=== PATIENT | male | born 1935 | race Caucasian/White ===

== ENCOUNTER 2017-03-23 14:05 | Emergency (ER) | payer MEDICARE, OTHER ==
[2017-03-23] MEDS ORDERED: LIDOCAINE 2%-EPI 1:100000 20 ML MDV ONE (14:26)
[2017-03-23] MEDS ORDERED: BACITRACIN OINT TOP STA (14:58)
[2017-03-23] MEDS ORDERED: TETANUS/DIPHTHERIA/PERTUSSIS 0.5 ML SYRINGE IM ONE ×2 (14:58→15:17)
--- NOTE | 2017-03-23 14:58 | ED Physician Documentation ---
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 He has a laceration there. Last tetanus was 6 years ago. No other injuries. No headache or neck pain. Not anticoagulated.) Review of Systems Ten Systems: 10 systems reviewed and negative Constitutional: reports: Reviewed and negative Ears: reports: Reviewed and negative Nose: reports: Reviewed and negative PD PAST MEDICAL HISTORY - Past Medical History Past Medical History: Yes Cardiovascular: High cholesterol HEENT: Other Other Past Medical History: Pressure to the eyes. - Past Surgical History Past Surgical History: No - Present Medications Home Medications: Ambulatory Orders Medication Instructions Recorded Confirmed Atorvastatin [Lipitor] 40 mg PO DAILY 03/23/17 03/23/17 Bacitracin Zinc 1 gm TP TID #1 oint...g. 03/23/17 Latanoprost 1 drops EACHEYE DAILY 03/23/17 03/23/17 - Allergies Allergies/Adverse Reactions: Allergies Allergy/AdvReac Type Severity Reaction Status Date / Time No Known Drug Allergies Allergy Verified 03/23/17 14:15 - Social History Does the pt smoke?: No Smoking Status: Never smoker Does the pt drink ETOH?: Yes Does the pt have substance abuse?: No - Immunizations Immunizations are current?: Yes PD ED PE NORMAL - Vitals Vital signs reviewed: Yes - General General: Alert and oriented X 3, No acute distress - HEENT HEENT: PERRL, EOMI, Other (There is a 3 cm fairly deep laceration over the upper cheek/inferior orbit on the right. There is no bony tenderness. No facial numbness. Smile is symmetric.) - Neck Neck: Supple, no meningeal sign, No bony TTP - Cardiac Cardiac: RRR, No murmur - Neuro Neuro: Alert and oriented X 3 Eye Opening: Spontaneous Motor: Obeys Commands Verbal: Oriented GCS Score: 15 - Psych Psych: Normal mood, Normal affect Results - Vitals Vitals: Vital Signs - 24 hr 03/23/17 14:11 Temperature 36.0 C L Heart Rate 92 Respiratory 16 Rate Blood Pressure 158/71 H O2 Saturation 99 Oxygen O2 Source Room air Procedures - Laceration (location) face Length in cm: 3 Wound type: Linear, Into muscle Neurovascular status: Sensory intact, Motor intact, Vascular intact Anesthesia: Lidocaine 2% with epi Wound Preparation: Betadine, Irrigated copiously NS Deep layer closure: Vicryl (5-0 3 sutures) Skin layer closure: Prolene, Interrupted, Size #-0 - enter number (6-0), Sutures - enter # (16) Other: Patient tolerated well, No complications, Neurovascular intact, Tetanus booster given Complexity: Intermediate Departure - Departure Disposition: 01 Home, Self Care Clinical Impression: Laceration Condition: Good Record reviewed to determine appropriate education?: Yes Instructions: ED Laceration Facial Sutr Tape Prescriptions: Bacitracin Zinc 1 gm TP TID #1 oint...g. Comments: Follow up with Dr. Noble in 6 days for suture removal, keep it moist with bacitracin ointment which is prescribed. Return if worse or if he develop a headache, neck pain, or other new apparent injuries. Your blood pressure was elevated today on check into the emergency department. This does not mean that you have hypertension, it is a common phenomenon to come to the emergency department and have elevated blood pressure. I recommend that you see your primary care physician within the week to have it rechecked when you are feeling better.
[2017-03-23] MEDS ORDERED: BACITRACIN OINT TOP ONE (15:18)
[2017-03-23 15:45] VITALS: BP 124/76
== END 2017-03-23 15:33 | disposition home or self-care (01) ==
LOC: ED 14:05
DX: S01.411A Laceration without foreign body of right cheek and temporomandibular area, initial encounter (principal); W18.09XA Striking against other object with subsequent fall, initial encounter; R03.0 Elevated blood-pressure reading, without diagnosis of hypertension; E78.00 Pure hypercholesterolemia, unspecified; Z23 Encounter for immunization
CPT/HCPCS: 12052; 90471; 90715; 99282; 99283; A9270

== ENCOUNTER 2019-05-22 10:59 | Outpatient (CLI) | payer MEDICARE, OTHER ==
--- NOTE | 2019-05-22 16:56 | XRAY Report ---
Reason: RIGHT KNEE PAIN Procedure Date: 05/22/2019 Accession Number: [id number] / [id number] Procedure: WCP - Knee 3 View RT CPT Code: Final Report FULL RESULT: EXAM: RIGHT KNEE RADIOGRAPHY EXAM DATE: 05/22/2019 10:59 AM. CLINICAL HISTORY: RIGHT KNEE PAIN. COMPARISON: None. TECHNIQUE: 3 views. FINDINGS: Bones: Normal. No fractures or bone lesions. Joints: Small to moderate suprapatellar effusion. Normal alignment. Significant medial compartmental narrowing with remodeling of articular contours and marginal spurring along medial tibial plateau. Mild patellofemoral joint space narrowing with marginal spurring. Soft Tissues: Normal. No soft tissue swelling. IMPRESSION: 1. Moderate degenerative changes, most pronounced in medial compartment. Kellgren Larry Grade 3-4. 2. Small to moderate joint effusion. Kellgren and Larry classification of osteoarthritis: Grade 0: no radiographic features of osteoarthritis are present Grade 1: doubtful joint space narrowing (JSN) and possible osteophytic lipping Grade 2: definite osteophytes and possible JSN on anteroposterior weight-bearing radiograph Grade 3: multiple osteophytes, definite JSN, sclerosis, possible bony deformity Grade 4: large osteophytes, marked JSN, severe sclerosis and definite bony deformity RADIA
== END 2019-05-22 11:00 | disposition home or self-care (01) ==
LOC: DI.WCP 10:59
PROVIDERS: ATTEND Family Medicine
DX: M17.11 Unilateral primary osteoarthritis, right knee (principal); M25.461 Effusion, right knee

== ENCOUNTER 2019-08-07 09:55 | Outpatient (CLI) | payer MEDICARE, OTHER | END 2019-08-07 09:56 | disposition critical access hospital (66) | LOC: EMS 09:55 | PROVIDERS: ATTEND Surgery | DX: R51 Headache (principal); R53.1 Weakness | CPT/HCPCS: A0425; A0429 ==

== ENCOUNTER 2019-08-07 10:11 | Emergency (ER) | payer MEDICARE, OTHER ==
--- NOTE | 2019-08-07 10:19 | ED Physician Documentation ---
PD HPI Fall - Stated complaint Stated Complaint: STROKE LIKE SYMPTOMS - History obtained from History obtained from: Patient - History of Present Illness Mechanism of injury: Other (This is a healthy 84-year-old gentleman that lives alone. He has a neighbor that visits him every couple of days. The neighbor saw him yesterday and he was in his normal state of health. Reportedly the patient came down the stairs this morning and evidently did okay and made himself a bagel. He thinks that was about 7:00. Then august be 730 he took a fall. He has obvious stroke findings but patient had not noted it so the time of onset is not exactly clear. It sounds like he made it down the stairs and made the bagel at 7 AM with his current symptoms I do not think he would have been able to do that if the stroke had been going on then. He denied injury or hitting his head in the fall.) - Additional information Additional information: Blood sugar prior to arrival was 109 Review of Systems Ten Systems: 10 systems reviewed and negative Constitutional: denies: Fever, Chills Cardiac: reports: Reviewed and negative Respiratory: reports: Reviewed and negative PD PAST MEDICAL HISTORY - Past Medical History Cardiovascular: High cholesterol HEENT: Other - Past Surgical History Past Surgical History: No - Present Medications Home Medications: Ambulatory Orders Medication Instructions Recorded Confirmed Atorvastatin [Lipitor] 40 mg PO DAILY 03/23/17 03/23/17 Bacitracin Zinc 1 gm TP TID #1 oint...g. 03/23/17 Latanoprost 1 drops EACHEYE DAILY 03/23/17 03/23/17 - Allergies Allergies/Adverse Reactions: Allergies Allergy/AdvReac Type Severity Reaction Status Date / Time No Known Drug Allergies Allergy Verified 08/07/19 10:30 - Social History Does the pt smoke?: No Smoking Status: Never smoker Does the pt drink ETOH?: Yes Does the pt have substance abuse?: No - Family History Family history: reports: Non contributory - Immunizations Immunizations are current?: Yes PD ED PE NORMAL - Vitals Vital signs reviewed: Yes - General General: Alert and oriented X 3, No acute distress, Other (Thinks it is August 01 as opposed to August 05 but otherwise alert and oriented) - HEENT HEENT: PERRL - Neck Neck: Supple, no meningeal sign, No bony TTP - Cardiac Cardiac: RRR, No murmur - Respiratory Respiratory: No respiratory distress, Clear bilaterally - Abdomen Abdomen: Soft, Non tender - Back Back: No CVA TTP, No spinal TTP - Derm Derm: Normal color, Warm and dry - Extremities Extremities: No edema, No calf tenderness / cord - Neuro Neuro: Alert and oriented X 3, Normal speech Results - Vitals Vitals: Vital Signs - 24 hr 08/07/19 08/07/19 08/07/19 10:13 10:39 10:57 Temperature 36 C L Heart Rate 71 70 60 Respiratory 23 16 17 Rate Blood Pressure 166/150 H 156/72 H 167/78 H O2 Saturation 97 99 98 08/07/19 08/07/19 11:03 11:27 Temperature Heart Rate 58 L 76 Respiratory 17 17 Rate Blood Pressure 176/72 H 161/90 H O2 Saturation 98 100 Oxygen O2 Source Room air - EKG (time done) 1040 Rate: Rate (enter#) (71) Rhythm: NSR [place]: Normal Intervals: Prolonged [place] QRS: Normal Ischemia: Non specific changes Compare to prior EKG: Old EKG unavailable Computer interpretation: Agree with computer - Labs Labs: Laboratory Tests 08/07/19 08/07/19 08/07/19 10:49 10:49 11:19 WBC 7.3 RBC 4.20 L Hgb 13.6 L Hct 40.8 L MCV 97.1 H MCH 32.4 H MCHC 33.3 RDW 12.7 Plt Count 240 MPV 9.5 Neut # (Auto) 5.2 Lymph # (Auto) 1.3 L Otero # (Auto) 0.5 Eos # (Auto) 0.2 Baso # (Auto) 0.1 Absolute Nucleated RBC 0.00 Nucleated RBC % 0.0 PT INR Whole Blood INR 1.1 Sodium 138 Potassium 4.1 Chloride 107 Carbon Dioxide 22 Anion Gap 9.0 BUN 31 H Creatinine 0.8 Estimated GFR (MDRD) 93 Glucose 101 H Calcium 9.2 Total Bilirubin 1.6 H AST 30 ALT 20 Alkaline Phosphatase 33 L Total Protein 7.7 Albumin 4.5 Globulin 3.2 Albumin/Globulin Ratio 1.4 Lipase 26 08/07/19 11:19 WBC RBC Hgb Hct MCV MCH MCHC RDW Plt Count MPV Neut # (Auto) Lymph # (Auto) Otero # (Auto) Eos # (Auto) Baso # (Auto) Absolute Nucleated RBC Nucleated RBC % PT 13.4 H INR 1.2 Whole Blood INR Sodium Potassium Chloride Carbon Dioxide Anion Gap BUN Creatinine Estimated GFR (MDRD) Glucose Calcium Total Bilirubin AST ALT Alkaline Phosphatase Total Protein Albumin Globulin Albumin/Globulin Ratio Lipase - Rads (name of study) CTA Head Neck Radiology: EMP read contemporaneously (R ICA occlusion with stenosis in R Vert and R LOCKSTITCH WAISTLINE JOINER) CT Head Radiology: EMP read contemporaneously (Involving the right MCA stroke, subacute in appearance) PD MEDICAL DECISION MAKING - ED course ED course: 84-year-old gentleman presents with what looks like an acute stroke. The time of onset is not quite clear. He has a "rasmussen indifference" about the situation. It sounds like he was able to make it down the stairs at 7 AM, but the appearance of his head CT suggest that this is significantly older than just a few hours old. The last time he was seen normal was yesterday. As such the case was discussed by phone with Dr. Hollie Tripp at [facility]. She agrees he is not a TPA candidate but it looks like he is got a cut off in the carotid and they were bringing him down as a code IR for potential intervention there. - Critical Care Time(min): 40 Time Includes: Direct patient care, Review records, Reassess patient, Document care, Coordinate care, Medical consult, Family consult for tx dec Data interpretation: Labs, Pulse ox Procedures excluded from critical care time: EKG Departure - Departure Disposition: 02 Transfer Acute Care Hosp Clinical Impression: Cerebrovascular accident (CVA), Carotid occlusion, right Condition: Critical Discharge Date/Time: 08/07/19 11:44 NIHSS - Time Time: 10:12 - Level of Consciousness Level of consciousness: (0) Alert, Keenly responsive LOC Questions: (0) Answers both Q's correct LOC Commands: (0) Performs both correctly - Gaze Best Gaze: (1) Partial gaze palsy (cannot look left past midline) - Visual Visual: (0) No loss - Facial Palsy Facial Palsy: (2) Partial paralysis - Motor Arms (both separate) Motor Arm (right): (0) No drift Motor Arm (left): (1) Drift - Motor Legs (both separate) Motor Leg (right): (0) No drift Motor Leg (left): (1) Drift - Limb Ataxia Limb Ataxia: (0) Absent - Sensory Sensory: (1) Mywh-wn-dxdcwmyo loss (LUE>LLE) - Best Language Best Language: (0) No aphasia - Dysarthria Dysarthria: (0) Normal - Extinction and Inattention (formally neg Extinction and inattention: (1) Visual,tactile,auditory,spatial, or personal inattention - Total Score/Results Total Score/Result: 7
[2019-08-07] MEDS ORDERED: IOVERSOL 320 100 ML VIAL IVP ONE ×2 (10:43→14:16)
--- NOTE | 2019-08-07 10:49 | CT Report ---
Reason: stroke Procedure Date: 08/07/2019 Accession Number: [id number] / [id number] Procedure: CT - Head W/O Stroke Protocol CPT Code: Final Report FULL RESULT: CT HEAD WITHOUT CONTRAST INDICATION: 84-year-old male with left-sided weakness. Concern for CVA. Please assess. TECHNIQUE: Sequential 5 mm axial images were obtained through the brain. In accordance with CT protocol optimization, one or more of the following dose reduction techniques were utilized for this exam: automated exposure control, adjustment of mA and/or KV based on patient size, or use of iterative reconstructive technique. COMPARISON: None. FINDINGS: There is generalized dilatation of the cerebral cortical sulci and cerebellar folia, considered within normal limits for stated age. There is a mild ex-vacuo dilatation of the third and lateral ventricles. No hydrocephalus. There is excessive noise (quantum mottle artifact) on brain window images that decreases the sensitivity for detection of subtle parenchymal abnormality such as acute ischemic infarction. In addition, there is artifact on multiple axial slices secondary to patient motion. A well-defined geographic area of abnormal hypodensity is identified involving cortex and underlying white matter in the lateral aspect of the mid and posterior right temporal lobe and anterior right occipital lobe, consistent with infarction in the right MCA territory. The age of the infarction is difficult to determine. There is positive mass-effect manifested as cortical sulcal effacement suggesting that this probably represents a recent (acute to early subacute) infarction. There is no evidence of complicating hemorrhage. A mild to moderate amount of white matter disease is identified in the supratentorial brain, likely representing chronic microangiopathy. The attenuation of the cortex and white matter is otherwise unremarkable. There is no intracranial hemorrhage. No abnormal extra-axial fluid collection. Calcified atherosclerotic plaque is noted in the carotid siphons. The middle ear cavities and mastoid air cells appear well aerated and clear. Polypoid mucosal thickening is identified in the inferior right maxillary sinus. There is opacification or subtotal opacification of a few anterior ethmoid air cells bilaterally. The paranasal sinuses are otherwise essentially clear. Noted is a horizontally impacted maxillary molar that protrudes through the floor of the left maxillary sinus into the alveolar recess (see image 1 of series #3 and image 12 of series #5). IMPRESSION: 1. This is a motion limited examination. 2. A well-defined, wedge-shaped area of hypodensity is seen involving cortex and white matter in the lateral right temporal and occipital lobes, consistent with recent (? EArly subacute) infarction in the right MCA territory. There is no evidence of complicating hemorrhage. Only mild localized mass-effect is demonstrated. 3. No other acute/subacute intracranial pathology is identified. The critical test notification system was initiated by Dr. Italo Smith at 10:41 AM on 08/07/2019. The above critical test findings were discussed with Dr. Gage Lynn by Dr. Italo Smith at 10:47 AM on 08/07/2019.
[2019-08-07 10:58] LABS: BASOPHILS # (AUTO) 0.1 10^3/uL (0.0-0.1); BASOPHILS % (AUTO) 0.7 %; EOSINOPHILS # (AUTO) 0.2 10^3/uL (0.0-0.7); EOSINOPHILS % (AUTO) 2.3 %; HGB - HEMOGLOBIN 13.6 g/dL (14.0-18.0); LYMPHOCYTES # (AUTO) 1.3 10^3/uL (1.5-3.5); MEAN CORPUSCULAR HEMOGLOBIN 32.4 pg (27.0-31.0); MEAN CORPUSCULAR HGB CONC 33.3 g/dL (32.0-36.0); MEAN CORPUSCULAR VOLUME 97.1 fL (80.0-94.0); MEAN PLATELET VOLUME 9.5 fL (7.4-11.4); MONOCYTES # (AUTO) 0.5 10^3/uL (0.0-1.0); NEUTROPHILS # (AUTO) 5.2 10^3/uL (1.5-6.6); NEUTROPHILS % (AUTO) 71.6 %; PLT - PLATELET COUNT 240 10^3/uL (130-450); RED CELL DISTRIBUTION WIDTH 12.7 % (12.0-15.0); WHITE BLOOD COUNT 7.3 x10^3/uL (4.8-10.8)
--- NOTE | 2019-08-07 11:06 | CT Report ---
Reason: Ivory miller Procedure Date: 08/07/2019 Accession Number: [id number] / [id number] Procedure: CT - ANGIO HEAD W/WO CPT Code: Final Report FULL RESULT: CT ANGIOGRAM HEAD AND POSTCONTRAST HEAD CT INDICATION: 84-year-old male with left-sided weakness. Concern for CVA. TECHNIQUE: CT angiogram head 80 mL of Optiray 320 contrast were injected at a rapid rate through a large bore, left antecubital intravenous catheter. The head was scanned helically during arterial phase. The data was reconstructed into 0.5 mm axial images. In addition, MIP reconstructions have been generated in multiple projections to allow better assessment of the intracranial arteries. Postcontrast head CT Sequential 5 mm axial images were obtained through the brain following the CT angiogram. In accordance with CT protocol optimization, one or more of the following dose reduction techniques were utilized for this exam: automated exposure control, adjustment of mA and/or KV based on patient size, or use of iterative reconstructive technique. COMPARISON: None. FINDINGS: Anterior circulation: There is calcified plaque at the left carotid siphon without significant associated left ICA stenosis. No left ICA aneurysm is demonstrated. There is absence of intraluminal contrast in the right ICA, extending from distal cervical segment, craniad, into the petrous and cavernous segments. There is a small amount of intraluminal contrast in the supraclinoid and paraclinoid segments. There is reconstitution of the supraclinoid ICA. The A1 segment of the right anterior cerebral artery is mildly hypoplastic. However, the left A1 segment is robust and an anterior indicating artery is demonstrated. There is contrast filling of a few of the anterior aspect of the right posterior communicating artery, however, no contrast is seen in the mid and distal thirds of the posterior communicating artery concerning for possible thrombosis. There is relatively good filling of the M1 segment right MCA without significant M1 segment stenosis. In addition, there is filling of M2 branches at the bifurcation with obvious stenosis or occlusion affecting the proximal M2 branches. The left MCA is unremarkable. No aneurysm is demonstrated and there is no evidence of occlusion or hemodynamically significant stenosis affecting the main branches of the left MCA. Posterior circulation: The proximal and middle thirds of the right vertebral artery are patent. There is little if any intraluminal contrast in the distal third, extending to the vertebrobasilar junction suggesting either occlusion or high-grade stenosis. A small amount of intraluminal contrast is seen in small caliber right PICA. The left vertebral artery is patent throughout. No left PICA is identified. The basilar artery is small but patent throughout. There is filling of both superior cerebellar arteries. A small size limits assessment, however, grossly no significant stenosis is demonstrated. The main branches of the left [employer]IC[employer] PHYSICIAN are patent without stenosis. There is a small, likely hypoplastic P1 segment for the right posterior cerebral artery. No filling of P2 or distal right AEROSPACE MEDICINE PHYSICIAN branches is demonstrated, consistent with occlusion, age indeterminate. There is a small left posterior communicating artery. No aneurysms are demonstrated arising from the basilar artery trunk or apex. Postcontrast head CT No enhancing space-occupying mass lesion is demonstrated. There appears to be good intraluminal contrast enhancement in the dural venous sinuses and deep venous structures. IMPRESSION: CT angiogram head 1. There is occlusion of the right ICA, from below the skull base to at least the cavernous segment. There is reconstitution of the supraclinoid segment through intracranial collaterals. The main collateral appears to be from the contralateral ICA by means of the anterior communicating artery and A1 segments of the anterior cerebral arteries. 2. There is contrast within the anterior third of the right posterior communicating artery. However, no contrast is seen in the mid or distal third suggesting thrombosis, age indeterminate. 3. The main branches for the right MCA appear to be patent and the caliber is similar to the contralateral side. 4. Left ICA and main branches of the left YULI and MCA appear widely patent. An anterior communicating artery is demonstrated. There appears to be good filling of A2 and distal YULI branches bilaterally. 5. Absence of intraluminal contrast in the distal third of the V4 segment for right vertebral artery suggests either occlusion or high-grade stenosis, age indeterminate. The left vertebral artery is widely patent throughout. 6. There is a small P1 segment for the right posterior cerebral artery, probably developmentally hypoplastic. No filling of the P2 or distal right AEROSPACE MEDICINE PHYSICIAN branches is demonstrated suggesting occlusion, age indeterminate. Postcontrast head CT No enhancing space-occupying mass lesion is demonstrated. The call report notification system was initiated by Dr. Italo Smith at 10:52 AM on 08/07/2019. The above call report findings were discussed with Dr. Gage Lynn by Dr. Italo Smith at 10:57 AM on 08/07/2019.
[2019-08-07 11:27] LABS: INR 1.2 (0.8-1.2); PT - PROTHROMBIN TIME 13.4 secs (9.9-12.6)
[2019-08-07 11:28] VITALS: BP 161/90
--- NOTE | 2019-08-07 11:28 | CT Report ---
Reason: Ivory miller Procedure Date: 08/07/2019 Accession Number: [id number] / [id number] Procedure: CT - ANGIO NECK W CPT Code: Final Report FULL RESULT: CT ANGIOGRAM NECK INDICATION: 84-year-old male with left-sided weakness. Concern for CVA. Please assess. TECHNIQUE: 80 mL of Optiray 320 contrast were injected at a rapid rate through a large bore, left antecubital intravenous catheter. The neck was scanned helically during arterial phase. The data was reconstructed into 0.5 mm axial images. In addition, MIP reconstructions have been generated in a multiple projections to allow better assessment of the extracranial carotid and vertebral arteries. Significant arterial stenoses will be assessed using NASCET type measurements. In accordance with CT protocol optimization, one or more of the following dose reduction techniques were utilized for this exam: automated exposure control, adjustment of mA and/or KV based on patient size, or use of iterative reconstructive technique. COMPARISON: None. FINDINGS: There is normal branching of the aortic arch. Atherosclerotic disease is demonstrated within the arch. There is calcified plaque at the origin of the left subclavian artery. Motion and beam-hardening artifact limits evaluation, however, the possibility of hemodynamically significant stenosis at the left subclavian artery origin is considered unlikely (see image 114 of series 5). No significant stenosis is seen in the innominate artery or the proximal left common carotid artery. Right carotid artery: There is calcified plaque at the carotid bifurcation extending into the carotid bulb. There is a focal, high-grade stenosis in the bulb about 5.5 mm distal to its origin (see image 108 of series 6). There is absence of intraluminal contrast, craniad extending over a distance of about 4 mm. Then there is a small amount of intraluminal contrast extending for a short segment in the distal bulb/proximal cervical ICA for roughly 10 mm. More craniad, no intraluminal contrast is seen within the extracranial right ICA. There is no significant stenosis at the origin of the external carotid artery which appears patent. Left carotid artery: There is heavily calcified plaque in the distribution of the carotid bulb, extending along the posteromedial wall of the artery with associated narrowing. At the level of maximal narrowing the lumen is reduced to about 2.7 mm AP (image 294 of series 2). More distally, the artery measures about 5.2 mm diameter. This is consistent with a close to 50% NASCET type stenosis. The external carotid artery appears widely patent. Right vertebral artery: Hypoplastic. There is mild narrowing at the origin. The V1 segment is otherwise unremarkable. The V2 and V3 segments are patent without significant focal narrowing. Left vertebral artery: There is calcified plaque at the origin. There appears to be severe narrowing at the origin (see image 116 of series 5) however, it is difficult to obtain an accurate, NASCET type measure of stenosis at the origin. This probably represents 70% or greater narrowing. The V1 segment is otherwise unremarkable. The V2 and V3 segments are patent without significant focal stenosis. IMPRESSION: 1. Occlusion of right internal carotid artery in the neck, as described, age indeterminate. 2. Atherosclerotic plaque at the left carotid bifurcation gives rise to close to 50% narrowing in the left carotid bulb. 3. There appears to be fairly severe atherosclerotic narrowing at the origin of the dominant left vertebral artery. The actual degree of stenosis is difficult to determine on the sequences provided. No other significant stenosis is identified in the extracranial vertebral arteries.
[2019-08-07 11:36] LABS: ALBUMIN 4.5 g/dL (3.2-5.5); ALBUMIN/GLOBULIN RATIO 1.4 (1.0-2.2); BILIRUBIN,TOTAL 1.6 mg/dL (0.2-1.0); CALCIUM 9.2 mg/dL (8.5-10.3); CREATININE 0.8 mg/dL (0.6-1.2); TOTAL PROTEIN 7.7 g/dL (6.7-8.2)
== END 2019-08-07 11:44 | disposition short-term general hospital (02) ==
LOC: EDUNIT# → ED 10:11
DX: I63.9 Cerebral infarction, unspecified (principal); I65.21 Occlusion and stenosis of right carotid artery
CPT/HCPCS: 36415; 70450; 70496; 70498; 80053; 83690; 85025; 85610; 93005; 99285; 99291; Q9967

== ENCOUNTER 2019-09-25 13:18 | Outpatient (CLI) | payer MEDICARE, OTHER | END 2019-09-25 13:19 | disposition EMS.NT | LOC: EMS 13:18 | PROVIDERS: ATTEND Surgery | DX: Z03.89 Encounter for observation for other suspected diseases and conditions ruled out (principal) ==

== ENCOUNTER 2019-12-04 08:00 | Outpatient (CLI) | payer MEDICARE, OTHER ==
[2019-12-04 18:35] LABS: BILIRUBIN,URINE NEGATIVE (NEGATIVE); GLUCOSE, URINE (UA) NEGATIVE (NEGATIVE); KETONES,URINE (UA) NEGATIVE (NEGATIVE); LEUKOCYTE ESTERASE, URINE NEGATIVE (NEGATIVE); NITRITE,URINE NEGATIVE (NEGATIVE); OCCULT BLOOD,URINE NEGATIVE (NEGATIVE); PH,URINE 6.5 PH (5.0-7.5); PROTEIN,URINE NEGATIVE (NEGATIVE); UROBILINOGEN,URINE 0.2 (NORMAL) E.U./dL (NORMAL)
[2019-12-04 18:41] LABS: CLARITY,URINE CLEAR (CLEAR)
[2019-12-04 18:42] LABS: BACTERIA,URINE None Seen /HPF (None Seen); RBC,URINE 0-5 /HPF (0-5); SQUAMOUS EPITHELIAL CELL,UR NONE SEEN (<= Few)
== END 2019-12-04 23:59 | disposition home or self-care (01) ==
LOC: LAB.R 08:00
PROVIDERS: ATTEND Family Medicine
DX: R30.0 Dysuria (principal); R41.82 Altered mental status, unspecified
CPT/HCPCS: 81001; 87086

== ENCOUNTER 2020-01-22 09:15 | Outpatient (CLI) | payer MEDICARE, OTHER ==
--- NOTE | 2020-01-22 13:54 | CONSULTATION NOTE ---
Palliative Care Consultation - Referral Referring Provider: Dr. Yair Noble Time of Visit: [id number] Referral setting: Home Referral Reason: CVA with residual effects/Advanced Care Planning - Information Sources Records reviewed: Previous records reviewed History/Review of Systems obtained from: Patient, Family (significant other, Viviana), Caregiver Exam limitations: Clinical condition (cogntive impairment due to CVA) - History of Present Illness Brief History of Present Illness: This is an engaging 85-year-old male who is seen in evaluation today for initial palliative care consultation due to residual effects of CVA including left hemiparesis, cognitive deficits, and functional decline with his private caregiver and significant other, Viviana present. 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 He was "quite conscious in regards to his health and was taking his blood pressure every morning and recording it. Due to a series of unfortunate events he was transferred to [facility] and then was discharged to a rehab facility in [place]. There are limited rehab facilities available due to the coronavirus pandemic. Also unfortunate as the patient significant other of 27 years was out of state with her own health concerns and therefore the patient had temporary guardianship with his friends, José Manuel and Armida and this is subsequently transitioned to a court reported guardian, Анна. The patient was in the facility at [place] for approximately 5 weeks. He lost approximately 30 pounds in 5 weeks. He previously weighed about 190 pounds prior to his stroke. The patient's significant other reports that they needed an hoop maker in order to have the patient released. Since the patient's stroke his significant other has noted that his short-term memory is impaired but his long-term memory remains intact. He continues with residual left-sided weakness and is quite "fidgety." The patient's significant other also reports that there are times that the patient is "somewhere else." Typically he will believe that he is in another location and will proceed to report different activities regarding that. He is restless at night. The patient significant other and caregivers try to keep the patient occupied during the day and avoidance of daytime napping. He is presently on mirtazapine 15 mg nightly and quetiapine 25 mg twice daily. The patient significant other, Viviana is unclear if the quetiapine has provided relief for the patient's symptoms since initiation. She does report that it seems that in the last few weeks there has been a switch that has been turned on as the patient himself has been more pleasant to her and more engaged. Since returning back to his home, he has 24-hour caregiving support from jg Ramesh. He has also been followed by [facility] and has worked with PT, OT, and speech. He is pending to be discharged from speech as he has met his goals. He had formed quite a relationship with the speech-language pathologist and his disappointed to no longer continue that relationship. The patient is seen in his tilt in space wheelchair, well-groomed and without acute distress. He is often fidgeting with his right hand with his watch her clothing during assessment. 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 Support System: The patient has been twice. He has been with his significant other, Viviana for the last 27 years. They met attending [employer]. Both parties are anabaptism. The patient has never had any children. He and his significant other moved to [facility] [place] in 1998 as he purchased property in the area 1971 while he was stationed on [place] [facility]. 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 He also served in [place] and per his significant other was shot down serving during the war. He is a [employer] graduate from [employer] in 1959. He has enjoyed painting and water colors as well as carving and painting sculptured birds. Since his stroke he now enjoys watching the news such as [employer] in the [employer] as well as football. He has 24-hour caregiving support from jg Ramesh and has 2 primary caregivers, Joshua and Aziza. Family History - Family History Family History: Mother: , Father: Family History Comment/Other: His father at the age of 96, his mother from colon cancer at the age of 60. Medications/Allergies - Medications Home Medications: Ambulatory Orders Medication Instructions Recorded Confirmed Atorvastatin [Lipitor] 40 mg PO DAILY 03/23/17 01/22/20 Acetaminophen [Pain Reliever Adult] 15 ml PO Q8H PRN 01/22/20 01/22/20 Aspirin 81 mg PO DAILY 01/22/20 01/22/20 Levothyroxine Sodium [Synthroid] 0.5 tab PO DAILY 01/22/20 01/22/20 Lidocaine HCl [Aspercreme 1 applic TP DAILY MDD to b/l knees 01/22/20 01/22/20 Lidocaine] Menthol/Zinc Oxide [Calmoseptine 1 applic TP DAILY 01/22/20 01/22/20 Ointment] Mirtazapine 15 mg PO QPM 01/22/20 01/22/20 QUEtiapine [SEROquel] 25 tab PO .BID 1400 AND QPM 01/22/20 01/22/20 Tamsulosin HCl [Flomax] 0.4 mg PO QPM 01/22/20 01/22/20 polyethylene glycoL 3350 [Miralax] 17 gm PO DAILY PRN 01/22/20 01/22/20 - Allergies Allergies/Adverse Reactions: Allergies Allergy/AdvReac Type Severity Reaction Status Date / Time No Known Drug Allergies Allergy Verified 08/07/19 10:30 Review of Systems - Constitutional Constitutional: reports: Weight loss (appx 30lbs while in inpatient rehab, see HPI; Left MAC 26cm). denies: Fatigue, Fever - Eyes Eyes: reports: Vision loss (to left eye reported), Corrective lenses - Ears, Nose & Throat Ears, Nose & Throat: reports: Hearing loss, Hearing aids (not wearing hearing aids as he will fidget with them) - Cardiovascular Cardiovascular: denies: Palpitations, Chest pain - Respiratory Respiratory: denies: Cough - Gastrointestinal Gastrointestinal: reports: Good appetite. denies: Constipation, Diarrhea, Vomiting, Other (no cough during meals) - Genitourinary Genitourinary: reports: Incontinence. denies: Dysuria - Musculoskeletal Musculoskeletal: reports: Muscle weakness (due to CVA with left sided weakness), Joint pain (b/l knees due to OA), Assistive devices, Transfer issues. denies: Joint swelling - Integumentary Integumentary: denies: Rash - Neurological Neurological: reports: General weakness, Memory problems - Psychiatric Psychiatric: reports: Delusions, Other (sundowning behaviors reported around 1500) - Endocrine Endocrine: reports: Hypothyroidism - Hematologic/Lymphatic Hematologic/Lymphatic: denies: Recurrent infections - All Other Systems All Other Systems: reports: Reviewed and negative Physical Exam - Vital Signs Temperature: 36.5 C Pulse Rate: 70 O2 Saturation: 94 (on RA at rest) Blood Pressure: 134/66 - Physical Exam General Appearance: positive: No acute distress, Alert, Other (OOB in tilt in space wheelchair, well groomed) Eyes Bilateral: positive: Normal inspection, PERRL, Other (attempted to assess visual trin[place] but patient could not follow commands in order to test appropriately) ENT: positive: No signs of dehydration Neck: positive: Trachea midline, Other (thin) Cardiovascular: positive: Regular rate & rhythm, No murmur Respiratory: positive: No respiratory distress, Breath sounds nml. negative: Rales Abdomen: positive: Non-tender, Soft, Nml bowel sounds Skin: positive: Other (Visible skin intact) Extremities: positive: No pedal edema Neurologic/Psychiatric: positive: Disoriented to time (Disoriented and confused), Weakness, Other (Left sided weakness compared to right with lead nurse strength and resistance to force. Unable to ambulate. Unable to follow commands. Talkative.) Palliative Care Pain: Comment (b/l knees, stable with application of aspercreme) Drowsiness/Sedation: Mild (1-3) Nausea: None Anorexia: None Dyspnea: None Depression: Mild (1-3) Anxiety: None Feelings of wellbeing/Perceived Quality of Life: Comment (Patient states he "feels like a million bucks") Sleep: Variable sleep pattern Constipation: Managed, Intermittent constipation (bowel movement every other day) Performance Status: Prior to the patient's CVA in July 2019 he was fully functional and independent performing his IADLs and ADLs as well as routine exercise. After he sustained his CVA in July 2019 he has no longer ambulatory, has left-sided residual weakness, cognitive impairment, is continent of bowel and bladder, requires assistance with activities of daily living. The patient utilizes a tilt in space wheelchair. He has a Ariana lift within the home as well as a hospital bed with specialty mattress. PPS 40% - Palliative Care Discussion: The patient had the misfortune of sustaining ischemic right MCA stroke That has resulted in multiple deficits such as functional decline, left-sided weakness, cognitive impairments, and alternations in mood. It was unfortunate at the time that the patient sustained his stroke that his significant other of 27 years was in [place] with family that subsequently resulted in court report did guardianship. This is been quite distressing for the patient significant other, Viviana. Viviana plans to work with the court court appointed guardian, Анна Martin moving forward. It has led to much frustration and worry on the part of Viviana. Per Viviana's report as she changed her D POA to her son while she was in [place] due to her own health concerns the patient himself changed his D POA to long a longer and include her thus resulting in the subsequent series of events that have occurred resulting in a court appointed guardian. The patient himself does not perceive his alterations in capabilities. His caregiver for and significant other reports that he is no longer able to read or write after the stroke. He sees that he will be able to recover and if someone were to go against him he says "to hell with them." The patient himself is quite attuned to his environment and listening to all that is being said. He is quite engaged and attempts to follow the course of the conversation and contributes where he can. Viviana, has her own health concerns and this is only compounded by the patient's deterioration in his health status. Viviana questions "where is my EN?" She finds that they have good days and bad days. On the good days she sees glimmers of the patient prior to his stroke. Impression and Recommendations - Palliative Care Impression: This is an 85-year-old gentleman who had the misfortune of sustaining an ischemic right MCA stroke that has led to a functional decline, left hemiparesis, behavioral disturbance and cognitive deficits. The patient now has a court appointed guardian overseeing his care. The patient himself does not perceive his present deficits. Palliative care to continue to provide support with symptom management, exploration of goals of care, supportive listening and anticipatory guidance. Recommendations/Counseling Done: 1. CVA with residual weakness. Sustained in July 2019. Chronic/Progressive. Supportive care. Continue secondary preventative measures for stroke in optimizing blood pressure control, ASA and statin therapy. Quires 24-hour supervision within the home. Fall precautions. 2. Cognitive deficit due to CVA. Noted fidgeting as result of CVA. Provided suggestions to patient's significant other for a soft fabric child's book to fiddle with, folding laundry, as well as flipping with a Rubik's cube. Patient unlikely to return to baseline cognition and provide support where he is presently. Supportive listening provided to the patient significant other. Some noted underlying behavioral disturbances likely due to CVA. As the patient is demonstrating increased restlessness indicative of sundowning at approximately 3 PM on an almost daily basis, recommend administration of quetiapine at 2 PM and to continue 25 mg at bedtime. Continue to monitor effects of quetiapine with black box warning reviewed with the patient significant other and understanding verbalized. May need to adjust medication regimen in the future to optimize comfort. 3. Depression with history of weight loss. More acute during inpatient rehabilitation. MAC to left upper arm 26 cm. We will continue to monitor MAC circumference. No concerns reported regarding appetite. Continue mirtazapine 15 mg nightly. Continue to monitor. 4. Caregiver burden. The patient significant other, Viviana has underlying health issues of her own and no local family. She does have support from close local friends. However, she has been experiencing grief over the loss of the patient's formal herself and requires additional emotional support that would be beneficial to be provided by palliative care social work. Supportive listening provided. 5. Advanced care planning. Noted in last office visit in 09/2019 that a POLST was completed as DN AR with comfort measures. We will follow-up regarding this POLST in subsequent visit. The patient significant other is requesting that the influenza vaccine be administered to the patient as he is homebound. Will request influenza vaccine administered at upcoming home visit. The patient has experienced trauma due to his experience in the rehabilitation center at [place] and the patient significant other prefers that the patient have his care within the home to limit distress and disruption. Moving forward we will continue to tease out goals of care. Time Spent: F/u n 2-3 weeks or prn. Total time spent 105 minutes with greater than 50% of this spent in counseling and coordination of care with patient and significant other, Viviana; palliative care philosophy; examination of patient; review of symptom management and anticipatory guidance. Contacted patient's court appointed guardian, Анна Pantoja [phone] to update regarding POC with questions answered and addressed. Анна is to meet the patient in his home the week of 01/27/2020. Disclaimer: The chart note was formulated using voice recognition technology and unfortunately sound alike errors may occur.
== END 2020-01-22 09:16 | disposition home or self-care (01) ==
LOC: PC 09:15
PROVIDERS: ATTEND Nurse Practitioner Family
DX: Z51.5 Encounter for palliative care (principal); I69.319 Unspecified symptoms and signs involving cognitive functions following cerebral infarction; I69.354 Hemiplegia and hemiparesis following cerebral infarction affecting left non-dominant side; I69.315 Cognitive social or emotional deficit following cerebral infarction; I69.398 Other sequelae of cerebral infarction; F05 Delirium due to known physiological condition; E78.00 Pure hypercholesterolemia, unspecified; R63.4 Abnormal weight loss; F32.9 Major depressive disorder, single episode, unspecified; Z79.899 Other long term (current) drug therapy; Z79.82 Long term (current) use of aspirin; Z99.3 Dependence on wheelchair; Z87.891 Personal history of nicotine dependence; Z65.3 Problems related to other legal circumstances
CPT/HCPCS: 99345

== ENCOUNTER 2020-02-05 15:20 | Outpatient (CLI) | payer MEDICARE, OTHER ==
--- NOTE | 2020-02-05 19:04 | CONSULTATION NOTE ---
Palliative Care Follow Up - Referral Referring Provider: Dr. Yair Noble Time of Visit: [id number] Referral setting: Home Referral Reason: Dementia with behavioral disturbances/History CVA with residual effects/Flu - Information Sources Records reviewed: Previous records reviewed History/Review of Systems obtained from: Patient, Family (significant other, Viviana), Friend (Armida) Exam limitations: Clinical condition (Cognitive impiarment due to dementia and history of CVA) - History of Present Illness Update Brief HPI Update: This is an 85-year-old man who was seen in follow-up today for dementia with behavioral disturbances, residual effects of CVA including left hemiparesis and caregiver burden with his significant other, Viviana and family friend, Armida present. Please see detailed history and HPI from 01/22/2020. The patient has a history of being restless at night. The patient significant other, Viviana and his caregivers try to keep the patient occupied during the day with avoidance of daytime napping. When last evaluation it was reported that the patient was demonstrating increased restlessness in the late afternoon indicative of sundowning and his quetiapine dosing was changed with his administration times for 25 mg at 1500 and at bedtime. It is difficult for the patient's significant other and caregivers to administer medications other than the morning as the patient is suspicious and will only take his medications and yogurt. He will however, take his liquid acetaminophen. Hit has not been always successful but the patient was receiving his afternoon dose of quetiapine. The patient has 2 primary private caregivers providing 24/ care, ARETHA and Aziza. It has been noted that with Aziza, the patient has developed a rapport that he is more agreeable and is not can additive or belligerent. Prior to yesterday, the patient was calm while Aziza was within the home. Then beginning yesterday in till today the patient has been lashing out verbally and he was combative yesterday to his private caregiver.Aziza has been with the patient since he has come home from [facility]. However, he has gone through 2 prior private caregivers due to his outbursts and can batted episodes. He was initiated on quetiapine 25 mg daily at the end of December by his primary care provider. His appetite is presently stable. No reported concerns with coughing surrounding mealtime. He is status post [facility]LINE [facility]INATOR evaluation with [facility] and has been discharged. The patient also does have fluctuations with his mood with some possible underlying dementia and is presently on mirtazapine 15 mg nightly. Patient is seen today in his tilt in space wheelchair, well-groomed and without apparent distress. He is quite conversant today. 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 Social History - Living Situation Living arrangement: At home Living Situation: With spouse/s.o. Support System: The patient has been twice. He has been with his significant other, Viviana for the last 27 years. They met while attending [employer] and both parties are judaism. The patient has never had any children. They relocated to [facility] in 1998. 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 He graduated from the [employer] in [place]. Since the patient's discharge from subacute rehab at a facility in [place], the patient has had 24-hour caregiving support from visiting Domitila. He has 2 caregivers, Joshua and Aziza. Medications/Allergies - Medications Home Medications: Ambulatory Orders Medication Instructions Recorded Confirmed Atorvastatin [Lipitor] 40 mg PO DAILY 03/23/17 01/22/20 Acetaminophen [Pain Reliever Adult] 15 ml PO Q8H PRN 01/22/20 01/22/20 Aspirin 81 mg PO DAILY 01/22/20 01/22/20 Levothyroxine Sodium [Synthroid] 0.5 tab PO DAILY 01/22/20 01/22/20 Lidocaine HCl [Aspercreme 1 applic TP DAILY MDD to b/l knees 01/22/20 01/22/20 Lidocaine] Menthol/Zinc Oxide [Calmoseptine 1 applic TP DAILY 01/22/20 01/22/20 Ointment] Mirtazapine 15 mg PO QPM 01/22/20 01/22/20 Tamsulosin HCl [Flomax] 0.4 mg PO QPM 01/22/20 01/22/20 polyethylene glycoL 3350 [Miralax] 17 gm PO DAILY PRN 01/22/20 01/22/20 risperiDONE [RisperDAL] 0.25 mg PO DAILY 02/05/20 02/05/20 - Allergies Allergies/Adverse Reactions: Allergies Allergy/AdvReac Type Severity Reaction Status Date / Time No Known Drug Allergies Allergy Verified 08/07/19 10:30 Review of Systems - Constitutional Constitutional: reports: Weight loss (appx 30lbs while in inpatient rehab, Left MAC 26cm January 2020). denies: Fever - Eyes Eyes: reports: Vision loss (to left eye reported) - Ears, Nose & Throat Ears, Nose & Throat: reports: Hearing loss, Hearing aids (not wearing hearing aids as he will fidget with them) - Cardiovascular Cardiovascular: denies: Chest pain - Respiratory Respiratory: denies: Wheezing - Gastrointestinal Gastrointestinal: reports: Good appetite. denies: Constipation, Vomiting - Genitourinary Genitourinary: reports: Incontinence. denies: Dysuria - Musculoskeletal Musculoskeletal: reports: Muscle weakness (due to CVA with left sided weakness), Joint pain (b/l knees due to OA), Assistive devices, Transfer issues. denies: Joint swelling - Integumentary Integumentary: denies: Rash - Neurological Neurological: reports: General weakness, Memory problems - Psychiatric Psychiatric: reports: Delusions, Aggitation, Other (+sundowning; +verbal outbursts) - Endocrine Endocrine: reports: Hypothyroidism - All Other Systems All Other Systems: reports: Reviewed and negative (Patient is a poor historian due to dementia. Review of systems supplemented patient's significant other.) Physical Exam - Vital Signs Temperature: 36.5 C Pulse Rate: 70 O2 Saturation: 93 (on RA at rest) Blood Pressure: 134/85 (left wrist cuff) - Physical Exam General Appearance: positive: No acute distress, Alert, Other (OOB in tilt in space wheelchair, well groomed) Eyes Bilateral: positive: PERRL ENT: positive: Pharynx nml, No signs of dehydration. negative: Purulent nasal drainage, Oral lesions Neck: positive: Trachea midline, Other (thin) Cardiovascular: positive: Regular rate & rhythm, No murmur Respiratory: positive: No respiratory distress, Breath sounds nml, Diminished in bases Abdomen: positive: Non-tender, Soft, Nml bowel sounds Skin: positive: Other (Visible skin intact) Extremities: positive: No pedal edema Neurologic/Psychiatric: positive: Disoriented to time, Weakness, Other (Left sided weakness compared to right. Tangential in this thought process this afternoon with confabulation of stories. No evidence of aggitation.) Palliative Care - POLST Patient has POLST: Yes POLST Status: DNR, Comfort Measures Pain: Pain unchanged (bilateral knees due to OA, controlled with application of aspercream or PRN tylenol) Depression: Mild (1-3) Feelings of wellbeing/Perceived Quality of Life: Excellent Sleep: Variable sleep pattern Constipation: Managed, Intermittent constipation Performance Status: Prior to the patient's CVA in July 2019 he was fully functional and independent performing his IADLs and ADLs as well as a routine exercise regimen. After he sustained a CVA in July 2019 he is no longer ambulatory. Has left hemiparesis, incontinent of bowel and bladder, and requires assistance with activities of daily living. He is in a tilt in space wheelchair. He has a Ariana lift within the home as well as a hospital bed with specialty mattress. - Palliative Care Discussion: The patient has good days and bad days. There is reported difference in how his 2 private caregivers provide their caregiving skills.He respondents more favorably to 1 than the other given that there are different methods of caretaking. He does have aggressive outbursts and does have a history of being combative. He also has demonstrated evidence of sundowning behavior. However, due to the patient's need to have his medications crushed or in a liquid form and administration is often difficult. The patient significant other, Viviana was out of town when the patient sustained his CVA resulting in the patient having a court appointed guardian, Анна Martin. Upon review today with Анна, she first sees a partnership with Viviana with Viviana leading the decision-making process as she "knows Tank best." For smaller decisions Анна reports that Viviana may make that determination for medical management on her own but for larger, complex decisions Анна wishes to be included in the decision-making process. Has the patient significant other, Viviana was not present at the time the patient sustained his CVA she has felt like she is "walking on egg shells in my own home." She has private caregivers within her home and she has delegated to spaces that are soley hers. She is an individual that does not wish to have conflict and this is how she approaches the caregivers as well as the patient himself. Strongly encouraged that she not be afraid to read [facility] assistance given her own health concerns. The patient's SO concern is if something were to happen to her then she would not wish the patient to go to a facility, if at all possible. Impression and Recommendations - Palliative Care Impression: This is an 85-year-old gentleman who has had the misfortune of sustaining an ischemic right MCA stroke that has led to a functional decline, left hemiparesis and behavioral disturbances. Prior to the patient's CVA he demonstrated evidence of cognitive impairment, likely some underlying Alzheimer's dementia. The patient will have intermittent periods of agitation and aggressive behavior. This is difficult to manage given his suspicion regarding oral medications. Will trial liquid risperidone. Palliative care to continue provide support with symptom management, exploration of goals of care, supportive listening and anticipatory guidance. Recommendations/Counseling Done: 1. Dementia with behavioral disturbances. Multifactorial due to underlying cognitive deficits prior to sustaining a CVA in July 2019. Given that the patient displays increased restlessness typically and the evenings is likely indicative of sundowning behavior. He was tried on quetiapine 25 mg at 2 PM and to remain on quetiapine 25 mg at bedtime. However, given the patient's av ersions to pills and the need for administration in pudding, it is difficult for the patient's significant other and caregivers to administer multiple doses throughout the day and would benefit from a liquid formulation for management of his symptoms. Discussed with the patient significant other the need for herself and the caregiver safety within the home. Discontinue quetiapine at 3 PM. Initiate risperidone 0.25 mg nightly and 0.25 mg daily as needed for increased agitation. To discontinue quetiapine at bedtime once risperidone is available. Advised that risperidone holds the same blackbox warning as quetiapine with the patient significant other verbalizing understanding and agreement to proceed to optimize quality of life. There is room for dose adjustment of risperidone for titration. Continue to monitor and provide support to maximize comfort. 2.Depression with a history of weight loss. Weight loss is more acute during inpatient rehabilitation. No concerns regarding appetite or evidence of dysphagia. Presently on mirtazapine 15 mg nightly. Given the patient's history of agitation and depression would consider switching from mirtazapine to citalopram for further management of the symptoms via a cross taper. At the present time, wish to only make 1 large medication change at a time. Continue to monitor. 3. Caregiver burden. The patient's significant other, Viviana, has underlying health issues of her own and no local family. She does have the support from local friends whom she is close with including, Armida and José Manuel. Viviana continues to experience grief over the loss of the patient's Former self and the hurtful things that he may say to her due to his cognitive impairment and history of CVA. She is also adjusting to having 24-hour caregivers within her home without a lack of privacy. She is trying to avoid confrontation with the caregivers within the home and keep the peace as well as trying to maintain her own health, which is suffering due to the emotional and physical toll that caregiving is taking upon her. Strongly encouraged the patient significant other to delineate the roles of the private caregivers within her home and if need be, escalate to the car and yard supervisor of the private caregivers. Also encouraged her to look into support groups with a list that is available at [employer] as well as looking into the Alzheimer's Association website for additional caregiving resources. 4. Advance care planning. The patient does not recognize his deficits due to his cognitive impairment as well as his functional impairment that have resulted from his CVA. He continues to have good days and bad days per his significant other's report. Ultimately, the patient's significant other, Viviana wishes to keep the patient out of a facility if "at all possible." She will also wishes to focus on comfort for the patient. Moving forward we will continue to tease out goals of care and upon next evaluation will request for copy of POLST. 5.Vaccine administration. Per the patient's significant other's request had verbal permission from patient's court appointed guardian, Анна Martin, influenza vaccine administered to right deltoid after purpose, dose, and side effects reviewed at length with the patient and significant other as well as a court appointed guardian with understanding verbalized and agreement to proceed. Vaccine maker LIDIA SMITH lot number [id number] expires October 13, 2020. Time Spent: Follow-up in 2 weeks or as needed. Total time spent 100 minutes with greater than 50% of this time spent in counseling and coordination of care with the patient's significant other, Viviana as well as family friend, Armida; strategizing regarding reduction of caregiving burden; review of medication and pathophysiology of CVA; examination of patient; review of symptom management and anticipatory guidance. Disclaimer: The chart note was formulated using voice recognition technology and unfortunately sound alike errors may occur.
== END 2020-02-05 15:21 | disposition home or self-care (01) ==
LOC: PC 15:20
PROVIDERS: ATTEND Nurse Practitioner Family
DX: Z51.5 Encounter for palliative care (principal); F03.91 Unspecified dementia, unspecified severity, with behavioral disturbance; F32.9 Major depressive disorder, single episode, unspecified; I69.354 Hemiplegia and hemiparesis following cerebral infarction affecting left non-dominant side; R32 Unspecified urinary incontinence; R15.9 Full incontinence of feces; Z23 Encounter for immunization; Z66 Do not resuscitate
CPT/HCPCS: 99350

== ENCOUNTER 2020-02-19 10:00 | Outpatient (CLI) | payer MEDICARE, OTHER ==
--- NOTE | 2020-02-19 13:26 | CONSULTATION NOTE ---
Palliative Care Follow Up - Referral Referring Provider: Dr. Noble Time of Visit: [id number] Referral setting: Home Referral Reason: Dementia with behavioral disurbances s/p CVA - Information Sources Records reviewed: Previous records reviewed History/Review of Systems obtained from: Patient, Family (sigbificant other, Viviana), Caregiver (Catarina) Exam limitations: Clinical condition (Cogntive impairment due to dementia and history of CVA) - History of Present Illness Update Brief HPI Update: This is an 85-year-old man who was seen in follow-up today for dementia with behavioral disturbances and residual effects due to CVA including left hemiparesis Within his home setting with his significant other, Viviana and caregiver, Catarina present. Please see detailed history from HPI dated 01/22/2020. The patient has a history of being restless later in the afternoons and evenings indicative likely of behavior. He had previously been on quetiapine but this was difficult for administration given the patient's inability to swallow pills and quetiapine does not come in a liquid formation. He has transition to risperidone 0.25 mg in the evenings and this was initiated on 02/12/2020. He has had some noted improvements per the patient significant other and his caregiver, Catarina with his nights being somewhat improved. He has tolerated the administration of risperidone in his yogurt. No adverse effects reported by the patient's significant other. He does seem to have increased outbursts when there is a transition from his 2 caregivers. He seems to favor his caregiver Aziza and her delivery of care over his caregiver state he per his significant other, Catarina's report. He typically will be increased in his restlessness the day after Aziza leaves. This past Sunday the patient was restless and fidgety and his significant other attempted to administer acetaminophen for potential pain as this is typically an indicator for him and he retaliated by grabbing her wrists and having an outburst. The patient has grabbed Viviana's arms in the past leaving bruising. Viviana denies feeling unsafe during the situations and typically will walk away to diffuse the situation if an outburst occurs. The patient continues to work on establishing rapport with his caregiver Catarina. His significant other, Viviana reports that they are "doing okay." Presently. His appetite remains hearty and stable. There are no coughs associated during mealtime. He continues to lament that he no longer has services from [facility] as there was a particular therapist that he bonded with. He has increase muscle tightness in the mornings that responds well to application of hemp cream that is massaged. He also receives acetaminophen approximately 500 mg 3 times daily most days. The patient's 1 caregiver, Aziza was questioning if the patient needed further adjustment to his regiment however, his significant other reports that he is comfortable and typically he has complaints of discomfort to his buttocks given in positioning in the chair. He does not have any skin breakdown to his sacrum or buttocks and is in place a Zentact mosaic cushion. Caregivers as well as the patient significant other attempt to assist repositioning frequently. Patient is seen today in his tilt in space wheelchair, in comfortable pajamas watching television with no apparent distress. 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 Social History - Living Situation Living arrangement: At home Living Situation: With spouse/s.o. Support System: The patient has been twice. He has been with his significant other, Viviana, for the last 27 years. They met while attending [employer]. The patient has no children. The patient and significant other requited to [facility] in 1998. 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 The patient has a court reported guardian, Анна Pantoja, Who has agreed to defer to day-to-day decisions to the patient's significant other, Viviana. The patient has 24-hour caregiving support from jg Bayard and has 2 caregivers, Catarina and Aziza. Medications/Allergies - Medications Home Medications: Ambulatory Orders Medication Instructions Recorded Confirmed Atorvastatin [Lipitor] 40 mg PO DAILY 03/23/17 01/22/20 Acetaminophen [Pain Reliever Adult] 15 ml PO Q8H PRN 01/22/20 01/22/20 Aspirin 81 mg PO DAILY 01/22/20 01/22/20 Levothyroxine Sodium [Synthroid] 0.5 tab PO DAILY 01/22/20 01/22/20 Lidocaine HCl [Aspercreme 1 applic TP DAILY MDD to b/l knees 01/22/20 01/22/20 Lidocaine] Menthol/Zinc Oxide [Calmoseptine 1 applic TP DAILY 01/22/20 01/22/20 Ointment] Mirtazapine 15 mg PO QPM 01/22/20 01/22/20 Tamsulosin HCl [Flomax] 0.4 mg PO QPM 01/22/20 01/22/20 polyethylene glycoL 3350 [Miralax] 17 gm PO DAILY PRN 01/22/20 01/22/20 risperiDONE [RisperDAL] 0.5 mg PO DAILY 02/05/20 02/05/20 Hemp Cream 1,000,000 TP DAILY PRN 02/19/20 risperiDONE [RisperDAL] 0.25 mg PO DAILY PRN 02/19/20 02/19/20 - Allergies Allergies/Adverse Reactions: Allergies Allergy/AdvReac Type Severity Reaction Status Date / Time No Known Drug Allergies Allergy Verified 02/19/20 13:46 Review of Systems - Constitutional Constitutional: reports: Weight loss (appx 30lbs while in inpatient rehab, Left MAC 26cm January 2020). denies: Fever, Poor appetite - Eyes Eyes: reports: Vision loss (left eye) - Ears, Nose & Throat Ears, Nose & Throat: reports: Hearing loss, Hearing aids (not wearing hearing aids as he will fidget with them) - Cardiovascular Cardiovascular: denies: Edema - Respiratory Respiratory: denies: Cough - Gastrointestinal Gastrointestinal: reports: Good appetite. denies: Constipation (bowel movement every 48-72 hours. Evacuates better on BSC.), Vomiting - Genitourinary Genitourinary: reports: Incontinence - Musculoskeletal Musculoskeletal: reports: Muscle pain (upper thighs in AM due to tension that is relieved with massage and hemp cream if needed), Muscle weakness (due to CVA with left sided weakness), Joint pain (b/l knees due to OA), Assistive devices, Transfer issues. denies: Joint swelling - Integumentary Integumentary: denies: Dryness - Neurological Neurological: reports: General weakness, Memory problems - Psychiatric Psychiatric: reports: Delusions, Aggitation, Other (+verbal outbursts) - Endocrine Endocrine: reports: Hypothyroidism - Hematologic/Lymphatic Hematologic/Lymph: Other (No recuurent infections) - All Other Systems All Other Systems: reports: Reviewed and negative (Patient is a poor historian due to dementia. Review of systems supplemented patient's significant other.) Physical Exam - Vital Signs Temperature: 36.6 C Pulse Rate: 78 O2 Saturation: 95 (on RA) Blood Pressure: 121/60 (left wrist) - Physical Exam General Appearance: positive: No acute distress, Alert, Other (OOB in tilt in space wheelchair) Eyes Bilateral: positive: Normal inspection ENT: positive: No signs of dehydration Neck: positive: Other (thin) Cardiovascular: positive: Regular rate & rhythm, No murmur Respiratory: positive: No respiratory distress, Breath sounds nml, Diminished in bases Abdomen: positive: Non-tender, Soft, Nml bowel sounds, Other (bladder nondistended) Skin: positive: Other (Visible skin intact without dryness) Extremities: positive: No pedal edema Neurologic/Psychiatric: positive: Disoriented to time, Weakness, Other (Left sided weakness compared to right. No evidence of aggitation.) Palliative Care - POLST Patient has POLST: Yes POLST Status: DNR, Comfort Measures Pain: Pain unchanged (To bilateral knees due to OA and muscle tension first thing in the morning controlled with acetaminophen and application of hemp cream massaged) Depression: Mild (1-3) Sleep: Variable sleep pattern Constipation: No Performance Status: See detailed history from 02/05/2020 - Palliative Care Discussion: The patient's restlessness in the evenings is doing slightly better with transition from quetiapine to risperidone per his private caregiver and significant other's report. He continues to have episodes of outbursts. The latest outburst may have been been due to underlying embarrassment in front of a friend when he grabbed Viviana's wrists and would not let go. Viviana reports that the patient will "never take no for an answer." She herself reports that she does not feel unsafe and has garnered information and how to approach the patient moving forward in such a circumstance. She and the other caregivers have the patient tries to lash out will walk away to diffuse the situation. The patient's significant other, Viviana, continues to adjust with having private caregivers within her home at all times. She feels that the situation with the caregivers have improved slightly and she has not reached out to their senior software project manager. She has an underlying fear of losing a caregiver and recognizes that she is not able to perform these tasks independently. She continues to be offered support and assistance by both she and the patient's local friends. Impression and Recommendations - Palliative Care Impression: This is an 85-year-old man who has had the misfortune of sustaining an ischemic right MCA stroke that has led to a functional decline, left hemiparesis and behavioral disturbances. Prior to the patient's CVA he demonstrated evidence of cognitive impairments, likely Alzheimer's dementia. The patient has had some improvement in his restlessness overnight with transition to risperidone but continues to have periods of outbursts. Palliative care to continue provide support with symptom management, supportive listening and anticipatory guidance. Recommendations/Counseling Done: 1. Dementia with behavioral disturbances. Multifactorial due to underlying cognitive deficits prior to sustaining a CVA in July 2019. The patient has had some improvement with his restlessness overnight but is not fully controlled. Increase risperidone (1 mg/mL) to 0.5 mg (0.5mL) Every evening for agitation. Continue risperidone (1mg/mL) 0.25mg (0.25mL) Once daily as needed for agitation. We reviewed side effects of risperidone with the patient significant other with understanding verbalized and continues to wish to proceed with the medication to optimize quality of life after wearing risk versus benefit. Discussed avoidance-- or at the very least limitation-- of alcohol consumption due to side effects. Continue to monitor and provide support to maximize the patient's comfort 2.Depression with a history of weight loss. Weight loss was more acute during inpatient rehabilitation. No concerns regarding appetite. Presently on mirtazapine 15 mg nightly. Continue mirtazapine at the present time but if agitation and restlessness continue despite dose adjustment of risperidone may consider transition to citalopram. Continue to monitor. 3. Osteoarthritis and muscle pain. Provided contact information for physical therapist Almita Gale for counterstrain physical therapy and significant other to contact to obtain additional information regarding services. The patient is likely to benefit to maintain his musculature and reduce muscle tension in his upper thighs that developed overnight. May continue acetaminophen 500 mg 3 times daily and advised not to exceed 3000 mg of acetaminophen daily from all sources with understanding verbalized. May continue use of massaging as this has been quite effective for the patient. Introduced Voltaren gel for application the significant other declines. Also introduce potential use of Salonpas patch 4% to be applied to the patient's lower back in the a.m. and removed in the p.m. for pain and this may be obtained [id number]. Continue frequent repositioning of the patient while out of bed in his tilt in space wheelchair and continue use of Roho mosaic cushion for pressure redistribution. 4.Caregiver burden. Continue to provide support for the patient significant other, Viviana as this has been a difficult adjustment for her on multiple levels of having to adjust to having caregivers within her home 06/11 and the cognitive changes that have resulted from the patient sustaining a CVA. Viviana, has underlying health problems as well and is to undergo further diagnostic work-up later this month. Continue to encourage her to be an advocate for herself in making her needs known with the caregivers as well as with the senior software project manager of the caregivers. We will continue to provide supportive listening and in the future reoffer palliative care social work for additional support. Time Spent: F/u in 3-4 weeks or PRN. Total time spent 65 minutes with greater than 50% of this spent in counseling and coordination of care with patient's SO Viviana and caregiver, Catarina; supportive listening with strategies for being an advocate of herslef and self care; examination of patient; review of medication; review of pain and symptom management and anticipatory guidance. Disclaimer: The chart note was formulated using voice recognition technology and unfortunately sound alike errors may occur.
== END 2020-02-19 10:01 | disposition home or self-care (01) ==
LOC: PC 10:00
PROVIDERS: ATTEND Nurse Practitioner Family
DX: Z51.5 Encounter for palliative care (principal); F03.91 Unspecified dementia, unspecified severity, with behavioral disturbance; I69.354 Hemiplegia and hemiparesis following cerebral infarction affecting left non-dominant side; F32.9 Major depressive disorder, single episode, unspecified; R63.4 Abnormal weight loss; M17.0 Bilateral primary osteoarthritis of knee; M79.18 Myalgia, other site; Z79.899 Other long term (current) drug therapy; Z66 Do not resuscitate
CPT/HCPCS: 99350

== ENCOUNTER 2020-03-10 15:10 | Outpatient (CLI) | payer MEDICARE, OTHER ==
--- NOTE | 2020-03-10 20:30 | CONSULTATION NOTE ---
Palliative Care Follow Up - Referral Referring Provider: Dr. Yair Noble Time of Visit: [id number] Referral setting: Home Referral Reason: Dementia with behavioral disturbances/CVA - Information Sources Records reviewed: Previous records reviewed History/Review of Systems obtained from: Patient, Family (significant other, Viviana) Exam limitations: Clinical condition (Cognitive impairment due to dementia and history of CVA) - History of Present Illness Update Brief [facility] Update: This is an 85-year-old man who was seen in follow-up today for dementia with behavioral disturbances and residual effects due to CVA including left hemiparesis within his home setting with his significant other, Viviana present. Please see detailed history from HPI dated 01/22/2020. The patient's risperidone was increased from 0.255 mg to 0.5 mg in the evenings and this has provided a positive response. The patient has been last restless overnight. The patient's significant other also perceives less sundowning behavior recently. However, the patient also has been having his primary caregiver, Aziza who he has developed a good rapport with more regularly and typically responds well to her encouragement during their interactions. He has only required approximately 2 as needed doses of risperidone per the patient's significant other's report. The patient continues to have a hearty appetite and visibly from the significant others perception has had weight gain. The patient has also had less outburst specifically to directed at Viviana. The patient had developed 2 red rivera on his buttocks due to positioning in his tilt in space wheelchair. He continues on a Roho mosaic cushion with barrier cream application. The patient's significant other, Viviana reports that these sites are improving and have not worsened. He continues to be frequently repositioned. Otherwise, the patient's significant other denies any acute concerns to address further today. The patient himself is without worry or concerns. The patient is seen resting in bed with his eyes closed initially opening briefly and then keeping them closed but engaged during conversation. He is comfortable and in no evidence of distress. 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 Social History - Living Situation Living arrangement: At home Living Situation: With spouse/s.o. Support System: The patient has been twice. He has been with his significant other, Viviana for the last 27 years. The patient and Viviana met while attending [employer] and have noted children together. The patient has never had any children. 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 The patient has a court appointed guardian, Анна Martin who has agreed to defer the day-to-day decisions to the patient's significant other, Viviana. The patient has 24-hour caregiving support from visiting Domitila. Medications/Allergies - Medications Home Medications: Ambulatory Orders Medication Instructions Recorded Confirmed Atorvastatin [Lipitor] 40 mg PO DAILY 03/23/17 01/22/20 Acetaminophen [Pain Reliever Adult] 15 ml PO Q8H PRN 01/22/20 01/22/20 Aspirin 81 mg PO DAILY 01/22/20 01/22/20 Levothyroxine Sodium [Synthroid] 0.5 tab PO DAILY 01/22/20 01/22/20 Lidocaine HCl [Aspercreme 1 applic TP DAILY MDD to b/l knees 01/22/20 01/22/20 Lidocaine] Menthol/Zinc Oxide [Calmoseptine 1 applic TP DAILY 01/22/20 01/22/20 Ointment] Mirtazapine 15 mg PO QPM 01/22/20 01/22/20 Tamsulosin HCl [Flomax] 0.4 mg PO QPM 01/22/20 01/22/20 polyethylene glycoL 3350 [Miralax] 17 gm PO DAILY PRN 01/22/20 01/22/20 risperiDONE [RisperDAL] 0.5 mg PO DAILY 02/05/20 02/05/20 Hemp Cream 1,000,000 TP DAILY PRN 02/19/20 risperiDONE [RisperDAL] 0.25 mg PO DAILY PRN 02/19/20 02/19/20 - Allergies Allergies/Adverse Reactions: Allergies Allergy/AdvReac Type Severity Reaction Status Date / Time No Known Drug Allergies Allergy Verified 02/19/20 13:46 Review of Systems - Constitutional Constitutional: reports: Weight loss (appx 30lbs while in inpatient rehab, Left MAC 26cm January 2020; Left MAC today 26.5cm). denies: Fever, Poor appetite - Eyes Eyes: reports: Vision loss (left eye) - Ears, Nose & Throat Ears, Nose & Throat: reports: Hearing loss, Hearing aids (not wearing hearing aids as he will fidget with them) - Cardiovascular Cardiovascular: denies: Edema - Respiratory Respiratory: denies: Cough, Wheezing - Gastrointestinal Gastrointestinal: reports: Good appetite. denies: Abdominal pain, Constipation - Genitourinary Genitourinary: reports: Incontinence - Musculoskeletal Musculoskeletal: reports: Muscle pain (upper thighs in AM due to tension that is relieved with massage), Muscle weakness (due to CVA with left sided weakness), Joint pain (b/l knees due to OA, controlled), Assistive devices, Transfer issues. denies: Joint swelling - Integumentary Integumentary: reports: Dryness - Neurological Neurological: reports: General weakness, Memory problems - Psychiatric Psychiatric: reports: Aggitation (controlled) - Endocrine Endocrine: reports: Hypothyroidism - Hematologic/Lymphatic Hematologic/Lymph: Other (No recuurent infections) - All Other Systems All Other Systems: reports: Reviewed and negative (Patient is a poor historian due to dementia. Review of systems supplemented patient's significant other.) Physical Exam - Vital Signs Pulse Rate: 68 O2 Saturation: 96 (on RA at rest) Blood Pressure: 107/65 (left wrist cuff, lying down) - Physical Exam General Appearance: positive: No acute distress, Alert, Other (resting in bed, resting with eyes closed but engaged) ENT: positive: No signs of dehydration Neck: positive: Trachea midline, Other (thin) Cardiovascular: positive: Regular rate & rhythm, No murmur Respiratory: positive: No respiratory distress, Breath sounds nml, Diminished in bases Abdomen: positive: Non-tender, Soft, Nml bowel sounds Skin: positive: Other (Visible skin intact without dryness) Extremities: positive: No pedal edema Neurologic/Psychiatric: positive: Disoriented to time, Weakness, Other (Left sided weakness compared to right. Calm without aggitation.) Palliative Care - POLST Patient has POLST: Yes POLST Status: DNR, Comfort Measures - Palliative Care Discussion: The patient's restlessness in the evenings is better. He has had less outburst with his significant other, Viviana. There have been times when the patient himself has recognizes his outbursts and has apologized the next day to his significant other. Viviana relays that there have only been 1 or 2 occasions that and add needed dose of risperidone has had to be administered. Otherwise, the patient has been quite stable with his moods and also due to the fact that he gets on quite well with his primary caregiver, Aziza. His other caregiver continues to not quite click with the patient himself and Viviana is working with the agency to look at out tentative for caregiving. Viviana continues to adjust to her present circumstances with her oversight Of the private duty caregivers, care for the patient as well as care for herself. Viviana is 1 that reports that she typically internalizes her feelings and does not speak up. She has made some strides in recent weeks with reaching out to the it investment/portfolio manager regarding her concerns and had a recent day to herself with her thoughts and feelings. Impression and Recommendations - Palliative Care Impression: This is an 85-year-old gentleman who has had the misfortune of sustaining an ischemic right MCA stroke that has led to functional decline, left hemiparesis and behavioral disturbances. Prior to the patient's CVA he demonstrated evidence of cognitive impairments, likely Alzheimer's dementia. The patient has had improvement with his restlessness overnight with increase of risperidone. He typically does well with his primary caregiver, Aziza and there were looking for a new secondary caregiver. Palliative care to continue right support with symptom management, supportive listening and anticipatory guidance. Recommendations/Counseling Done: 1. Dementia with behavioral disturbances. Multifactorial due to underlying cognitive deficits prior to sustaining a CVA in July 2019. The patient's behaviors are presently controlled typically with his primary caregiver, Aziza. Continue risperidone 0.5 mg every evening for agitation. Continue risperidone 0.25 mg once daily as needed for agitation. On no disease modifying agents. Significant other is aware that this is a chronic, progressive disease. Continue to monitor and provide support to maximize the patient's comfort. 2. Depression with a history of weight loss. Weight loss was more acute during inpatient rehabilitation. No concerns regarding appetite and presents only hearty. 1 mirtazapine 15 mg nightly. Left MAC obtained today 26.5 cm increased by 0.59 cm from last evaluation. If needed in the future consider switching mirtazapine to citalopram if agitation and restlessness persist. Continue to monitor. 3. Caregiver burden. Continue to provide support for the patient's significant other, Viviana as she continues to have multiple stressors at this time. Viviana continues to oversee the care of the patient, oversight of the caregivers, and is subsequently having increased stressors as she internalizes her feelings and is subjecting to her own health concerns. She has made some strides and independence in these last few weeks and this EQUITIES ANALYST is thrilled with her progress. Continue to encourage Viviana to be an advocate for herself making her needs known with the caregivers as well as with the oversight scientific research manager of the caregivers. Per supportive listening provided and in the future reoff palliative care social media specialist for additional support. Time Spent: Follow-up in 6 to 8 weeks or as needed. Total time spent 50 minutes with greater than 50% of this spent in counseling coordination of care with the patient significant other Viviana and fili Armida; supportive listening for significant other regarding caregiver burden; examination of patient; review of medication and symptom management; and anticipatory guidance. Disclaimer: The chart note was formulated using voice recognition technology and unfortunately sound alike errors may occur.
== END 2020-03-10 15:11 | disposition home or self-care (01) ==
LOC: PC 15:10
PROVIDERS: ATTEND Nurse Practitioner Family
DX: Z51.5 Encounter for palliative care (principal); F03.91 Unspecified dementia, unspecified severity, with behavioral disturbance; F32.9 Major depressive disorder, single episode, unspecified; I69.354 Hemiplegia and hemiparesis following cerebral infarction affecting left non-dominant side
CPT/HCPCS: 99349

== ENCOUNTER 2020-04-06 09:08 | Outpatient (CLI) | payer MEDICARE, OTHER | END 2020-04-06 09:09 | disposition critical access hospital (66) | LOC: EMS 09:08 | PROVIDERS: ATTEND Surgery | DX: R41.82 Altered mental status, unspecified (principal); R11.2 Nausea with vomiting, unspecified; R14.0 Abdominal distension (gaseous) | CPT/HCPCS: A0425; A0427 ==

== ENCOUNTER 2020-04-06 09:23 | Emergency (ER) | payer MEDICARE, OTHER ==
[2020-04-06] MEDS ORDERED: SODIUM CHLORIDE 0.9% 1,000 ML IV STA ×2 (10:20→12:09)
--- NOTE | 2020-04-06 10:21 | CT Report ---
PROCEDURE: HEAD WO INDICATIONS: altered loc TECHNIQUE: Noncontrast 4.5 mm thick angled axial sections acquired from the foramen magnum to the vertex. For r adiation dose reduction, the following was used: automated exposure control, adjustment of mA and/or kV according to patient size. COMPARISON: CT head dated 08/07/2019 FINDINGS: Image quality: Excellent. CSF spaces: Basal cisterns are patent. No extra-axial fluid collections. Ventricles are normal in size and shape. Brain: No midline shift. Large chronic appearing right parieto-occipital infarct with evolutionary c hanges since 08/07/19. There is also chronic appearing encephalomalacia involving the anterior right t emporal lobe. No intracranial masses or hemorrhage. Seymour-white matter interface is normal. Skull and face: Calvarium and visualized facial bones are intact, without suspicious lesions. Sinuses: Visualized sinuses and mastoids are clear. IMPRESSION: No acute intracranial process. 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 Reviewed by: Abraham Garcia MD on 04/06/2020 10:20 AM [facility] Approved by: Abraham Garcia MD on 04/06/2020 10:20 AM PST Station ID: [id number]
--- NOTE | 2020-04-06 10:28 | XRAY Report ---
PROCEDURE: Chest 1 View X-Ray INDICATIONS: chest pain TECHNIQUE: One view of the chest was acquired. COMPARISON: None. FINDINGS: Surgical changes and devices: None. Lungs and pleura: No pleural effusions or pneumothorax. Lungs are clear. Mediastinum: Mediastinal contours appear normal. Heart size is normal. Bilateral shoulder joint degeneration. IMPRESSION: No acute disease Reviewed by: Abraham Garcia MD on 04/06/2020 10:27 AM [facility] Approved by: Abraham Garcia MD on 04/06/2020 10:27 AM [facility] Station ID: [id number]
--- NOTE | 2020-04-06 10:38 | ED Physician Documentation ---
PD HPI ALTERED MENTAL STATUS - Stated complaint Stated Complaint: AMS - Chief complaint Chief Complaint: Neuro - History obtained from History obtained from: Patient, EMS - History of Present Illness Timing - onset: Today Timing - duration: Hours Timing - details: Gradual onset, Still present Quality / character: Less responsive, Confused Associated symptoms: No: Fever, Headache, Stiff neck, Dyspnea, Cough, NVD, Urinary sx, General weakness, Focal weakness, Seizure activity Contributing factors: No: Anticoagulated Basline status: Ambulatory, Confused Similar symptoms before: Diagnosis (altered mental status) Recently seen: Not recently seen - Additional information Additional information: 85-year-old male s/p CVA with advanced dementia is cared for by his significant other and caregivers in his home 24 hours. This morning they went to get him out of bed and he was comatose not answering them and he vomited some brown material. He arrived to the emergency department with a distended abdomen and was not speaking. PD PAST MEDICAL HISTORY - Past Medical History Past Medical History: Yes Cardiovascular: High cholesterol Respiratory: None Neuro: CVA, Other Endocrine/Autoimmune: None GI: Other : Benign prostate hypertrophy HEENT: Glaucoma Psych: None Musculoskeletal: Osteoarthritis, Other Derm: Other - Past Surgical History Past Surgical History: No General: Colonoscopy - Present Medications Home Medications: Ambulatory Orders Medication Instructions Recorded Confirmed Atorvastatin [Lipitor] 40 mg PO DAILY 03/23/17 01/22/20 Acetaminophen [Pain Reliever Adult] 15 ml PO Q8H PRN 01/22/20 01/22/20 Aspirin 81 mg PO DAILY 01/22/20 01/22/20 Levothyroxine Sodium [Synthroid] 0.5 tab PO DAILY 01/22/20 01/22/20 Lidocaine HCl [Aspercreme 1 applic TP DAILY MDD to b/l knees 01/22/20 01/22/20 Lidocaine] Menthol/Zinc Oxide [Calmoseptine 1 applic TP DAILY 01/22/20 01/22/20 Ointment] Mirtazapine 15 mg PO QPM 01/22/20 01/22/20 Tamsulosin HCl [Flomax] 0.4 mg PO QPM 01/22/20 01/22/20 polyethylene glycoL 3350 [Miralax] 17 gm PO DAILY PRN 01/22/20 01/22/20 risperiDONE [RisperDAL] 0.5 mg PO DAILY 02/05/20 02/05/20 Hemp Cream 1,000,000 TP DAILY PRN 02/19/20 risperiDONE [RisperDAL] 0.25 mg PO DAILY PRN 02/19/20 02/19/20 - Allergies Allergies/Adverse Reactions: Allergies Allergy/AdvReac Type Severity Reaction Status Date / Time No Known Drug Allergies Allergy Verified 02/19/20 13:46 - Social History Does the pt smoke?: No Smoking Status: Never smoker Does the pt drink ETOH?: Yes Does the pt have substance abuse?: No - Immunizations Immunizations are current?: Yes - POLST Patient has POLST: Yes PD ED PE NORMAL - Vitals Vital signs reviewed: Yes (tachy and hypertensive) - General General: No acute distress, Well developed/nourished - HEENT HEENT: Atraumatic, PERRL, EOMI - Neck Neck: Supple, no meningeal sign, No bony TTP - Cardiac Cardiac: RRR, No murmur - Respiratory Respiratory: No respiratory distress, Other (bibasilar rhonchi) - Abdomen Abdomen: Soft, Non tender - Back Back: No CVA TTP, No spinal TTP - Derm Derm: Normal color, Warm and dry, No rash - Extremities Extremities: No deformity, No edema - Neuro Neuro: loop cutter 2-12 intact, No motor deficit, No sensory deficit Eye Opening: To Voice Motor: Obeys Commands Verbal: Confused GCS Score: 13 - Psych Psych: Normal mood, Normal affect Results - Vitals Vitals: Vital Signs - 24 hr 04/06/20 04/06/20 04/06/20 09:27 12:03 14:00 Temperature 36.8 C Heart Rate 110 H 93 108 H Respiratory 20 16 18 Rate Blood Pressure 123/110 H 111/92 H 136/90 H O2 Saturation 98 99 96 04/06/20 04/06/20 16:00 17:44 Temperature 36.8 C Heart Rate 106 H 104 H Respiratory 18 19 Rate Blood Pressure 136/74 H 164/105 H O2 Saturation 99 99 Oxygen O2 Source Room air - Labs Labs: Laboratory Tests 04/06/20 04/06/20 04/06/20 10:23 10:23 10:23 WBC 14.1 H RBC 4.60 L Hgb 14.6 Hct 44.1 MCV 95.9 H MCH 31.7 H MCHC 33.1 RDW 12.5 Plt Count 305 MPV 9.6 Neut # (Auto) 12.0 H Lymph # (Auto) 1.2 L [place] # (Auto) 0.7 Eos # (Auto) 0.1 Baso # (Auto) 0.1 Absolute Nucleated RBC 0.00 Nucleated RBC % 0.0 Sodium 139 Potassium 3.7 Chloride 105 Carbon Dioxide 25 Anion Gap 9.0 BUN 23 H Creatinine 0.9 Estimated GFR (MDRD) 81 L Glucose 120 H Lactic Acid 1.8 Calcium 9.5 Magnesium 2.2 Total Bilirubin 0.9 AST 22 ALT 21 Alkaline Phosphatase 56 Total Protein 7.7 Albumin 4.0 Globulin 3.7 Albumin/Globulin Ratio 1.1 Lipase 29 - Rads (name of study) CT Radiology: Prelim report reviewed (Impression: No acute intracranial process. Chronic right parietal occipital and anterior temporal lobe infarct. He did not came back in here and started doing some else), EMP read indepedently, See rad report chest Radiology: Prelim report reviewed (Impression: No acute disease.), EMP read indepedently, See rad report Procedures - IVC sono (time) 1000 Bedside IVC sono: IVC measures (cm) (unable to measure) PD MEDICAL DECISION MAKING - ED course Complexity details: reviewed results, re-evaluated patient, considered differential, d/w patient, d/w family (Keyshawn Vanessa [phone] primary career development consultant and significant other indicates he has advanced dementia and behavioral disturbance. ) ED course: 85-year-old male with a history of hypertension and has had a CVA in July of this year and he does have some advanced dementia as well. He is cared for by a significant other Viviana and she has had him come to the emergency department today when he was not responding to her. When he arrived to the emergency department he is not responding or talking to us much at all except for a word or 2 here and there. He was hydrated here in the emergency department with 3 L of saline and this was sequential improvement with each liter. He is now talking freely and he does have some behavioral disturbance which apparently is his baseline. He was unable to give us a urine specimen after multiple tries for multiple nurses and he refused catheterization. We did not feel it was appropriate to sedate the patient for catheterization. He appears improved and the underlying condition appears to be dehydration. Departure - Departure Disposition: 01 Home, Self Care Clinical Impression: Dehydration Condition: Stable Instructions: ED Dehydration Follow-Up: ELSIE BHAT MD [Physician No Access] - Discharge Date/Time: 04/06/20 21:39
[2020-04-06 10:41] LABS: BASOPHILS # (AUTO) 0.1 10^3/uL (0.0-0.1); BASOPHILS % (AUTO) 0.4 %; EOSINOPHILS # (AUTO) 0.1 10^3/uL (0.0-0.7); EOSINOPHILS % (AUTO) 0.9 %; HGB - HEMOGLOBIN 14.6 g/dL (14.0-18.0); LYMPHOCYTES # (AUTO) 1.2 10^3/uL (1.5-3.5); LYMPHOCYTES % (AUTO) 8.4 %; MEAN CORPUSCULAR HEMOGLOBIN 31.7 pg (27.0-31.0); MEAN CORPUSCULAR HGB CONC 33.1 g/dL (32.0-36.0); MEAN CORPUSCULAR VOLUME 95.9 fL (80.0-94.0); MEAN PLATELET VOLUME 9.6 fL (7.4-11.4); MONOCYTES # (AUTO) 0.7 10^3/uL (0.0-1.0); PLT - PLATELET COUNT 305 10^3/uL (130-450); RED CELL DISTRIBUTION WIDTH 12.5 % (12.0-15.0); WHITE BLOOD COUNT 14.1 x10^3/uL (4.8-10.8)
[2020-04-06 10:55] LABS: ALBUMIN/GLOBULIN RATIO 1.1 (1.0-2.2); BILIRUBIN,TOTAL 0.9 mg/dL (0.2-1.0); CALCIUM 9.5 mg/dL (8.5-10.3); CREATININE 0.9 mg/dL (0.6-1.2); MAGNESIUM 2.2 mg/dL (1.7-2.8); TOTAL PROTEIN 7.7 g/dL (6.7-8.2)
[2020-04-06 17:45] VITALS: BP 164/105
== END 2020-04-06 21:39 | disposition home or self-care (01) ==
LOC: EDUNIT# → ED 09:23
DX: E86.0 Dehydration (principal); F03.91 Unspecified dementia, unspecified severity, with behavioral disturbance; Z86.73 Personal history of transient ischemic attack (TIA), and cerebral infarction without residual deficits; I10 Essential (primary) hypertension; Z79.82 Long term (current) use of aspirin
CPT/HCPCS: 36415; 70450; 80053; 83605; 83690; 83735; 85025; 87040; 96360; 96361; 99282

== ENCOUNTER 2020-04-06 21:42 | Outpatient (CLI) | payer MEDICARE, OTHER | END 2020-04-06 21:43 | disposition home or self-care (01) | LOC: EMS 21:42 | PROVIDERS: ATTEND Surgery | DX: F03.91 Unspecified dementia, unspecified severity, with behavioral disturbance (principal); I69.354 Hemiplegia and hemiparesis following cerebral infarction affecting left non-dominant side | CPT/HCPCS: A0425; A0428 ==

== ENCOUNTER 2020-04-14 15:00 | Outpatient (CLI) | payer MEDICARE, OTHER ==
--- NOTE | 2020-04-14 18:14 | CONSULTATION NOTE ---
Palliative Care Follow Up - Referral Referring Provider: Dr. Noble Time of Visit: [id number] Referral setting: Home Referral Reason: ER f/u/Dementia with behavior - Information Sources Records reviewed: Previous records reviewed History/Review of Systems obtained from: Patient, Family (significant other, Viviana present) Exam limitations: Clinical condition (Cognitive impairment due to dementia and history of CVA with residual effects) - History of Present Illness Update Brief HPI Update: This is an 85-year-old gentleman who is seen in follow-up today with in his home for dementia with behavioral disturbances and residual effects due to CVA including left hemiparesis and follow-up due to recent emergency department visit with his significant other, Viviana present. The patient was taken to the emergency department on 04/06 after the patient was not responding to his private caregiver or his significant other. That morning his abdomen had been distended and he had an episode of emesis with some brown material. He had a CT T of the head performed that demonstrated no acute intracranial process. A chest CCT that demonstrated no acute disease. He subsequently was hydrated with 3 L of normal saline and subsequently improved back to his baseline. He was then transferred back home at his baseline condition. The patient today, does not recall the events or going to the emergency department last week. He has not had any further episodes of emesis. He denies abdominal pain. He typically has a bowel movement every day or every other day. His last bowel movement was on Sunday per significant other report. The patient's significant other, Viviana, reports that they are no longer masters sferring the patient to the bedside commode for defecation as it is quite a process with use of the Ariana lift and the patient has increased discomfort while sitting on the commode despite assistance with support of a pillow at his back. The patient has had progression of his dementia as noted by his significant other. He is requiring assistance with feeding now. He also requires assistance with holding glasses of liquid more routinely than before. Viviana, wishes to adjust the patient's Risperdal to divide the dose in the morning and the evening for additional support regarding the patient's agitated behaviors during the day and to assist with sleep overnight. He is also beginning to sleep more during the day. He is also providing lectures to Viviana in the private caregivers with accurate information such as history. He recently enacted that he was Kojo Flowers. The patient is seen in the living room out of bed in his tilt in space wheelchair with no evidence of acute distress. He is engaged and talkative. Social History - Living Situation Living arrangement: At home Living Situation: With spouse/s.o. Support System: Patient has been twice. He has been with his significant other, Viviana for the last 27 years. The patient has never had any children. 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 The patient has a court appointed guardian, Анна Martin who has agreed to defer the day-to-day decisions to the patient's significant other Viviana. Анна's contact number is [phone]. The patient has 24-hour caregiving support from jg Ramesh. Medications/Allergies - Medications Home Medications: Ambulatory Orders Medication Instructions Recorded Confirmed Atorvastatin [Lipitor] 40 mg PO DAILY 03/23/17 04/14/20 Acetaminophen [Pain Reliever Adult] 15 ml PO Q8H PRN 01/22/20 04/14/20 Aspirin 81 mg PO DAILY 01/22/20 04/14/20 Levothyroxine Sodium [Synthroid] 0.5 tab PO DAILY 01/22/20 04/14/20 Lidocaine HCl [Aspercreme 1 applic TP DAILY MDD to b/l knees 01/22/20 04/14/20 Lidocaine] Menthol/Zinc Oxide [Calmoseptine 1 applic TP DAILY 01/22/20 04/14/20 Ointment] Mirtazapine 15 mg PO QPM 01/22/20 04/14/20 Tamsulosin HCl [Flomax] 0.4 mg PO QPM 01/22/20 04/14/20 polyethylene glycoL 3350 [Miralax] 17 gm PO DAILY PRN 01/22/20 04/14/20 risperiDONE [RisperDAL] 0.25 mg PO BID 02/05/20 04/14/20 Hemp Cream 1,000,000 TP DAILY PRN 02/19/20 risperiDONE [RisperDAL] 0.25 mg PO DAILY PRN 02/19/20 04/14/20 - Allergies Allergies/Adverse Reactions: Allergies Allergy/AdvReac Type Severity Reaction Status Date / Time No Known Drug Allergies Allergy Verified 04/14/20 18:22 Review of Systems - Constitutional Constitutional: reports: Fatigue, Weight loss (appx 30lbs while in inpatient rehab, Left MAC 26cm January 2020; Left MAC 03/10/2020 26.5cm). denies: Fever, Poor appetite - Eyes Eyes: reports: Vision loss (left eye) - Ears, Nose & Throat Ears, Nose & Throat: reports: Hearing loss, Hearing aids (not wearing hearing aids as he will fidget with them) - Cardiovascular Cardiovascular: denies: Chest pain, Edema - Respiratory Respiratory: denies: Cough - Gastrointestinal Gastrointestinal: reports: Good appetite. denies: Abdominal pain, Constipation (bowel movement daily or every other day), Nausea, Vomiting - Genitourinary Genitourinary: reports: Incontinence. denies: Dysuria - Musculoskeletal Musculoskeletal: reports: Muscle weakness (due to CVA with left sided weakness), Joint pain (b/l knees due to OA, controlled), Assistive devices, Transfer issues. denies: Joint swelling - Integumentary Integumentary: reports: Dryness - Neurological Neurological: reports: General weakness, Memory problems - Psychiatric Psychiatric: reports: Aggitation (controlled), Behavior disturbances - Endocrine Endocrine: reports: Hypothyroidism - Hematologic/Lymphatic Hematologic/Lymph: Other (No recuurent infections) - All Other Systems All Other Systems: reports: Reviewed and negative (Patient is a poor historian due to dementia. Review of systems supplemented patient's significant other.) Physical Exam - Vital Signs Temperature: 36.6 C Pulse Rate: 67 O2 Saturation: 96 (on RA) Blood Pressure: 138/63 (left wrist cuff) - Physical Exam General Appearance: positive: No acute distress, Alert, Other (OOB in tilt in space wheelchair) Eyes Bilateral: positive: Normal inspection ENT: positive: No signs of dehydration Neck: positive: Trachea midline, Other (thin) Cardiovascular: positive: Regular rate & rhythm, No murmur Respiratory: positive: No respiratory distress, Breath sounds nml Abdomen: positive: Non-tender, Soft, Nml bowel sounds. negative: Guarding, Distended Skin: positive: Other (Visible skin intact without dryness) Extremities: positive: No pedal edema Neurologic/Psychiatric: positive: Disoriented to time, Weakness, Other (Left sided weakness compared to right. Calm without aggitation. +Confabulation) Palliative Care - POLST Patient has POLST: Yes POLST Status: DNR, Comfort Measures Performance Status: Prior to sustaining a CVA in July 2019 the patient was fully functional independent in performing his IADLs and ADLs as well as a routine exercise regimen. Since sustaining a CVA he is no longer ambulatory, has left he miparesis, and is incontinent of bowel and bladder. He has a Ariana lift within the home as well as a hospital bed with specialty mattress. He is now requiring assistance with meals. - Palliative Care Discussion: The patient is showing signs of progression in regards to his dementia with increased assistance and overall fatigue. His behaviors related to dementia are presently controlled with Risperdal and this is to be adjusted to 0.25 mg twice daily to limit daytime sedation and assist with symptom management during the day. The patient maintains his verbose knowledge in history and regarding his recall. His significant other, Viviana continues to find the changes that have undergone to the patient and his lack of dignity emotionally difficult. The patient has essentially changed and their lives together have also changed. Viviana and the patient continue to have support from close friends in the community as well as private caregiving support physically, within the home. Viviana is now beginning to struggle with her own health problems and is looking towards the future if something medically were to happen to her and she were to she would wish that the patient would be placed in an assisted living or long-term care facility. Unfortunately due to a series of unfortunate events, the patient has a court appointed guardian, Анна Martin. Viviana and Анна have been developing a report and Анна has previously made it known that she and the patient's significant other are in a partnership. For smaller and day-to-day decisions are to default to Viviana and for larger, more complex decisions to be made jointly by Viviana and Анна. After this last evaluation in the emergency department, Viviana wishes to focus on symptom management, and comfortable within the home and if deemed appropriate to then have the patient transferred to hospice services. She would elect to transfer to the hospital in circumstances such as trauma. Patient has POLST in place that reflects DN AR with comfort measures dated September 2019. Impression and Recommendations - Palliative Care Impression: This is an 85-year-old gentleman who has had the misfortune of sustaining an ischemic right MCA stroke that has led to functional decline, left hemiparesis and behavioral disturbances. His episodes of agitation and anxiety are presently controlled with Risperdal. He continues to demonstrate further functional decline and cognitive impairment due to his underlying dementia. The patient's significant other wishes to focus on comfort measures and treatment within the home with a transition to hospice when medically appropriate. Palliative care to continue provide support for symptom management, supportive listening and anticipatory guidance with transition to hospice when appropriate. Recommendations/Counseling Done: 1. Constipation. Intermittent. Recommend introduction of 1-2 prunes every other day for bowel regularity. Encouraged oral hydration throughout the day. Continue as needed MiraLAX as ordered. Continue to follow. 2. Dehydration. Status post emergency department visit 04/06. Resolved. Continue to encourage oral hydration throughout the day and provide assistance with the patient with administration. 3. Depression with a history of weight loss. Appetite remains stable. Weight loss noted to be acute due to inpatient rehabilitation. No evidence of dysphagia. Continue on mirtazapine 15 mg nightly. If the patient has reemergence of underlying agitation due to his dementia consider switching from mirtazapine to citalopram for management of symptoms was introduced to the patient's significant other today. As symptoms remain stable at the present time will continue present regimen. Continue to monitor. 4. Caregiver burden. The patient's significant other, Viviana has underlying health issues of her own and no local family. Viviana and the patient continued to have support from local friends. Supportive listening provided. Encourage Viviana to take time for self-care and continue to follow-up with her primary care provider for management. 5. Dementia with behavioral disturbances. Multifactorial due to underlying cognitive deficits prior to sustaining a CVA in July 2019. Transition to wrist beer down 0.25 mg twice daily and 0.25 mg daily as needed for agitation/restlessness. On no disease modifying agents. Is demonstrating further progression of disease. Given the patient's advanced age and chronic comorbidities a gradual decline is expected. 6. Advanced care planning. Patient has POLST in place as DN AR with comfort measures. Reviewed food advance care planning moving forward and patient significant other, Viviana wishes for the patient to be placed in a facility if she were to . As the patient has a court reported guardian, encourage Viviana to speak to the patient's court appointed guardian to relay her wishes and appropriate procedure to ensure that this is in place as upper cautionary measure. Encouraged the patient significant other to consider respite stay for the patient in the future. The patient's significant other wishes to focus on comfort measures within the home and transfer to the hospital for acute trauma only and when deemed appropriate to transition to hospice services to focus on comfort and a dignified . Time Spent: Follow-up 4 to 6 weeks or as needed. Total time spent 70 minutes with greater than 50% of this spent in counseling and coordination of care with the patient, significant other Viviana; supportive listening for significant other regarding caregiver burden; review of disease progression of dementia; examination of patient; review of medication and symptom management; and anticipatory guidance. Disclaimer: The chart note was formulated using voice recognition technology and unfortunately sound alike errors may occur.
== END 2020-04-14 15:01 | disposition home or self-care (01) ==
LOC: PC 15:00
PROVIDERS: ATTEND Nurse Practitioner Family
DX: Z51.5 Encounter for palliative care (principal); F03.91 Unspecified dementia, unspecified severity, with behavioral disturbance; I69.354 Hemiplegia and hemiparesis following cerebral infarction affecting left non-dominant side; I69.398 Other sequelae of cerebral infarction; R15.9 Full incontinence of feces; N39.498 Other specified urinary incontinence; F32.9 Major depressive disorder, single episode, unspecified; K59.00 Constipation, unspecified; Z79.899 Other long term (current) drug therapy; Z79.82 Long term (current) use of aspirin; Z86.39 Personal history of other endocrine, nutritional and metabolic disease; Z99.3 Dependence on wheelchair; Z66 Do not resuscitate
CPT/HCPCS: 99350

== ENCOUNTER 2020-05-13 14:55 | Outpatient (CLI) | payer MEDICARE, OTHER ==
--- NOTE | 2020-05-13 19:11 | CONSULTATION NOTE ---
Palliative Care Follow Up - Referral Referring Provider: Dr. Italo Reagan Time of Visit: [id number] Referral setting: Home - Information Sources Records reviewed: Previous records reviewed History/Review of Systems obtained from: Patient, Family (significant other, Viviana), Caregiver (Fariha) Exam limitations: Clinical condition (Cognitive impairment due to dementia and history of CVA with residual effects) - History of Present Illness Update Brief HPI Update: This is an 85-year-old gentleman who was seen in follow-up today within his home for dementia with behavioral disturbances, residual effects due to CVA, depression, and caregiver burden with his significant other, Viviana present. Earlier this month the patient significant other and private caregivers were having a difficult time controlling his outbursts and hit his behaviors. The patient in the past has been known to have verbal outbursts that would be specifically directed at his significant other of over 20 years, Viviana. There have been instances where he would also grab her wrist in the past. Given the difficulty in managing his behavior he was transitioned from mirtazapine to citalopram for his underlying agitation. He has tolerated this transition well per the significant other's report and he is much calmer. He does not have any displays of verbal outbursts. His risperidone was also increased to 0.5 mg in the evening and he remains on 0.25 mg in the morning. Again, overall the significant other reports positive changes since initiation of new SSRI. The patient is also sleeping through the night the last 4-5 nights. 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 The patient's significant other, Viviana also reports that the patient's primary caregiver through visiting [facility] is requesting for additional pain management. However, Viviana reports that the patient is comfortable and well controlled on acetaminophen. The patient is able to ask independently if he is in pain as well as the significant other caregivers taking cues from the patient if medication needs to be administered. The patient himself today, appears comfortable in his bed moving all extremities. At one point, he had his arms folded up underneath supporting his head with no evidence of discomfort to be engaged in conversation. Patient is seen in the living room at in his bed with no evidence of distressed. He is engaged and talkative. He is discussing his past experiences during the [place] War. Social History - Living Situation Living arrangement: At home Living Situation: With spouse/s.o., With caregiver(s) Support System: Patient has been previously twice. He has been with his significant other, Viviana for the last 27 years. The patient never had any children. 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 The patient has a court appointed guardian, Анна Martin who has agreed to defer the day-to-day decisions to the patient's significant other, Viviana. Анна's contact number is [phone]. The patient has 24-hour caregiving support from visiting [place]. The patient's primary a caregiver through visiting [place] is Aziza. The patient presently has caregiver Fariha in the home who has been providing diligent care. Medications/Allergies - Medications Home Medications: Ambulatory Orders Medication Instructions Recorded Confirmed Atorvastatin [Lipitor] 40 mg PO DAILY 03/23/17 04/14/20 Acetaminophen [Pain Reliever Adult] 15 ml PO Q8H PRN 01/22/20 04/14/20 Aspirin 81 mg PO DAILY 01/22/20 04/14/20 Levothyroxine Sodium [Synthroid] 0.5 tab PO DAILY 01/22/20 04/14/20 Lidocaine HCl [Aspercreme 1 applic TP DAILY MDD to b/l knees 01/22/20 04/14/20 Lidocaine] Menthol/Zinc Oxide [Calmoseptine 1 applic TP DAILY 01/22/20 04/14/20 Ointment] Tamsulosin HCl [Flomax] 0.4 mg PO QPM 01/22/20 04/14/20 polyethylene glycoL 3350 [Miralax] 17 gm PO DAILY PRN 01/22/20 04/14/20 risperiDONE [RisperDAL] 0.25 mg PO DAILY 02/05/20 04/26/20 Hemp Cream 1,000,000 TP DAILY PRN 02/19/20 risperiDONE [RisperDAL] 0.25 mg PO DAILY PRN 02/19/20 04/14/20 Citalopram [CeleXA] 10 mg PO DAILY 04/26/20 04/26/20 risperiDONE [Risperidone] 0.5 mg PO QPM 04/26/20 04/26/20 - Allergies Allergies/Adverse Reactions: Allergies Allergy/AdvReac Type Severity Reaction Status Date / Time No Known Drug Allergies Allergy Verified 04/14/20 18:22 Review of Systems - Constitutional Constitutional: reports: Fatigue, Other (appx 30lbs while in inpatient rehab, Left MAC 26cm January 2020; Left MAC 03/10/2020 26.5cm). denies: Fever, Poor appetite - Eyes Eyes: reports: Vision loss (left eye) - Ears, Nose & Throat Ears, Nose & Throat: reports: Hearing loss, Hearing aids (does not wear his hearing aids). denies: Dentures, Dry mouth - Cardiovascular Cardiovascular: denies: Palpitations, Edema - Respiratory Respiratory: denies: Cough - Gastrointestinal Gastrointestinal: reports: Good appetite. denies: Constipation (bowel movement daily or every other day), Vomiting - Genitourinary Genitourinary: reports: Incontinence. denies: Dysuria - Musculoskeletal Musculoskeletal: reports: Muscle weakness (due to CVA with left sided weakness), Joint pain (controlled with tylenol), Assistive devices, Transfer issues. denies: Joint swelling - Integumentary Integumentary: reports: Dryness - Neurological Neurological: reports: General weakness, Memory problems, Other (noted since yesterday when sitting up in his new tilt in space wheelchair that he is leaning more to his left side) - Psychiatric Psychiatric: reports: Aggitation (controlled), Behavior disturbances - Endocrine Endocrine: reports: Hypothyroidism - Hematologic/Lymphatic Hematologic/Lymph: Other (No recuurent infections) - All Other Systems All Other Systems: reports: Reviewed and negative (Patient is a poor historian due to dementia. Review of systems supplemented patient's significant other.) Physical Exam - Vital Signs Temperature: 36.7 C Pulse Rate: 71 O2 Saturation: 97 (on RA at rest) Blood Pressure: 104/57 (left wrist) - Physical Exam General Appearance: positive: No acute distress, Alert, Other (resting in bed, relaxed) Eyes Bilateral: positive: Normal inspection ENT: positive: No signs of dehydration Neck: positive: Trachea midline, Other (thin) Cardiovascular: positive: Regular rate & rhythm Respiratory: positive: No respiratory distress, Breath sounds nml Abdomen: positive: Non-tender, Soft, Nml bowel sounds Skin: positive: Other (b/l heels intact) Extremities: positive: No pedal edema, Other (+muscular atrophy noted, generalized) Neurologic/Psychiatric: positive: Disoriented to time, Weakness, Other (Calm without aggitation. 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 He is often living in the past per his SO.). negative: Slurred/abnml speech, Depressed mood/affect Palliative Care - POLST Patient has POLST: Yes POLST Status: DNR, Comfort Measures Pain: Comment (controlled OA pain to tylenol) Performance Status: Prior to sustaining a CVA in July 2019 the patient was fully functional and independent in performing his IADLs and ADLs as well as a routine exercise regimen. Since sustaining a CVA he is no longer ambulatory, has left hemiparesis, and is incontinent of bowel and bladder. He has a Ariana lift within the home as well as a hospital bed with specialty mattress. He now has a new tilt in space wheelchair that he has obtained in the last approximately 2 to 3 weeks. He can still feed himself at times however, during the course of a meal it is typically with his significant other or caregivers placing food on utensils and then him feeding himself at times. Meals take an extended period of time as he requires assistance. - Palliative Care Discussion: The patient has demonstrated improvement of his underlying anxiety and agitation since introduction of citalopram. He is no longer having any verbal outburst to caregivers or his significant other, Viviana. The patient remains very articulate regarding past historical events and events related to his own prior experiences and appears to be living in the past. The patient significant other, Viviana continues to have her own health struggles and she has been in contact with the patient's court appointed guardian, Анна in regards to plans if something were to happen to her for the patient. Encourage Viviana to continue to have open communication with Анна to ensure that her wishes are followed through. Viviana continues to remain optimistic. 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 Prior to his CVA he had some underlying dementia that has subsequently worsened since his CVA with some behavioral disturbances. Transitioning from mirtazapine to citalopram has reduced the patient's agitation and anxiety. He is calmer in the evenings with dose increase of Risperdal in the evenings. He continues to demonstrate functional and cognitive decline. The patient's significant other continues to wishes wish to focus on comfort measures and treatment within the home with transition to hospice when medically appropriate. Palliative care to continue provide support for symptom management, care coordination, supportive listening, anticipatory guidance with transition to hospice when medically appropriate. Recommendations/Counseling Done: 1. Depression. Improved. Has tolerated adjustment from mirtazapine to citalopram 10 mg daily. No evidence of depressive symptoms and underlying agitation and anxiety due to dementia with behavioral disturbances has also greatly improved since transition. Continue to monitor. Obtain MAC at next visit for monitoring. 2. Dementia with behavioral disturbances. Factorial due to underlying cognitive deficits prior to sustaining a CVA in July 2019. Has tolerated transition to citalopram 10 mg daily and given positive benefit in the patient's underlying anxiety and agitation will continue at the present dose. Continue risperidone 0.25mg in the AM and 0.5mg in the evening. Patient significant other, Viviana recognizes that is is a chronic, progressive disease. Given the patient's advanced age and chronic comorbidities a gradual decline is expected. 3.Osteoarthritis, multiple joints. Controlled with administration of acetaminophen liquid 500mg up to TID if needed not to exceed 3gram total daily from all sources. The patient's significant other is hesitant for any stronger oral medications such as opioids as the patient is presently comfortable. Introduced that in the future we may initiate salonpas patch (over the counter) or voltaren gel to affected joints. Reviewed purpose of voltaren gel and risk of GI bleeding is minimal as very little is absorbed systemically. The patient's significant other is open to these medications if needed in the future and will discuss with [employer]GER prior to moving forward to new medication regimen. 4. CVA with residual weakness. Sustained in July 2019. Chronic. Progressive. Supportive care. Continue secondary preventive measures for stroke and optimizing blood pressure control, aspirin and statin therapy. Requires 24-hour supervision within the home. Fall precautions. 5. Caregiver burden. Continue to provide support for the patient significant other, Viviana has a cyst been a difficult adjustment for her with continued caregivers 24/ within the home as well as her own underlying health problems. She remains optimistic that there will be an answer for her own medical problems. She is working with the patient's court appointed guardian closely and they have been building a rapport. Recommended that Viviana provide her son's contact information to directly to her close friend that checks on her and the patient on an almost daily basis as a precaution as Viviana has no local family in the area. 6. Advanced care planning. Patient has POLST in place as DN AR with comfort measures. Will need to read complete POLST in the future with patient significant other in car court appointed guardian, Анна Martin to complete the back section of the form. The patient significant other, Viviana is working with a court appointed guardian, Анна to ensure that the patient is well cared for and wishes her follow through upon. The patient's significant other has previously expressed that if something were to happen to her she would want the patient to be placed in a facility and she has relayed this to the court appointed guardian. The goal is to remain focused on comfort measures within the home and transfer to the hospital for acute trauma only and when deemed appropriate to transition to hospice services within the home setting. Time Spent: Total time spent 60 minutes with greater than 50% of this spent in counseling an d coordination of care with patient's significant other Viviana; supportive listening to Viviana regarding caregiver burden; examination of patient; review of symptom management and anticipatory guidance. Disclaimer: The chart note was formulated using voice recognition technology and unfortunately sound alike errors may occur.
== END 2020-05-13 14:56 | disposition home or self-care (01) ==
LOC: PC 14:55
PROVIDERS: ATTEND Nurse Practitioner Family
DX: Z51.5 Encounter for palliative care (principal); F32.9 Major depressive disorder, single episode, unspecified; F03.91 Unspecified dementia, unspecified severity, with behavioral disturbance; M89.49 Other hypertrophic osteoarthropathy, multiple sites; I69.354 Hemiplegia and hemiparesis following cerebral infarction affecting left non-dominant side; I69.398 Other sequelae of cerebral infarction; R32 Unspecified urinary incontinence; R15.9 Full incontinence of feces; Z66 Do not resuscitate
CPT/HCPCS: 99350

== ENCOUNTER 2020-05-26 12:00 | Outpatient (CLI) | payer MEDICARE, OTHER | END 2020-05-26 12:01 | disposition EMS.NT | LOC: EMS 12:00 | DX: Z03.89 Encounter for observation for other suspected diseases and conditions ruled out (principal) ==

== ENCOUNTER 2020-06-07 14:40 | Outpatient (CLI) | payer MEDICARE, OTHER ==
--- NOTE | 2020-06-07 19:07 | CONSULTATION NOTE ---
Palliative Care Follow Up - Referral Referring Provider: Dr. Reagan Time of Visit: [id number] Referral setting: Home Referral Reason: CVA/dementia/neuropathy - Information Sources Records reviewed: Previous records reviewed History/Review of Systems obtained from: Patient, Family (KEVIN, Viviana), Caregiver (Thelma) Exam limitations: Clinical condition (Cognitive impairment due to dementia) - History of Present Illness Update Brief HPI Update: This is an 85-year-old gentleman who was seen in follow-up today within his home for dementia with behavioral disturbances, residual effects due to CVA, new reports of neuropathic pain and caregiver burden with his significant other, Viviana present and private caregiver Aziza. Both the patient's significant other, Viviana and private caregiver reports that in recent weeks the patient has been reporting that his heels and hands hurt. He is also reporting discomfort with light touch feeling that he is "being poked." Previously he was receiving acetaminophen if he was displaying signs or symptoms of pain but now, he is requesting for acetaminophen due to discomfort. He is also having some increased discomfort with turning. They just obtained a device called "U Jones" that assist with pericare and turning. This has been quite effective. In the last several days private caregivers reporting increased nasal congestion, crusting of the eyes, and some. Portable puffiness that has decreased today. They have not provided any antihistamine dosing as needed. The patient himself denies a history of seasonal allergies. Patient significant other is also noting that he is displaying more fidgeting behaviors with his blanket as well as propping his head and hair. He is also having a decreased oral intake at dinner having approximately 50% reduction with his mealtime. There has been some noted visible weight loss per the patient's significant other report. He is also not getting out of bed as frequently in the last few days opting to stay in bed. He is having difficulty staying asleep overnight and is now on discharge taking as many naps during the day. He continues to have 24/7 caregiving support. The patient is seen in the living room in his tilt in space wheelchair fidgeting with his blanket. Visibly thin with muscle atrophy. He is engaged and talkative and perseverating about obtaining Covid19 vaccine. 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 Social History - Living Situation Living arrangement: At home Living Situation: With spouse/s.o., With caregiver(s) Support System: Patient has been twice. He has a significant other, Viviana have been together for approximately 27 years. They relocated to [facility] in 1998. 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 He also served in [employer]. He is a graduate of the [employer] in [place] in 1959. The patient has a great Interest in history and continues to recall historical events in great detail. He has 06/11 caregiving support from visiting [place] with a primary caregiver, Aziza who was there approximately 5 days/week. Medications/Allergies - Medications Home Medications: Ambulatory Orders Medication Instructions Recorded Confirmed Atorvastatin [Lipitor] 40 mg PO DAILY 03/23/17 04/14/20 Acetaminophen [Pain Reliever Adult] 15 ml PO Q8H PRN 01/22/20 04/14/20 Aspirin 81 mg PO DAILY 01/22/20 04/14/20 Levothyroxine Sodium [Synthroid] 0.5 tab PO DAILY 01/22/20 04/14/20 Lidocaine HCl [Aspercreme 1 applic TP DAILY MDD to b/l knees 01/22/20 04/14/20 Lidocaine] Menthol/Zinc Oxide [Calmoseptine 1 applic TP DAILY 01/22/20 04/14/20 Ointment] Tamsulosin HCl [Flomax] 0.4 mg PO QPM 01/22/20 04/14/20 polyethylene glycoL 3350 [Miralax] 17 gm PO DAILY PRN 01/22/20 04/14/20 risperiDONE [RisperDAL] 0.25 mg PO DAILY 02/05/20 04/26/20 Hemp Cream 1,000,000 TP DAILY PRN 02/19/20 risperiDONE [RisperDAL] 0.25 mg PO DAILY PRN 02/19/20 04/14/20 Citalopram [CeleXA] 10 mg PO DAILY 04/26/20 04/26/20 risperiDONE [Risperidone] 0.5 mg PO QPM 04/26/20 04/26/20 Gabapentin [Neurontin] 125 mg PO QPM MDD x3 days then 06/08/20 06/08/20 increase 250mg - Allergies Allergies/Adverse Reactions: Allergies Allergy/AdvReac Type Severity Reaction Status Date / Time No Known Drug Allergies Allergy Verified 06/08/20 09:21 Review of Systems - Constitutional Constitutional: reports: Poor appetite (decreased consumption at dinner), Other (appx 30lbs while in inpatient rehab, Left MAC 26cm January 2020; Left MAC 03/10/2020 26.5cm with visible muscular atrophy). denies: Fever - Eyes Eyes: reports: Vision loss (left eye) - Ears, Nose & Throat Ears, Nose & Throat: reports: Hearing loss, Hearing aids (does not wear his hearing aids), Nasal congestion, Other (see HPI for additional details). denies: Dentures, Sore throat - Cardiovascular Cardiovascular: denies: Chest pain, Edema - Respiratory Respiratory: denies: Wheezing, SOB at rest - Gastrointestinal Gastrointestinal: reports: Good appetite. denies: Constipation (bowel movement daily or every other day managed with senna and miralax), Vomiting - Genitourinary Genitourinary: reports: Incontinence. denies: Dysuria - Musculoskeletal Musculoskeletal: reports: Muscle weakness (due to CVA with left sided weakness), Joint pain (using acetaminophen), Assistive devices, Transfer issues. denies: Joint swelling - Integumentary Integumentary: reports: Dryness - Neurological Neurological: reports: General weakness, Memory problems, Other (pain in hands and heels reported with sensativity to touch, see HPI) - Psychiatric Psychiatric: reports: Aggitation (controlled), Behavior disturbances - Endocrine Endocrine: reports: Hypothyroidism - Hematologic/Lymphatic Hematologic/Lymph: reports: Other (No recuurent infections) - All Other Systems All Other Systems: reports: Reviewed and negative (Patient is a poor historian due to dementia. Review of systems supplemented patient's significant other and caregiver, Aziza.) Physical Exam - Vital Signs Temperature: 36.6 C Pulse Rate: 55 O2 Saturation: 97 (on RA) Blood Pressure: 145/86 (left arm) - Physical Exam General Appearance: positive: No acute distress, Alert, Cachetic, Other (sitting up in tilt in space wheelchair fidgeting with his blanket) Eyes Bilateral: positive: Normal inspection, PERRL, Conjunctivae nml, Other (Trace nasal congestion left nare, no cobblestoning noted on assessment to oropharynx). negative: No lid inflammation ENT: positive: No signs of dehydration Neck: positive: Trachea midline, Other (thin) Cardiovascular: positive: Regular rate & rhythm Respiratory: positive: No respiratory distress, Breath sounds nml. negative: Rales Abdomen: positive: Non-tender, Soft, Nml bowel sounds Skin: positive: Dryness Extremities: positive: No pedal edema, Other (+muscular atrophy noted, generalized; +scars to b/l knees) Neurologic/Psychiatric: positive: Disoriented to time, Weakness, Other (Calm without aggitation.). negative: Slurred/abnml speech, Depressed mood/affect Palliative Care - POLST Patient has POLST: Yes POLST Status: DNR Pain: Comment (patient denies c/o pain but SO and caregiver report patient stating he has pain in heels and hands, see HPI) Tiredness/Fatigue: None Drowsiness/Sedation: None, Comment (Decreased sleep overnight) Anorexia: Mild (1-3) Dyspnea: None Depression: None (controlled) Feelings of wellbeing/Perceived Quality of Life: Good Sleep: Sleeps poorly Constipation: Yes, Managed - Palliative Care Discussion: Per the patient significant other and caregiver reports he is having evidence of neuropathic pain in [place] that would benefit from introduction of a low dose of gabapentin which can aid also for underlying anxiety and insomnia. Patient significant other in agreement for trial of a low-dose gabapentin. The patient has evidence of underlying osteoarthritic arthritis and is presently receiving routine acetaminophen for management. Introduced today with the patient's significant other the use of opioid therapy as a tool for further management for the patient's symptoms to work congruently with acetaminophen however, the patient significant other has some reservations regarding moving forward with opioid therapy as she associates opioid therapy with end-of-life symptom management. Provided reassurance and normalization of feelings. As the patient is demonstrating more increased pain due to neuropathic symptoms it is appropriate to initially start with gabapentin as a trial. The patient significant other, Viviana continues to have her own health struggles and she continues to work with the patient's court appointed guardian, Анна. The patient's significant other had a recent hospitalization the end of April which prompted a visit and support from her son, Wai from out of state. Patient significant other continues to express grief and loss regarding the patient and her his previous relationship and the patient's functional status. Provided safe space for the patient significant other to express her fears and loss. Impression and Recommendations - Palliative Care Impression: This is an 85-year-old gentleman who had the misfortune of sustaining an ischemic right MCA stroke that has led to functional decline and residual left hemiparesis. To his CVA he had underlying dementia that has subsequently worsened since CVA with behavioral disturbances. He is now having some underlying insomnia that may be due to anhedonia and underlying neuropathy and will initiate gabapentin at a low dose at bedtime for a trial and gradually increase as tolerated. The patient significant other continues to wish to focus on comfort measures and treatment within the home. Palliative care to continue provide support for symptom management, care coordination, through supportive listening for the patient's significant other, anticipatory guidance with transition to hospice when medically appropriate. Recommendations/Counseling Done: 1. Allodynia with underlying neuropathy. History of CVA 2019. Underlying neuropathy may be contributing to the patient's underlying insomnia. As the patient has difficulty with swallowing pills will initiate gabapentin 250 mg per 5 mL administer 125 mg (2.5ml) by mouth nightly x 3 nights and then increase to 250mg (5ml) by mouth nightly for neuropathic pain. Reviewed purpose, dose and side effects specifically sedation with the patient significant other with understanding verbalized. Wish to proceed with liquid medication for ease of administration versus capsules. Discussed would expect to have gradual increase of frequency of dosing to twice daily to 3 times daily dosing in the future based on the patient's tolerance and comfort weighing benefits versus burdens. Continue to monitor and adjust appropriately. 2. Constipation. Overall appears to be controlled. Reviewed with patient's private caregiver and significant other the use of senna for stimulation and "push" and MiraLAX for "mush". Given past history of diarrhea with defecation with 17 g dose of MiraLAX recommended half of the dose and to dissolve in 46 ounces of liquid. Understanding verbalized with titration of bowel regimen upon review. 3. Insomnia. Please see Dx allodynia and underlying neuropathy for further details. If gabapentin effective for neuropathy by not controlling insomnia then introduced with patient's Viviana BROWN today would consider low dose trazadone for management. Continue to to monitor. 4. Depression. Improved and appears to be stable. Continue citalopram 10 mg daily. No evidence of underlying agitation or anxiety at the present time. Continue to monitor. Rx for [facility]opram sent [facility] per significant other's request. 5. Osteoarthritis, multiple joints. Continue acetaminophen liquid 500 mg up to 3 times daily daily if needed not to exceed 3 g total daily from all sources. Introduced the need in the future potentially of opioids to keep the patient comfortable. Patient significant other has some reservations regarding opioid therapy and at the present time wishes to see if pain will be controlled with introduction of gabapentin. Attempted to reassure regarding opioid administration for comfort and not associate opioid therapy with end of life and introduced use of immediate release opioid therapy such as morphine concentrate or low-dose oxycodone for ease of administration. We will continue to reassess and monitor. BRAN MIXER will continue to ask floor reservations with the patient significant other and optimize the patient's comfort. 6. Protein calorie malnutrition. No evidence of dysphagia during meals. Left MAC decreased to 26 cm today down from 26.5 cm in February 2020. Evidence of muscle atrophy due to history of CVA with residual weakness. Continue to offer meals that the patient finds enjoyable. Continue to monitor trend of left MAC moving forward. 7. Caregiver burden. Continue to provide support for the patient significant other, Viviana as this has been a difficult adjustment for her with continued caregivers / within her home as well as her own under lying health concerns. Viviana has support from her son, Wai who resides in [place] as well as the patient's court appointed guardian who she continues to build rapport with. Provided reassurance regarding grief and loss. Supportive listening provided. 8. Allergic rhinitis. Evidence of some nasal congestion in the setting of environmental changes with increased blooms outside. Initiate Claritin 5 mg per 5 mL take 5 mL daily x7 days for nondrowsy antihistamine with Rx sent to [facility]. If noted increase ocular puffiness may apply cool compress up to 3 times daily for comfort and support.
== END 2020-06-07 14:41 | disposition home or self-care (01) ==
LOC: PC 14:40
PROVIDERS: ATTEND Nurse Practitioner Family
DX: Z51.5 Encounter for palliative care (principal); M19.90 Unspecified osteoarthritis, unspecified site; I69.954 Hemiplegia and hemiparesis following unspecified cerebrovascular disease affecting left non-dominant side; F03.91 Unspecified dementia, unspecified severity, with behavioral disturbance; G62.9 Polyneuropathy, unspecified; G47.00 Insomnia, unspecified; K59.00 Constipation, unspecified; F32.9 Major depressive disorder, single episode, unspecified; E46 Unspecified protein-calorie malnutrition; J30.9 Allergic rhinitis, unspecified; N40.1 Benign prostatic hyperplasia with lower urinary tract symptoms; R53.2 Functional quadriplegia; E78.5 Hyperlipidemia, unspecified; H54.7 Unspecified visual loss; H91.90 Unspecified hearing loss, unspecified ear; E03.9 Hypothyroidism, unspecified; Z66 Do not resuscitate
CPT/HCPCS: 99350

== ENCOUNTER 2020-06-21 14:41 | Outpatient (CLI) | payer MEDICARE, OTHER ==
--- NOTE | 2020-06-21 17:58 | CONSULTATION NOTE ---
Palliative Care Follow Up - Referral Referring Provider: Dr. Italo Reagan Time of Visit: [id number] Referral setting: Home Referral Reason: Consipation/CVA/Neuropathy - Information Sources Records reviewed: Previous records reviewed History/Review of Systems obtained from: Patient, Family (KEVIN, Viviana), Caregiver (Thelma) Exam limitations: Clinical condition (Cognitive impairment due to dementia) - History of Present Illness Update Brief HPI Update: This is an 85-year-old man who was seen in follow-up today within his home for dementia with behavioral disturbances, residual effects due to CVA, constipation and neuropathic pain with his significant other, Viviana present and private caregiver, Aziza. On last evaluation the patient had been in requesting his acetaminophen routinely due to discomfort. He was describing a pain and burning sensation to his heels and his hands feeling like he was being poked. He was initiated on an gabapentin 250 mg / 5 mL with titrating up to 250 mg in the evening. This has been effective and he is no longer receiving acetaminophen routinely but intermittently as his pain is presently controlled. He continues to be fidgety more specifically with his hat on his head. In the last several days after he had a haircut he developed a rash at the base of his neck into his hairline. No discharge nor lesions. Caregivers initially thought this may be due to his Selsun Blue shampoo and this was transitioned to a new brand shampoo with aloe vera. The rash has subsequently faded overall but continues to remain locally. Last week the patient had an acute episode of constipation as it is difficult for him to transfer to a bedside commode and also difficult for him to defecate while in a prone position in bed. Made recommendation of Dulcolax suppository but before this could be administered the patient was able to defecate. However, Dulcolax suppositories are now within the home. Upon review with the patient's significant other, Viviana their main primary caregiver is not administering MiraLAX routinely as previously recommended. He was last admin istered MiraLAX on when he was able to defecate. The patient is getting out of bed more regularly and staying up during the day. He requires frequent repositioning due to bony prominences. There is no evidence of skin breakdown. The patient is seen in the living room in his tilt in space wheelchair visiting with his hat. Visibly food with muscle atrophy. No evidence of acute distress. 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 Social History - Living Situation Living arrangement: At home Living Situation: With spouse/s.o., With caregiver(s) Support System: Patient has been twice. He has a significant other, Viviana have been together for approximately 27 years. They relocated to [facility] in 1998. 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 He also served in [employer]. He is a graduate of the [employer] in [place] in 1959. He has 06/11 caregiving support from [employer] with a primary caregiver, Thelma who was there approximately 5 days/week. They trained a new caregiver, Randi alan who starts tomorrow from [employer]. Medications/Allergies - Medications Home Medications: Ambulatory Orders Medication Instructions Recorded Confirmed Atorvastatin [Lipitor] 40 mg PO DAILY 03/23/17 04/14/20 Acetaminophen [Pain Reliever Adult] 15 ml PO Q8H PRN 01/22/20 04/14/20 Aspirin 81 mg PO DAILY 01/22/20 04/14/20 Levothyroxine Sodium [Synthroid] 0.5 tab PO DAILY 01/22/20 04/14/20 Lidocaine HCl [Aspercreme 1 applic TP DAILY MDD to b/l knees 01/22/20 04/14/20 Lidocaine] Menthol/Zinc Oxide [Calmoseptine 1 applic TP DAILY 01/22/20 04/14/20 Ointment] Tamsulosin HCl [Flomax] 0.4 mg PO QPM 01/22/20 04/14/20 polyethylene glycoL 3350 [Miralax] 8.5 gm PO DAILY PRN 01/22/20 04/14/20 risperiDONE [RisperDAL] 0.25 mg PO DAILY 02/05/20 04/26/20 Hemp Cream 1,000,000 TP DAILY PRN 02/19/20 risperiDONE [RisperDAL] 0.25 mg PO DAILY PRN 02/19/20 04/14/20 Citalopram [CeleXA] 10 mg PO DAILY 04/26/20 04/26/20 risperiDONE [Risperidone] 0.5 mg PO QPM 04/26/20 04/26/20 Gabapentin [Neurontin] 250 mg PO QPM MDD x3 days then 06/08/20 06/08/20 increase 250mg Gabapentin [Neurontin] 125 mg PO .DAILY IN AM 06/21/20 06/21/20 - Allergies Allergies/Adverse Reactions: Allergies Allergy/AdvReac Type Severity Reaction Status Date / Time No Known Drug Allergies Allergy Verified 06/21/20 18:11 Review of Systems - Constitutional Constitutional: reports: Diaphoresis (Had episode on Sunday that he had perspired through his bedding with a mildly elevated temperature 99F that has steadily decreased), Other (appx 30lbs while in inpatient rehab, Left MAC 26cm January 2020; Left MAC 03/10/2020 26.5cm with visible muscular atrophy; Left MAC 27cm today). denies: Fever - Eyes Eyes: reports: Vision loss (left eye) - Ears, Nose & Throat Ears, Nose & Throat: reports: Hearing loss, Hearing aids (does not wear his hearing aids). denies: Nasal congestion - Cardiovascular Cardiovascular: denies: Chest pain, Edema - Respiratory Respiratory: denies: Cough - Gastrointestinal Gastrointestinal: reports: Constipation (see HPI), Good appetite (but declined from previous baseline). denies: Abdominal pain, Nausea, Vomiting - Genitourinary Genitourinary: reports: Incontinence. denies: Dysuria - Musculoskeletal Musculoskeletal: reports: Muscle weakness (due to CVA with left sided weakness), Joint pain (improved since initiating gabapentin), Assistive devices, Transfer issues. denies: Joint swelling - Integumentary Integumentary: reports: Rash (base of neck, see HPI) - Neurological Neurological: reports: General weakness, Memory problems, Other (pain in hands and heels reported with sensativity to touch improved, see HPI) - Psychiatric Psychiatric: reports: Aggitation (controlled), Behavior disturbances - Endocrine Endocrine: reports: Hypothyroidism - Hematologic/Lymphatic Hematologic/Lymph: reports: Other (No recuurent infections) - All Other Systems All Other Systems: reports: Reviewed and negative (Patient is a poor historian due to dementia. Review of systems supplemented patient's significant other and caregiver, Thelma.) Physical Exam - Vital Signs Temperature: 36.7 C Pulse Rate: 81 O2 Saturation: 95 (on RA) Blood Pressure: 136/55 (left wrist) - Physical Exam General Appearance: positive: No acute distress, Alert, Cachetic, Other (sitting up in tilt in space wheelchair fidgeting with his hat) Eyes Bilateral: positive: Normal inspection ENT: positive: No signs of dehydration Neck: positive: Trachea midline, Other (thin) Cardiovascular: positive: Regular rate & rhythm, No murmur Respiratory: positive: No respiratory distress, Breath sounds nml Abdomen: positive: Non-tender, Soft, Nml bowel sounds. negative: Distended Skin: positive: Rash (flat, irregular light erythematous rash to base of neck into hairline that is fading that is c/w contact dermatitis; no flaking noted to scalp) Extremities: positive: No pedal edema, Other (+muscular atrophy noted, generalized; +scars to b/l knees) Neurologic/Psychiatric: positive: Mood/affect nml, Disoriented to time, Weakness, Other (Calm without aggitation.). negative: Slurred/abnml speech (some word finding difficulties intermittently) Palliative Care - POLST Patient has POLST: Yes POLST Status: DNR, Comfort Measures Pain: Pain improved (with initiation of gabapentin nightly) Constipation: Intermittent constipation (see hPI) - Palliative Care Discussion: The patient has had improvement with his neuropathic pain to his distal extremities and both the hands and feet with introduction of low-dose gabapentin which can also aid with underlying anxiety and insomnia. 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 The patient significant other, Viviana, continues to have her own health struggles and she continues to work with the patient's court appointed guardian, Анна. Viviana is [id number] is in town later this week and is going to assist her with her own medical appointments. Viviana continues to express difficulty in having her own voice heard with caregivers who have their own way of performing tasks and acting in the patient's best interest. Supportive listening provided to the patient significant other, Viviana and normalizing her feelings of frustration and lack of overall control regarding her present circumstances. Impression and Recommendations - Palliative Care Impression: This is an 85-year-old man who has had the misfortune of sustaining an ischemic right MCA stroke that has led to functional decline and residual left hemiparesis. His underlying dementia subsequently worsened since sustaining a CVA with behavioral disturbances. His neuropathy and osteoarthritic pain has improved with initiation of gabapentin and would further benefit from mild dose increase of gabapentin initiated in the morning. We will continue to gradually increase gabapentin as tolerated based on the patient's response. Reviewed bowel regimen with both the patient significant other and caregiverAziza today to optimize the patient's comfort. Palliative care to continue provide support for symptom management, care coordination supportive listening to the patient's significant other, anticipatory guidance with transition to hospice when medically appropriate. Recommendations/Counseling Done: 1. Neuropathic pain to distal extremities. History of CVA in 2019.As the patient has difficulty swallowing pills gabapentin 250 mg per 5 mL was initiated at 250 mg by mouth nightly for neuropathic pain with positive benefit. We will continue to and 50 mg of gabapentin in the evening. Initiate gabapentin 125 mg in the morning. Reviewed with the patient's significant other will continue to gradually increase the frequency of dosing based on the patient's tolerance and comfort weighing benefits versus burdens. Continue to monitor and adjust accordingly. 2. Constipation. Reviewed with the patient's private caregiver the need for routine bowel regimen given the patient's in no bili contributing to his constipation. Given past history of diarrhea with 17 g dose of MiraLAX advised to utilize 8.5 g of MiraLAX (half a dose (dissolved in 4 to 6 ounces of liquid on a routine basis. We can titrate from there. May need use of Dulcolax suppository in the future due to poor rectal tone if this is present due to his history of CVA. 3. Rash to base of neck that appears to be due to contact dermatitis. Developed after hair cut within the home. Would continue with present shampoo that has aloe vera in it. Would initiate hydrocortisone 1% cream applied to the base of the neck twice daily x7 days for the rash. Continue to monitor the site. 4. Protein calorie malnutrition. No evidence of dysphagia reported during meals. Left MAC improved to 27 cm obtained today. Does have evidence of muscle atrophy due to history of CVA with residual weakness. Continue to offer foods the patient finds enjoyable. 5. Caregiver burden. Continue to provide support for the patient significant other, Viviana has this is been a difficult transition for her having continued caregivers within her home as well as her own underlying health concerns. Viviana has support of her family as well as the patient's court appointed guardian with whom she continues to build rapport with. Provided support and reassurance regarding her emotions as documented in palliative care discussion. Supportive listening provided. 6. Advanced care planning. Patient has POLST in place as DN AR. The patient significant other wishes to focus on comfort measures and quality of life with in the patient's home environment. Total time spent 50 minutes with greater than 50% of this spent in counseling and coordination of care with patient, SO Viviana and caregiver; examination of patient; supportive listening to SO; review of pain and symptom management and anticipatory guidance. Disclaimer: The chart note was formulated using voice recognition technology and unfortunately sound alike errors may occur.
== END 2020-06-21 14:42 | disposition home or self-care (01) ==
LOC: PC 14:41
PROVIDERS: ATTEND Nurse Practitioner Family
DX: Z51.5 Encounter for palliative care (principal); G62.9 Polyneuropathy, unspecified; K59.00 Constipation, unspecified; R21 Rash and other nonspecific skin eruption; E46 Unspecified protein-calorie malnutrition; I69.354 Hemiplegia and hemiparesis following cerebral infarction affecting left non-dominant side; F03.91 Unspecified dementia, unspecified severity, with behavioral disturbance; Z66 Do not resuscitate
CPT/HCPCS: 99349

== ENCOUNTER 2020-07-06 13:30 | Outpatient (CLI) | payer MEDICARE, OTHER ==
--- NOTE | 2020-07-06 19:38 | CONSULTATION NOTE ---
Palliative Care Follow Up - Referral Referring Provider: Dr. Reagan Time of Visit: [id number] Referral setting: Home Referral Reason: Constipation/Change in condition/CVA - Information Sources Records reviewed: Previous records reviewed History/Review of Systems obtained from: Patient, Family (KEVIN, Viviana), Caregiver (Shannon) - History of Present Illness Update Brief HPI Update: This is an 85-year-old man who was seen for acute evaluation today due to concerns by his significant other due to decline due to CVA, dementia with behavioral disturbances, neuropathic pain with his significant other, Viviana present and private caregiver, Sukhwinder at present. On last evaluation, the patient's gabapentin was increased to twice daily dosing with 125 mg in the morning and 250 mg in the evening for pain with initial positive response. The patient significant other and caregiver are reporting that the patient is reporting increased sensitivity to touch especially to his feet. He does not want to have his feet covered at any time as he reports increased pain with any covering. He does continue with acetaminophen as needed. Significant other has noted further decline in his overall function. He is staying in bed more as it is difficult to get him up. He is still having a adequate appetite but is no longer able to to feed himself and is staying in bed more often for meals. No evidence of dysphagia. This caregiver also reports that there is a spot on his scrotum that will develop with no opening but irritation that responds well to application of Neosporin that clears up. However, once Neosporin is no longer applied it reappears. Typically pending sized area. He continues to have a rash at the base of his neck along his hairline. Application of hydrocortisone cream has been applied for a week with minor improvements however, it remains. The patient denies pruritus to the site. He recently had another haircut which previously after his last haircut the rash developed. On his left chest wall, along the anterior axillary line. he developed a blister with no history of trauma. The blister has almost resolved and did not open. He continues to have episodes of constipation with positive response to MiraLAX administration. 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 The patient is seen resting in bed no evidence of acute distress. 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 Social History - Living Situation Living arrangement: At home Living Situation: With spouse/s.o., With caregiver(s) Support System: Patient has been twice. He has a significant other, Viviana have been together for approximately 27 years. They relocated to [facility] in 1998. 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 He also served in [employer] He is a graduate of the [employer] in [place] in 1959. He has 06/11 caregiving support from [facility] with a primary caregiver, Thelma who was there approximately 5 days/week. Aziza does display some lack of boundaries in regards to her interaction with the patient and his significant other that has been addressed with the center human resources manager of [facility] [facility] per Viviana's report. Patient significant other, Viviana has a good rapport with Sukhwinder ricketts who is providing shifts that are not covered by Thelma Medications/Allergies - Medications Home Medications: Ambulatory Orders Medication Instructions Recorded Confirmed Atorvastatin [Lipitor] 40 mg PO DAILY 03/23/17 07/07/20 Acetaminophen [Pain Reliever Adult] 15 ml PO Q8H PRN 01/22/20 07/07/20 Aspirin 81 mg PO DAILY 01/22/20 07/07/20 Levothyroxine Sodium [Synthroid] 0.5 tab PO DAILY 01/22/20 07/07/20 Lidocaine HCl [Aspercreme 1 applic TP DAILY MDD to b/l knees 01/22/20 07/07/20 Lidocaine] Menthol/Zinc Oxide [Calmoseptine 1 applic TP DAILY 01/22/20 04/14/20 Ointment] Tamsulosin HCl [Flomax] 0.4 mg PO QPM 01/22/20 07/07/20 polyethylene glycoL 3350 [Miralax] 8.5 gm PO DAILY PRN 01/22/20 07/07/20 risperiDONE [RisperDAL] 0.25 mg PO DAILY 02/05/20 07/07/20 Hemp Cream 1,000,000 TP DAILY PRN 02/19/20 risperiDONE [RisperDAL] 0.25 mg PO DAILY PRN 02/19/20 07/07/20 Citalopram [CeleXA] 10 mg PO DAILY 04/26/20 07/07/20 risperiDONE [Risperidone] 0.5 mg PO QPM 04/26/20 07/07/20 Gabapentin [Neurontin] 250 mg PO TID 06/21/20 07/07/20 - Allergies Allergies/Adverse Reactions: Allergies Allergy/AdvReac Type Severity Reaction Status Date / Time No Known Drug Allergies Allergy Verified 06/21/20 18:11 Review of Systems - Constitutional Constitutional: reports: Fatigue, Other (appx 30lbs while in inpatient rehab, Left MAC 26cm January 2020; Left MAC 03/10/2020 26.5cm with visible muscular atrophy; Left MAC 26.5cm today). denies: Fever - Eyes Eyes: reports: Vision loss (left eye) - Ears, Nose & Throat Ears, Nose & Throat: reports: Hearing loss, Hearing aids (does not wear his hearing aids). denies: Nasal congestion - Cardiovascular Cardiovascular: denies: Edema - Respiratory Respiratory: denies: Cough - Gastrointestinal Gastrointestinal: reports: Constipation (intermittent), Good appetite. denies: Abdominal pain, Nausea, Vomiting - Genitourinary Genitourinary: reports: Incontinence. denies: Dysuria - Musculoskeletal Musculoskeletal: reports: Muscle weakness (due to CVA with left sided weakness), Joint pain (improved since initiating gabapentin), Assistive devices, Transfer issues. denies: Joint swelling - Integumentary Integumentary: reports: Rash (base of neck, see HPI), Pigment changes (right scrotum, see HPI) - Neurological Neurological: reports: General weakness, Memory problems, Other (pain in hands and heels reported with sensativity to touch improved, see HPI) - Psychiatric Psychiatric: reports: Aggitation (controlled), Behavior disturbances - Endocrine Endocrine: reports: Hypothyroidism - Hematologic/Lymphatic Hematologic/Lymph: reports: Other (No recuurent infections) - All Other Systems All Other Systems: reports: Reviewed and negative (Patient is a poor historian due to dementia. Review of systems supplemented patient's significant other and caregiver, Shannon.) Physical Exam - Vital Signs Temperature: 36.6 C Pulse Rate: 65 O2 Saturation: 97 (on RA) Blood Pressure: 122/63 (left wrist) - Physical Exam General Appearance: positive: No acute distress, Alert, Cachetic, Other (resting in hospital bed) Eyes Bilateral: positive: Normal inspection ENT: positive: No signs of dehydration Neck: positive: Trachea midline Cardiovascular: positive: Regular rate & rhythm, No murmur Respiratory: positive: No respiratory distress, Breath sounds nml, Diminished in bases Abdomen: positive: Non-tender, Soft, Nml bowel sounds Skin: positive: Rash (flat, irregular light erythematous rash to base of neck into hairline ? seborrheic dermatitis as lack of response to hydrocoritsone cream; no visible lesion to right scrotum at this time), Other (+thick nailbed to right great toenail consistent with onychomycosis; +right great toenail evidence of beginning to grow inward) Extremities: positive: No pedal edema, Other (+muscular atrophy noted, generalized; +scars to b/l knees) Neurologic/Psychiatric: positive: Mood/affect nml, Disoriented to time, Weakness, Other (Calm without aggitation) Palliative Care - POLST Patient has POLST: Yes POLST Status: DNR Pain: Pain worsening (see HPI) Performance Status: Patient remains confined to his hospital bed for his tilt in space wheelchair. He is nonambulatory. He requires the use of a Ariana lift for transfers. Prior to sustaining a CVA in July 2019 the patient was fully functional and independent performing his IADLs and ADLs as well as a routine exercise program. He is incontinent of bowel and bladder. He continues with left hemiparesis. He is now requiring assistance for feeding. No evidence of dysphagia. - Palliative Care Discussion: The patient is having increased neuropathic pain specifically to his distal lower extremities with sensitivity to light touch and would benefit from an increase of his gabapentin dosage for improvement of symptoms. The patient continues to demonstrate a gradual, functional decline. He is now no longer able to feed himself. Lengthy discussion had with the patient's caregiver and significant other Viviana in regards to deficits that can occur after sustaining a CVA and in light of the patient's underlying history of dementia and potential progressive course. Gently introduced the role of hospice and its services. The patient at this time is not quite hospice appropriate but is inching closer and the patient's significant other, Viviana recognizing this and would be open to hospice services when the time was appropriate. The patient continues to have stability regarding his underlying anxiety and agitation. The patient significant other, Viviana continues to have her own health struggles and she is working with her son and [id number] as well as the patient's court appointed guardian to ensure that the patient is cared for. She has a pending surgery for herself. Supportive listening provided to the patient significant other. Impression and Recommendations - Palliative Care Impression: Old man who was had the misfortune of sustaining an ischemic right MCA stroke that has led to functional decline and residual left hemiparesis. His u nderlying dementia subsequently worsened after sustaining a CVA with behavioral disturbances. His neuropathy has reemerged with allodynia to his distal lower extremities and will increase his gabapentin to 250 mg 3 times daily. He continues to have a slow, gradual decline and is demonstrating increased loss in his functional abilities and is inching closer to being hospice appropriate. Palliative care will continue to provide support for symptom management, care coordination, supportive listening, anticipatory guidance with a transition to hospice when medically appropriate. Recommendations/Counseling Done: 1.Neuropathic pain to distal extremities. History of CVA in 2020. Increase gabapentin 250 mg per 5 mL to 250 mg 3 times daily for neuropathic pain and Ca [place]. New Rx for gabapentin 250 mg per 5 mL sent to [facility] pharmacy. We will continue to monitor the patient's tolerance and comfort weighing benefits versus burdens. Continue to monitor and adjust accordingly. 2. Ingrown toenail to right great toe. Discussed use of Dental floss every 2 by the toenail in its growth. Also provided contact information for Maeve KOROMA at [phone] who provides in home toenail services as the patient is unable to leave his home environment. 3. Rash to base of scalp. Questionable seborrheic dermatitis. Discontinue hydrocortisone 1% cream. Initiate ketoconazole foam applied to the affected area of the scalp and massage into the site twice daily for 2 weeks. Continue to monitor. 4. Constipation. Continue use of half a cap of MiraLAX daily. Has Dulcolax suppository available for use in the future due to the patient's poor rectal tone likely from his history of CVA. 5. Urinary incontinence. Recent patient develops a pinpoint lesion to his right scrotum that is likely related to moisture. Will recommend continuation of Neosporin. Would initiate calmoseptine application of pea-sized amount once daily for skin protection from acidity of urine. Continue to monitor. 6. Protein calorie malnutrition. No evidence of dysphagia reported during meals. Left hand MAC 26.5 cm. Does present with muscle atrophy that is generalized due to history of CVA with residual weakness. Continue to offer foods the patient finds enjoyable. Continue to monitor. 7. Advanced care planning. Patient has POLST in place as DN AR. The patient significant other wishes to focus on comfort measures and quality of life within the patient's home environment. Supportive listening provided to the patient significant other and recognizing the patient's continued functional decline and support regarding her own healthcare journey. Gently introduced hospice services as outlined in palliative care discussion. Provided contact information today for [facility] call center for scheduling a Covid19 vaccine for the patient. Total time spent 70 minutes with greater than 50% of the spent in counseling coordination of care with the patient, significant other Viviana, and caregiver; examination of the patient, supportive listening; review of pain and symptom management and anticipatory guidance. Disclaimer: The chart note was formulated using voice recognition technology and unfortunately sound alike errors may occur.
== END 2020-07-06 13:31 | disposition home or self-care (01) ==
LOC: PC 13:30
PROVIDERS: ATTEND Nurse Practitioner Family
DX: Z51.5 Encounter for palliative care (principal); G62.9 Polyneuropathy, unspecified; R20.3 Hyperesthesia; I69.354 Hemiplegia and hemiparesis following cerebral infarction affecting left non-dominant side; I69.398 Other sequelae of cerebral infarction; L60.0 Ingrowing nail; R21 Rash and other nonspecific skin eruption; K59.00 Constipation, unspecified; L98.9 Disorder of the skin and subcutaneous tissue, unspecified; R32 Unspecified urinary incontinence; E46 Unspecified protein-calorie malnutrition; F03.91 Unspecified dementia, unspecified severity, with behavioral disturbance; Z66 Do not resuscitate
CPT/HCPCS: 99350

== ENCOUNTER 2020-07-28 14:05 | Outpatient (CLI) | payer MEDICARE, OTHER ==
--- NOTE | 2020-07-28 18:24 | CONSULTATION NOTE ---
Palliative Care Follow Up - Referral Referring Provider: Dr. Italo Reagan Time of Visit: [id number] Referral setting: Home Referral Reason: Constipation/Dementia/CVA - Information Sources Records reviewed: Previous records reviewed History/Review of Systems obtained from: Patient, Caregiver (Shannon) Exam limitations: Clinical condition - History of Present Illness Update Brief HPI Update: This is an 85-year-old man who was seen in evaluation today for follow-up regarding constipation, residual effects due to CVA, neuropathic pain and dementia with behavioral disturbances with his significant other, Viviana present and private caregiver, Sukhwinder present. The patient has been doing well with his neuropathic pain since introduction of gabapentin. He is presently on 250 mg 3 times daily. Both the patient's primary caregiver who was present today as well as the patient's significant other, Viviana reports that the patient is becoming stiffer with his lower extremities. He continues to maintain his upper body strength and is able to assist with turning however, his becoming increasingly difficult. They are utilizing the [employer] while the patient is in bed however, they expressed concerns when the patient is going to be unable to assist in the future. He last had a bowel movement yesterday in a small amount. Bowel movements are more firm. They are administering 1 cap of MiraLAX daily. The patient is having more difficulty initiating a bowel movement. He likely has some decrease in rectal tone due to his underlying CVA. The patient's private caregiver is unable to administer suppositories per her job description and given the patient is still able to defecate may benefit from further dose titration of his MiraLAX with utilization of laxative the patient has not had a bowel movement in 3 days time. Last week, the patient had a noted reduction in his oral intake and reports of abdominal discomfort. He was initiated on omeprazole 20 mg daily 30 minutes before breakfast. Since initiation of omeprazole the patient has no longer reported any abdominal discomfort to his significant other or his private caregivers. There has been note that the patient is having some evidence of shaking first thing in the morning. No he has no history of diabetes. He typically consumes ice cream before going to bed. The shaking resolves after he is up and consumed his coffee and a meal. No fever or diaphoresis when this is occurring. Patient is seen sitting up in his tilt in space wheelchair with no evidence of acute distress. 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 Social History - Living Situation Living arrangement: At home Living Situation: With spouse/s.o., With caregiver(s) Support System: Patient has been twice. He has a significant other, Viviana have been together for approximately 27 years. They relocated to [facility] in 1998. 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 He also served in [employer]. He is a graduate of the [email or web address] in [place] in 1959. He has 06/11 caregiving support from jg Ramesh with a primary caregiver, Thelma who was there approximately 5 days/week and now has a new caregiver, Sukhwinder, whom has been a good fit for not only the patient but Viviana as well. The patient recently had his COVID-19 vaccine administered in the home through [facility] with [employer] vaccine. Medications/Allergies - Medications Home Medications: Ambulatory Orders Medication Instructions Recorded Confirmed Atorvastatin [Lipitor] 40 mg PO DAILY 03/23/17 07/07/20 Acetaminophen [Pain Reliever Adult] 15 ml PO Q8H PRN 01/22/20 07/07/20 Aspirin 81 mg PO DAILY 01/22/20 07/07/20 Levothyroxine Sodium [Synthroid] 0.5 tab PO DAILY 01/22/20 07/07/20 Lidocaine HCl [Aspercreme 1 applic TP DAILY MDD to b/l knees 01/22/20 07/07/20 Lidocaine] Menthol/Zinc Oxide [Calmoseptine 1 applic TP DAILY 01/22/20 04/14/20 Ointment] Tamsulosin HCl [Flomax] 0.4 mg PO QPM 01/22/20 07/07/20 polyethylene glycoL 3350 [Miralax] 8.5 gm PO DAILY PRN 01/22/20 07/07/20 risperiDONE [RisperDAL] 0.25 mg PO DAILY 02/05/20 07/07/20 Hemp Cream 1,000,000 TP DAILY PRN 02/19/20 risperiDONE [RisperDAL] 0.25 mg PO DAILY PRN 02/19/20 07/07/20 Citalopram [CeleXA] 10 mg PO DAILY 04/26/20 07/07/20 risperiDONE [Risperidone] 0.5 mg PO QPM 04/26/20 07/07/20 Gabapentin [Neurontin] 250 mg PO TID 06/21/20 07/07/20 Magnesium Hydroxide [Milk of 30 ml PO DAILY PRN MDD if no BM in 07/29/20 07/29/20 Magnesia] 3 days Omeprazole Magnesium 20 mg PO DAILY MDD 30 minutes 07/29/20 07/29/20 before breakfast - Allergies Allergies/Adverse Reactions: Allergies Allergy/AdvReac Type Severity Reaction Status Date / Time No Known Drug Allergies Allergy Verified 07/29/20 07:56 Review of Systems - Constitutional Constitutional: reports: Fatigue, Poor appetite (waxing and waning), Other (appx 30lbs while in inpatient rehab, Left MAC 26cm January 2020; Left MAC 03/10/2020 26.5cm with visible muscular atrophy; Left MAC 26.5cm today--stable). denies: Fever - Eyes Eyes: reports: Vision loss (left eye), Other (crusting to eyelids in the mornings that is easily removed with a warm washcloth) - Ears, Nose & Throat Ears, Nose & Throat: reports: Hearing loss, Hearing aids (does not wear his hearing aids). denies: Nasal congestion - Cardiovascular Cardiovascular: denies: Chest pain, Edema - Respiratory Respiratory: denies: Cough - Gastrointestinal Gastrointestinal: reports: Constipation (see HPI), Reflux/heartburn (improved with omeprazole). denies: Abdominal pain, Nausea, Vomiting - Genitourinary Genitourinary: reports: Incontinence. denies: Dysuria - Musculoskeletal Musculoskeletal: reports: Stiffness (increased contractures noted to LE), Muscle weakness (due to CVA with left sided weakness), Joint pain (improved since initiating gabapentin and not asking for tylenol routinely), Assistive devices, Transfer issues. denies: Joint swelling - Integumentary Integumentary: reports: Rash (base of neck-improved) - Neurological Neurological: reports: General weakness, Memory problems, Other (neuropathic pain, improved with gabapentin, see HPI) - Psychiatric Psychiatric: reports: Aggitation (controlled), Behavior disturbances - Endocrine Endocrine: reports: Hypothyroidism - Hematologic/Lymphatic Hematologic/Lymph: reports: Other (No recuurent infections) - All Other Systems All Other Systems: reports: Reviewed and negative (Patient is a poor historian due to dementia. Review of systems supplemented patient's significant other and caregiver, Shannon.) Physical Exam - Vital Signs Temperature: 36.5 C Pulse Rate: 66 O2 Saturation: 96 (on RA) Blood Pressure: 118/60 (left arm) - Physical Exam General Appearance: positive: No acute distress, Alert, Cachetic, Other (OOB in tilt in space wheelchair) Eyes Bilateral: positive: Normal inspection ENT: positive: No signs of dehydration Neck: positive: Trachea midline Cardiovascular: positive: Regular rate & rhythm Respiratory: positive: No respiratory distress, Breath sounds nml, Diminished in bases Abdomen: positive: Non-tender, Soft, Nml bowel sounds. negative: Guarding, Distended Skin: positive: Rash (flat, irregular light erythematous rash to base of neck into hairline ? seborrheic dermatitis that has diminished since last evaluation), Other (b/l heels intact without erythema) Extremities: positive: No pedal edema, Other (+muscular atrophy- generalized; +scars to b/l knees) Neurologic/Psychiatric: positive: Mood/affect nml, Disoriented to time, Weakness, Other (Calm without aggitation) Palliative Care - POLST Patient has POLST: Yes POLST Status: DNR Pain: Pain improved (controlled with gabapentin TID and PRN tylenol) Performance Status: The patient is pending more time in his bed versus his tilt in space wheelchair. He is nonambulatory. He requires the use of a Ariana lift for transfers. Prior to sustaining a CVA in July 2019 the patient was fully functional and independent in performing his IADLs and ADLs as well as a routine exercise program. He is incontinent of bowel and bladder. He has left hemiparesis. Is requiring assistance with feeding. No evidence of dysphagia. No recent falls. Having increased difficulty with assisting and turning in bed. FAS T7C - Palliative Care Discussion: The patient continues to have good days and bad days with a slow, functional decline. At the present time is good days out without outweigh the bad days. Despite his appetite waxing and waning his left arm MAC remains stable at 26.5 cm however, he has noted generalized muscular atrophy throughout and is becoming stiffer due to his inability to ambulate. His agitation is well controlled presently with risk baritone administered routinely with no need for as needed dose risperidone at the present time. His significant other and caregivers have utilized adaptive techniques especially classical music. The patient responds to classical music with a change in his demeanor becoming calmer and then they will note that his foot is tapping in time to the music. We will continue to encourage nonpharmacological interventions such as relaxation techniques, music, and touch for interventions if the patient has underlying anxiety or agitation before trial of as needed risperidone. Impression and Recommendations - Palliative Care Impression: This is an 85-year-old man who had the misfortune of sustaining an ischemic right MCA stroke that has led to functional decline and residual left hemiparesis. His underlying dementia subsequently worsened after sustaining a CVA with behavioral disturbances. His neuropathy is presently controlled with gabapentin 250 mg 3 times daily. He presented with some underlying GERD that has positively responded to initiation of omeprazole first thing in the morning. He continues to display a gradual, functional decline. Palliative care will continue to provide support for symptom management, care coordination, supportive listening, anticipatory guidance with transition to hospice when medically appropriate. Recommendations/Counseling Done: 1. Constipation. Sedentary lifestyle contributing as well as likely poor rectal tone resulting from his history of CVA. Discussed utilizing MiraLAX 1 cap daily and may titrate up to 1 cap twice daily as needed and this was reviewed with the patient's significant other and caregiver. If the patient has not had a bowel movement in 3 days then may utilize a Dulcolax suppository or milk of magnesia (400 mg per 5 mL) 30 mL once for a bowel movement. 2.Neuropathic pain. History of CVA in 2019. Controlled. Continue gabapentin 250 mg 3 times daily. We will continue to monitor the patient's tolerance and comfort weighing benefits versus burdens. Continue to monitor and adjust accordingly. 3. Shakiness. Reported in the mornings. Questionable hypoglycemia based on history, see HPI for further details. Recommend having a protein snack before bed such as cheese, and almond butter, peanut butter etc. Monitor the patient's response in the morning based on administration of protein snack. Goal is comfort. 4. Protein calorie malnutrition. Left arm MAC stable at 26.5 cm. Does present with muscular atrophy that is generalized in the setting of a history of CVA with residual weakness. Continue to offer foods the patient finds enjoyable. Continue to monitor. 5. GERD. Positive response to PPI. At the present time, continue omeprazole 20 mg in the morning 30 minutes before breakfast. May open capsule to administ er. 6. Dementia with behavioral disturbances. Multifactorial due to underlying cognitive deficits prior to sustaining a CVA in July 2019. Continue citalopram 10 mg daily. Continue risperidone 0.25 mg in the morning and 0.5 mg in the evening. Patient continues to have good days and bad days. Continue to expect a gradual decline in the patient's significant other, Viviana recognizes this. On no disease modifying agents. Given the patient's advanced age and chronic comorbidities a gradual decline is expected. Total time spent 60 minutes with greater than 50% of this spent in counseling and coordination of care with patient, Viviana BROWN and caregiver, Shannon; examination of patient; review of medication management; review of pain and symptom management and anticipatory guidance. Disclaimer: The chart note was formulated using voice recognition technology and unfortunately sound alike errors may occur.
== END 2020-07-28 14:06 | disposition home or self-care (01) ==
LOC: PC 14:05
PROVIDERS: ATTEND Nurse Practitioner Family
DX: Z51.5 Encounter for palliative care (principal); I69.354 Hemiplegia and hemiparesis following cerebral infarction affecting left non-dominant side; K59.00 Constipation, unspecified; G62.9 Polyneuropathy, unspecified; R25.1 Tremor, unspecified; E46 Unspecified protein-calorie malnutrition; K21.9 Gastro-esophageal reflux disease without esophagitis; F03.91 Unspecified dementia, unspecified severity, with behavioral disturbance; Z66 Do not resuscitate
CPT/HCPCS: 99350

== ENCOUNTER 2020-08-20 11:10 | Outpatient (CLI) | payer MEDICARE, OTHER ==
--- NOTE | 2020-08-20 14:59 | CONSULTATION NOTE ---
Palliative Care Follow Up - Referral Referring Provider: Dr. Italo Reagan Time of Visit: 5732-2189 Referral setting: Home Referral Reason: Constipation/FTT/CVA/Dementia with behavior - Information Sources Records reviewed: Previous records reviewed History/Review of Systems obtained from: Patient, Caregiver (Aziza) Exam limitations: Clinical condition (Advaced Dementia) - History of Present Illness Update Brief HPI Update: This is an 85-year-old gentleman who is seen in evaluation today within his home for follow-up regarding constipation, residual effects of CVA, neuropathic pain and dementia with behavioral disturbances with his significant other, Viviana present and private caregiver, Aziza present. The patient is having some increased neuropathic pain and is presently prescribed gabapentin 250 mg 3 times daily. He is having increased sensitivity to light touch and when turning. Upon review with the patient's caregiver today it appears that he has been receiving 0.5 mL and therefore 25 mg of gabapentin 3 times daily and therefore not the requested dose and teaching was performed with the patient's private caregiver regarding administration as well as with the patient's significant other, Viviana. Therefore, the patient was not adequately treated for his underlying neuropathy. He is having reported increased discomfort to his joint especially only when turning in bed. He has periodically been requesting for his acetaminophen and would benefit from routine administration. The patient's other private caregiver, Sukhwinder at has been providing toenail care. Had provided [place] for contact however, [place]. The patient does have a recent episode with his left great toenail where there was some discharge that was handled by the caregiver with no evidence of spreading redness, toe being swollen indiciating cellulitis. The patient does have some thickened, rough toenails. Would request that the private caregiver Sukhwinder continue to provide routine nail care as there is not an in-home podiatry service known to this provider. The patient had previously been reporting some abdominal discomfort and was initiated on omeprazole which has subsequently compete completed the course and the patient has not had any further complaints of abdominal discomfort. Given he has no further complaints would not continue omeprazole at this time to reduce pill burden. The patient is having more effective bowel movements with MiraLAX. On days that he has more than 1 bowel movement then the caregivers will hold his MiraLAX and then this may result in some in creased constipation symptoms. The patient significant other, Viviana reports that he is likes regarding foods have changed with preferences. He has been more picky with what he is eating. There have been in a handful of occasions where he will not have breakfast or dinner and if this is the case then Viviana mixes Ensure, ice cream and protein together which the patient will consume. He is typically having about 1 can of Ensure 3 times daily. His left MAC measured today was 26.5 cm which remains at baseline. Patient is seen resting in his hospital bed initially watching an opera play out on the ceiling and his room. No evidence of acute distress. 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 Social History - Living Situation Living arrangement: At home Living Situation: With spouse/s.o., With caregiver(s) Support System: Patient has been twice. He has a significant other, Viviana have been together for approximately 27 years. They relocated to [facility] in 1998. 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 He also served in [employer]. He is a graduate of the [employer] in [place] in 1959. He has 06/11 caregiving support from jg Ramesh with a primary caregiver, Thelma and caregiver, Shannon, whom has been a good fit for not only the patient but Viviana as well. Thelma is 3 days per week and Shannon 4 days per week. The patient's niece, Shaylee has been in contact with the patient's significant other on a monthly basis. The patient recently had old ship mates visit and he did quite well during the visitation. He has been enjoying the projector that has been placed in the common area for him to watch operas. Medications/Allergies - Medications Home Medications: Ambulatory Orders Medication Instructions Recorded Confirmed Atorvastatin [Lipitor] 40 mg PO DAILY 03/23/17 08/20/20 Acetaminophen [Pain Reliever Adult] 15 ml PO Q8H PRN 01/22/20 08/20/20 Aspirin 81 mg PO DAILY 01/22/20 08/20/20 Levothyroxine Sodium [Synthroid] 0.5 tab PO DAILY 01/22/20 08/20/20 Lidocaine HCl [Aspercreme 1 applic TP DAILY MDD to b/l knees 01/22/20 08/20/20 Lidocaine] Menthol/Zinc Oxide [Calmoseptine 1 applic TP DAILY 01/22/20 04/14/20 Ointment] Tamsulosin HCl [Flomax] 0.4 mg PO QPM 01/22/20 08/20/20 polyethylene glycoL 3350 [Miralax] 8.5 - 17 gm PO DAILY 01/22/20 08/20/20 risperiDONE [RisperDAL] 0.25 mg PO DAILY 02/05/20 08/20/20 Hemp Cream 1,000,000 TP DAILY PRN 02/19/20 risperiDONE [RisperDAL] 0.25 mg PO DAILY PRN 02/19/20 08/20/20 Citalopram [CeleXA] 10 mg PO DAILY 04/26/20 08/20/20 risperiDONE [Risperidone] 0.5 mg PO QPM 04/26/20 08/20/20 Gabapentin [Neurontin] 250 mg PO QPM 06/21/20 08/20/20 Magnesium Hydroxide [Milk of 30 ml PO DAILY PRN MDD if no BM in 07/29/20 08/20/20 Magnesia] 3 days Acetaminophen [Acetaminophen Extra 500 mg PO DAILY MDD Liquid 08/20/20 08/20/20 Strength] 500mg/15ml - Allergies Allergies/Adverse Reactions: Allergies Allergy/AdvReac Type Severity Reaction Status Date / Time No Known Drug Allergies Allergy Verified 08/20/20 15:25 Review of Systems - Constitutional Constitutional: reports: Fatigue, Poor appetite (waxing and waning), Other (appx 30lbs while in inpatient rehab, Left MAC 26cm January 2020; Left MAC 03/10/2020 26.5cm with visible muscular atrophy; Left MAC 26.5cm today--stable). denies: Fever - Eyes Eyes: reports: Vision loss (left eye), Other (crusting to eyelids in the mornings that is easily removed with a warm washcloth) - Ears, Nose & Throat Ears, Nose & Throat: reports: Hearing loss, Hearing aids (does not wear his hearing aids). denies: Nasal congestion - Gastrointestinal Gastrointestinal: reports: Constipation (see HPI), Reflux/heartburn (improved wi th omeprazole). denies: Abdominal pain, Nausea, Vomiting - Genitourinary Genitourinary: reports: Incontinence. denies: Dysuria - Musculoskeletal Musculoskeletal: reports: Stiffness (increased contractures noted to LE), Muscle weakness (due to CVA with left sided weakness), Joint pain (improved since initiating gabapentin and not asking for tylenol routinely), Assistive devices, Transfer issues. denies: Joint swelling - Integumentary Integumentary: reports: Rash (base of neck-improved) - Neurological Neurological: reports: General weakness, Memory problems, Other (neuropathic pain, improved with gabapentin, see HPI) - Psychiatric Psychiatric: reports: Aggitation (controlled), Behavior disturbances - Endocrine Endocrine: reports: Hypothyroidism - Hematologic/Lymphatic Hematologic/Lymph: reports: Other (No recuurent infections) - All Other Systems All Other Systems: reports: Reviewed and negative (Patient is a poor historian due to dementia. Review of systems supplemented patient's significant other and caregiver, Shannon.) Physical Exam - Vital Signs Pulse Rate: 90 O2 Saturation: 94 (on RA) Blood Pressure: 110/70 (left arm) - Physical Exam General Appearance: positive: No acute distress, Alert, Cachetic, Other (sitting up in bed) Eyes Bilateral: positive: Other (slight crusting to right lower eyelid from sleep) ENT: positive: No signs of dehydration Neck: positive: Trachea midline Cardiovascular: positive: Regular rate & rhythm. negative: No murmur Respiratory: positive: No respiratory distress, Breath sounds nml, Diminished in bases Abdomen: positive: Non-tender, Soft, Nml bowel sounds. negative: Distended Skin: positive: Other (b/l heels intact without erythema; thickened toenails; ingrown toenail to right great toe and no evidence to b/l great toenails of erythema, edema or discharge.). negative: Rash Extremities: positive: No pedal edema, Other (+muscular atrophy- generalized; +scars to b/l knees) Neurologic/Psychiatric: positive: Mood/affect nml, Disoriented to time, Weakness, Other (Calm without aggitation) Palliative Care - POLST Patient has POLST: Yes POLST Status: DNR, Comfort Measures Pain: Comment (increased neuropathic pain to heels and to touch reported on gabapentin and tylenol PRN) Anorexia: Moderate (4-6) Constipation: Yes, Managed Performance Status: FAS T7 C - Palliative Care Discussion: The patient's behaviors are presently well controlled with risperidone administered routinely as well as his citalopram for underlying anxiety. He has not had any outbursts per his significant other's report. However, he can go on a verbal tangent with some tangential thinking intermittently and his significant other just listens and provide support. His significant other reports some frustration has every visitor that comes will only stay for short period of time and always say "Tank is doing very well." She is frustrated that they do not see what she and the caregivers experience on a daily and routine basis. The significant other, Viviana recognizes that the patient continues to have a slow, functional decline which is further indicated by his change in appetite and need for being fed and assisted. Viviana continues to be by the patient's side and has declined going out for outings with friends as she is quite fearful that if she were to leave the patient that there might be a chance that he would without her being present. Empathetic listening provided. She is looking forward to her children visiting from [place] in September which will provide a enjoyable visit. Gently encouraged the patient significant other to have short outings to focus on self- care as she also has some underlying health concerns herself with openness to this suggestion. Impression and Recommendations - Palliative Care Impression: This is an 85-year-old gentleman who was had the misfortune of sustaining an ischemic right MCA stroke that has led to functional decline and residual left hemiparesis. His underlying dementia subsequently worsened after sustaining a CVA with behavioral disturbances. His neuropathy is increasing and determined that he was receiving not a requested dose of gabapentin and therefore will initiate gabapentin 250 mg in the evening and titrate accordingly. The goal is to focus on comfort within the home setting. Palliative care will continue provide support for symptom management, care coordination, supportive listening, anticipatory guidance with transition to hospice when medically appropriate. Recommendations/Counseling Done: 1. Thickened toenails consistent with onychomycosis. No evidence of infection to left great toenail on assessment today. Reviewed signs and symptoms of cellulitis and when to call such as discharge, redness, or swelling to the site. Would request that private caregivers continue to provide routine nail care as have been unable to obtain someone to come to the home to provide nail care. 2.Neuropathic pain. History of CVA in 2019. Incorrect dosage has been administered and will start over after review with private caregiver regarding dosage administration. Discontinue prior gabapentin orders. Initiate gabapen tin 250 mg's in the evening which equates to 5 mL or 1 teaspoon reviewed with private caregiver and understanding verbalized as well as with significant other. We will continue to monitor the patient's tolerance and comfort and titrate accordingly. Due to underlying joint pain requested that acetaminophen 500 mg (15 mL (be administered in the morning for pain. Advised not to exceed 3000 mg of acetaminophen daily from all sources with the patient significant other and caregiver. 3. GERD. Raw solved. May remain off omeprazole at this time may consider reinitiation if symptoms return. Would prefer to remain off an additional medication to reduce medication burden. 4. Constipation. Sedentary lifestyle contributing as well as poor rectal tone resulting from his history of CVA. Discussed how to titrate MiraLAX with the patient's significant other and caregiver. If the patient has more than 1 bowel movement in a day then the next day would do half a cap of MiraLAX and then the following day resume 1 cap daily to prevent and a cycle of continued constipation. Both verbalized understanding. If the patient has not had a bowel movement in 3 days then may utilize a Dulcolax suppository and milk of magnesia 30 mL x 1 for a bowel movement. Continue to monitor. 5. Protein calorie malnutrition. Left arm MAC stable at 26.5 cm. Continue to offer foods that the patient finds pleasurable. Continue protein supplementation with Ensure supplementation. Continue to monitor MAC. 6. Caregiver fatigue and burden. Continue to provide support for the patient significant other, Viviana as it has been a difficult adjustment for her with continued caregivers 06/11 within the home as well as her own underlying health problems. Strongly encouraged her to be participatory with her local friends even for short periods at a time to be able to be engaged in other activities without of the outside of the home as the patient is never left unattended. 7. Dementia with behavioral disturbances. Multifactorial due to underlying cognitive deficits prior to sustaining a CVA in July 2019. Continue citalopram 10 mg daily. Continue risperidone 0.25 mg in the morning and 0.5 mg in the evening. Continue to expect a gradual decline given the patient's advanced age and chronic comorbidities. 8. Advance care planning. Patient remains homebound due to his significant comorbidities and underlying debility. Palliative care will continue to provide support within the home setting as the patient is unable to leave his home setting. Reintroduced hospice services today and when a transition may be expected with the patient's significant other. Supportive listening provided. Refills provided on request of medications of citalopram, Synthroid, simvastatin, and tamsulosin. Patient would benefit from lab obtainment for monitoring his TSH level for adequate dosing at next evaluation. Total time spent 90 minutes with greater than 50% of the spent in counseling coordination of care with the patient's significant other, Viviana and caregiver Aziza; examination of the patient, review of medication administration and correct dosages; supportive listening; review of pain and symptom management and anticipatory guidance. Disclaimer: The chart note was formulated using voice recognition technology and unfortunately sound alike errors may occur.
== END 2020-08-20 11:11 | disposition home or self-care (01) ==
LOC: PC 11:10
PROVIDERS: ATTEND Nurse Practitioner Family
DX: Z51.5 Encounter for palliative care (principal); L60.2 Onychogryphosis; G62.9 Polyneuropathy, unspecified; K59.00 Constipation, unspecified; E46 Unspecified protein-calorie malnutrition; F03.91 Unspecified dementia, unspecified severity, with behavioral disturbance; Z66 Do not resuscitate
CPT/HCPCS: 99350

== ENCOUNTER 2020-09-08 11:15 | Outpatient (CLI) | payer MEDICARE, OTHER ==
--- NOTE | 2020-09-08 16:54 | CONSULTATION NOTE ---
Palliative Care Follow Up - Referral Referring Provider: Dr. Italo Reagan Time of Visit: [id number] Referral setting: Home Referral Reason: Neuropathy/Dementia with behavior/Constipation - Information Sources Records reviewed: Previous records reviewed History/Review of Systems obtained from: Patient, Family (KEVIN, Viviana), Caregiver (Shannon) Exam limitations: Clinical condition (Advanced Dementia) - History of Present Illness Update Brief HPI Update: This is a 85-year-old gentleman who was seen in follow-up today in his home regarding constipation, residual effects of CVA, neuropathic pain, dementia with behavioral disturbances with his significant other, Viviana and his private caregiver, Shannon at present. On last evaluation earlier this month the patient was initiated on gabapentin 250 mg in the evening as he was having increased sensitivity to light touch and complaining of pain to his bilateral feet. At the time, it was found that he was not being administered the appropriate dose of gabapentin and teaching was performed with the patient's significant other and private caregiver at that ti nc. Since last evaluation table was created for all parties in the home to follow for medication administration to clarify dosages as well as timing and frequency. Patient had previously been requesting as needed acetaminophen more frequently prior to initiating gabapentin 250 mg on 08/20/2020. Since initiating gabapentin the patient has no longer been requesting acetaminophen for. He has had improvement with sensitivity to touch to his lower extremities. However, he continues to have some mild reports of discomfort to his feet and would therefore benefit from further titration of his gabapentin for management of his neuropathy. There is some discrepancy regarding different caregivers and their administration of the patient's MiraLAX and senna for his bowel regimen. At length today the use of MiraLAX for softening and senna for stimulation for defecation. Reviewed titration management and goal to have a slow formed stool on a daily to every other day basis. The patient's appetite has improved however, he continues to require assistance with feeding. He is now needing assistance with brushing his teeth with cueing and guidance. Also found, that the patient inadvertently did not receive his citalopram for 2 weeks in July 2020 and therefore contributed to increased agitation and irritability that has subsequently resolved with resumption of his citalopram. The patient has not been receiving risperidone 0.25 mg in the morning though this is been recommended and prescribed. He continues with risperidone 0.5 mg in the evening. Has the patient mood appears to be stable move forward with readding back risperidone 0.25 mg in the morning. The patient has been reporting some left upper extremity discomfort over the last several days with no known injury. He has responded well to local massage. Patient is seen resting in his hospital bed, with no evidence of distress. 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 Social History - Living Situation Living arrangement: At home Living Situation: With spouse/s.o., With caregiver(s) Support System: Patient has been twice. He has a significant other, Viviana have been together for approximately 27 years. They relocated to [facility] in 1998. 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 He also served in [employer]. He is a graduate of the [employer] in [place] in 1959. He has 06/11 caregiving support from visiting [place] with a primary caregiver, Thelma and caregiver, Shannon, whom has been a good fit for not only the patient but Viviana as well. Thelma is 3 days per week and Shannon 4 days per week. This morning he gave a very detailed and accurate lecture regarding the disease as client to the patient's significant other and caregiver. Medications/Allergies - Medications Home Medications: Ambulatory Orders Medication Instructions Recorded Confirmed Atorvastatin [Lipitor] 40 mg PO DAILY 03/23/17 09/08/20 Acetaminophen [Pain Reliever Adult] 15 ml PO Q8H PRN 01/22/20 09/08/20 Aspirin 81 mg PO DAILY 01/22/20 09/08/20 Levothyroxine Sodium [Synthroid] 0.5 tab PO DAILY 01/22/20 09/08/20 Lidocaine HCl [Aspercreme 1 applic TP DAILY MDD to b/l knees 01/22/20 09/08/20 Lidocaine] Menthol/Zinc Oxide [Calmoseptine 1 applic TP DAILY 01/22/20 09/08/20 Ointment] Tamsulosin HCl [Flomax] 0.4 mg PO QPM 01/22/20 09/08/20 polyethylene glycoL 3350 [Miralax] 8.5 - 17 gm PO DAILY 01/22/20 09/08/20 Hemp Cream 1,000,000 TP DAILY PRN 02/19/20 risperiDONE [RisperDAL] 0.25 mg PO DAILY PRN 02/19/20 09/08/20 Citalopram [CeleXA] 10 mg PO DAILY 04/26/20 09/08/20 risperiDONE [Risperidone] 0.5 mg PO QPM 04/26/20 09/08/20 Gabapentin [Neurontin] 250 mg PO BID 06/21/20 09/08/20 Magnesium Hydroxide [Milk of 30 ml PO DAILY PRN MDD if no BM in 07/29/20 09/08/20 Magnesia] 3 days Acetaminophen [Acetaminophen Extra 500 mg PO DAILY MDD Liquid 08/20/20 09/08/20 Strength] 500mg/15ml - Allergies Allergies/Adverse Reactions: Allergies Allergy/AdvReac Type Severity Reaction Status Date / Time No Known Drug Allergies Allergy Verified 09/08/20 17:16 Review of Systems - Constitutional Constitutional: reports: Fatigue, Other (appx 30lbs while in inpatient rehab, Left MAC 26cm January 2020; Left MAC 03/10/2020 26.5cm with visible muscular atrophy; Left MAC 26.5cm today--stable). denies: Fever - Eyes Eyes: reports: Vision loss (left eye) - Ears, Nose & Throat Ears, Nose & Throat: reports: Hearing loss, Hearing aids (does not wear his hearing aids). denies: Nasal congestion - Cardiovascular Cardiovascular: denies: Edema - Respiratory Respiratory: denies: Cough - Gastrointestinal Gastrointestinal: reports: Constipation (see HPI), Good appetite (improved). denies: Vomiting - Genitourinary Genitourinary: reports: Incontinence. denies: Dysuria - Musculoskeletal Musculoskeletal: reports: Muscle pain (LUE), Stiffness (contractures noted to LE), Muscle weakness (due to CVA with left sided weakness), Joint pain (improved since initiating gabapentin and not asking for tylenol routinely), Assistive devices, Transfer issues. denies: Joint swelling - Integumentary Integumentary: reports: Nail changes (left great toe nail improved) - Neurological Neurological: reports: General weakness, Memory problems, Other (neuropathic pain, improved with gabapentin, see HPI) - Psychiatric Psychiatric: reports: Aggitation (controlled), Behavior disturbances - Endocrine Endocrine: reports: Hypothyroidism - Hematologic/Lymphatic Hematologic/Lymph: denies: Recurrent infections - All Other Systems All Other Systems: reports: Reviewed and negative (Patient is a poor historian due to dementia. Review of systems supplemented patient's significant other and caregiver, Shannon.) Physical Exam - Vital Signs Temperature: 36.6 C Pulse Rate: 72 O2 Saturation: 96 (on RA at rest) Blood Pressure: 123/66 (right wrist cuff) - Physical Exam General Appearance: positive: No acute distress, Alert, Cachetic, Other (resting in hospital bed) Eyes Bilateral: positive: Other (+b/l temporal wasting) ENT: positive: No signs of dehydration Neck: positive: Trachea midline Cardiovascular: positive: Regular rate & rhythm Respiratory: positive: No respiratory distress, Breath sounds nml, Diminished in bases Abdomen: positive: Non-tender, Soft, Nml bowel sounds, Other (slight extension noted to right mid quadrant--however liver is not enlarged, NTTP--?stool). negative: Distended Skin: positive: Other (b/l heels intact without erythema; thickened toenails; left great toe nail improved with caregivers oversight). negative: Rash Extremities: positive: No pedal edema, Other (+muscular atrophy- generalized; +scars to b/l knees; +b/l knees slightly flexed due to contracture; +left upper extremity without tenderness to palpation, erythema or visible deformity for cause of discomfort) Neurologic/Psychiatric: positive: Mood/affect nml, Disoriented to time, Weakness, Other (Calm without aggitation) Palliative Care - POLST Patient has POLST: Yes POLST Status: DNR, Comfort Measures Pain: Pain improved (continues with neuropathic pain to B/l feet--however improved with gabapentin and routine acetaminophen in AM; LUE discomfort intermittently responds to massage) Constipation: Managed Performance Status: Patient is nonambulatory and bedbound or in tilt in space wheelchair. Requires assistance entirely with meals. Now requiring cueing and guidance with brushing his teeth. Improved appetite. No dysphagia during meals. Incontinent of bowel and bladder. FAS T7 C - Palliative Care Discussion: Clarification performed today with both the patient's caregiver and significant other regarding medication administration with return demonstration of appropriate dosages regarding liquid oral medications with appropriate return back demonstrated. Patient also has a chart with all of his medications and administration times that this [employer] created and is in the home for reference for all parties taking care of the patient. The patient continues to demonstrate signs and symptoms of neuropathic pain and therefore will increase his gabapentin dosage from 250 mg once daily to twice da wilfrido. Reemphasized presently he is on acetaminophen 500 mg in the morning and to utilize 500 mg as needed every 8 hours for discomfort or pain and if there is increased frequency of acetaminophen then palliative care is to be contacted for symptom management with understanding verbalized. The patient significant other, Viviana has developed a good rapport and working relationship with caregiver, Sukhwinder ricketts who relieves caregiving stresses and burden from the patient's caregiver. Viviana is looking forward to an upcoming visit from her family that reside in [place] late in September. Impression and Recommendations - Palliative Care Impression: This is an 85-year-old gentleman who was had the misfortune of sustaining an ischemic right MCA stroke that has led to functional decline and residual left hemiparesis. His underlying dementia subsequently worsened after sustaining a CVA with behavioral disturbances. His neuropathy has improved but continues and would benefit from increase of gabapentin to 250 mg twice daily. His behavioral disturbances and mood are stable at the present time and do not require dose adjustments. The goal is to focus on comfort within the home setting. Palliative care will continue to provide support for symptom management, care coordination, supportive listening, anticipatory guidance with transition to hospice when medically appropriate. Recommendations/Counseling Done: 1. Neuropathic pain. History of CVA in 2019. Increase patient's gabapentin to 250 mg twice daily was reviewed at length with the patient's caregiver and significant other. Would expect that may require 3 times daily dosing moving forward. 2. Osteoarthritic pain and noted contractures to bilateral knees. Pain appears to be controlled and stable. Continue acetaminophen 500 mg in the morning. Continue acetaminophen 500 mg every 8 hours as needed for discomfort. Significant other aware to contact palliative care if increased frequency required of acetaminophen for pain management with understanding verbalized. Given left upper extremity muscular skeletal discomfort recommended routine massage either with lotion or [id number] Aspercreme as this has been effective. 3. Constipation. Sedentary lifestyle contributing as well as poor rectal tone resulting from his history of CVA. Discussed again today regarding dose titration of MiraLAX and senna based on the patient's bowel response. Continue MiraLAX 1 cap daily and senna 1 tablet daily and hold if loose stools. 4. Protein calorie malnutrition. Left arm MAC stable at 26.5 cm. Continue to offer foods the patient provides pleasurable. Continue protein supplementation with Ensure. Continue to monitor left MAC. 5. Caregiver burden. Continue to provide support for the patient significant other, Viviana as she has her own underlying health problems and recent changes in her life due to the patient's chronic multiple comorbidities. Viviana has developed a good rapport with one of the private caregivers who relieve some of her stressors. Supportive listening and empathy continue to be provided to Viviana. For the patient, would benefit from addition of a male volunteer who has experience to provide companionship and Viviana is open to this intervention and referral will be placed. 6. Dementia with behavioral disturbances. Multifactorial due to underlying cognitive deficits prior to sustaining a CVA in July 2019. Continue citalopram 10 mg daily. Reviewed with patient significant other and caregiver that in the future if wish to discontinue citalopram pram this needs to be tapered for discontinuation to avoid withdrawal effects with understanding verbalized. As he has not been receiving risperidone in the morning will discontinue risperidone 0.25 mg and not reinitiate as symptoms are controlled. Continue risperidone 0.5 mg in the evening. Continue risperidone 0.25 mg once daily as needed for acute anxiety or agitation. We will continue to expect a gradual decline given the patient has advanced age and chronic comorbidities. Total time spent 60 minutes with greater than 50% of the spent in counseling coordination of care with the patient's significant other, Viviana and caregiver, Sukhwinder at examination review of medication administration with chart review; empathetic and supportive listening; evaluation of the patient; review of pain and symptom management and anticipatory guidance. Disclaimer: The chart note was formulated using voice recognition technology and unfortunately sound alike errors may occur.
== END 2020-09-08 11:16 | disposition home or self-care (01) ==
LOC: PC 11:15
PROVIDERS: ATTEND Nurse Practitioner Family
DX: Z51.5 Encounter for palliative care (principal); G62.9 Polyneuropathy, unspecified; I69.354 Hemiplegia and hemiparesis following cerebral infarction affecting left non-dominant side; M17.0 Bilateral primary osteoarthritis of knee; M24.562 Contracture, left knee; M24.561 Contracture, right knee; K59.00 Constipation, unspecified; F03.91 Unspecified dementia, unspecified severity, with behavioral disturbance; E46 Unspecified protein-calorie malnutrition; Z66 Do not resuscitate
CPT/HCPCS: 99350

== ENCOUNTER 2020-10-04 10:53 | Outpatient (CLI) | payer MEDICARE, OTHER ==
--- NOTE | 2020-10-04 11:02 | CONSULTATION NOTE ---
Palliative Care Follow Up - Referral Referring Provider: Dr. Italo Reagan Time of Visit: 3020-8111 Referral setting: Home Referral Reason: Neuropathy/Dementia/Labwork - Information Sources Records reviewed: Previous records reviewed History/Review of Systems obtained from: Patient, Family (KEVIN, Viviana), Caregiver (Shannon) Exam limitations: Clinical condition (Advanced Dementia) - History of Present Illness Update Brief HPI Update: This is an 85-year-old gentleman who was seen in follow-up today in his home r egarding residual effects of CVA, neuropathic pain, dementia with behavioral disturbances and obtainment of lab work with his significant other, Viviana and his private caregiver Shannon present at the bedside. Patient has tolerated gabapentin 250 mg twice a day for neuropathic pain. He is having a reduction in reports of discomfort to light touch as well as no longer complaining of pain in his bilateral feet. He does report discomfort to his left shoulder with movement likely indicative of some underlying arthritic pain. Typically the patient's caregiver or significant other will rub hemp oil on the affected joint first thing in the morning and which is effective or aspercreme. Otherwise, he has as needed acetaminophen to be administered in liquid formation with positive response. It has been difficult to regulate the patient's bowel movements especially in light of recent visitors within the home that was visiting from out of state. Patient will go from having multiple bowel movements in a day and then holding MiraLAX and then resuming and it appears to be that one Is too much and therefore would recommend only doing half a cap for regularization. The patient's appetite continues to wax and wane. He has not had a noted dysphagia or cough during meals. Overall his significant other, Viviana reports "an adequate oral intake." The patient himself however is just not consuming the portion size of his meals like he had been previously. He is choosing to stay more in bed and not wishing to get up despite the use of a Ariana lift. The patient significant other reports that the patient is periodically clearing his throat. He has been afebrile. He does not have a history of seasonal allergies. He has not demonstrated any signs or symptoms of respiratory distres s. The patient is seen resting in his hospital bed with no evidence of distress. 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 Social History - Living Situation Living arrangement: At home Living Situation: With spouse/s.o., With caregiver(s) Support System: Patient has been twice. He has a significant other, Viviana have been together for approximately 27 years. They relocated to [facility] in 1998. 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 He also served in [place]. He is a graduate of the [employer] in [place] in 1959. He has 06/11 caregiving support from visiting [place]. One of his private caregi vers just gave notice and now Viviana is relying on Shannon for full caregiving support until a second person is hired. Viviana's child and his family came from [place] for a week long visit and the patient thrived under the attention in the household. Attempted a palliative care volunteer but when the volunteer was scheduled to come the patient was no longer open to the visitation. Medications/Allergies - Medications Home Medications: Ambulatory Orders Medication Instructions Recorded Confirmed Atorvastatin [Lipitor] 40 mg PO DAILY 03/23/17 09/08/20 Acetaminophen [Pain Reliever Adult] 15 ml PO Q8H PRN 01/22/20 09/08/20 Aspirin 81 mg PO DAILY 01/22/20 09/08/20 Levothyroxine Sodium [Synthroid] 0.5 tab PO DAILY 01/22/20 09/08/20 Lidocaine HCl [Aspercreme 1 applic TP DAILY MDD to b/l knees 01/22/20 09/08/20 Lidocaine] Menthol/Zinc Oxide [Calmoseptine 1 applic TP DAILY 01/22/20 09/08/20 Ointment] Tamsulosin HCl [Flomax] 0.4 mg PO QPM 01/22/20 09/08/20 polyethylene glycoL 3350 [Miralax] 8.5 - 17 gm PO DAILY 01/22/20 09/08/20 Hemp Cream 1,000,000 TP DAILY PRN 02/19/20 risperiDONE [RisperDAL] 0.25 mg PO DAILY PRN 02/19/20 09/08/20 Citalopram [CeleXA] 10 mg PO DAILY 04/26/20 09/08/20 risperiDONE [Risperidone] 0.5 mg PO QPM 04/26/20 09/08/20 Gabapentin [Neurontin] 250 mg PO BID 06/21/20 09/08/20 Magnesium Hydroxide [Milk of 30 ml PO DAILY PRN MDD if no BM in 07/29/20 Magnesia] 3 days Acetaminophen [Acetaminophen Extra 500 mg PO DAILY MDD Liquid 08/20/20 09/08/20 Strength] 500mg/15ml - Allergies Allergies/Adverse Reactions: Allergies Allergy/AdvReac Type Severity Reaction Status Date / Time No Known Drug Allergies Allergy Verified 09/08/20 17:16 Review of Systems - Constitutional Constitutional: reports: Fatigue (staying in bed more), Other (appx 30lbs while in inpatient rehab, Left MAC 26cm January 2020; Left MAC 03/10/2020 26.5cm with visible muscular atrophy; Left MAC 26.5cm today 10/04/20 (stable)). denies: Fever - Eyes Eyes: reports: Vision loss (left eye) - Ears, Nose & Throat Ears, Nose & Throat: reports: Hearing loss, Hearing aids (does not wear his hearing aids). denies: Nasal congestion, Dry mouth - Cardiovascular Cardiovascular: denies: Chest pain, Edema - Respiratory Respiratory: reports: Other (+clearing throat intermittently, see HPI) - Gastrointestinal Gastrointestinal: reports: Other (appetite waxes and wanes but overall adequate intake). denies: Abdominal pain, Constipation (see HPI), Vomiting - Genitourinary Genitourinary: reports: Incontinence. denies: Dysuria - Musculoskeletal Musculoskeletal: reports: Stiffness (contractures noted to LE), Muscle weakness (due to CVA with left sided weakness), Joint pain (left shoulder, see HPI), Assistive devices, Transfer issues. denies: Joint swelling - Integumentary Integumentary: reports: Nail changes (left great toe nail improved without s/s of infection) - Neurological Neurological: reports: General weakness, Memory problems. denies: Other (neuropathic pain) - Psychiatric Psychiatric: reports: Aggitation (controlled), Behavior disturbances - Endocrine Endocrine: reports: Hypothyroidism - Hematologic/Lymphatic Hematologic/Lymph: denies: Recurrent infections - All Other Systems All Other Systems: reports: Reviewed and negative (Patient is a poor historian due to dementia. Review of systems supplemented patient's significant other Viviana and caregiver, Shannon.) Physical Exam - Vital Signs Pulse Rate: 63 O2 Saturation: 94 (on RA) Blood Pressure: 118/62 - Physical Exam General Appearance: positive: No acute distress, Alert, Cachetic, Other (resting in hospital bed) Eyes Bilateral: positive: Other (+b/l temporal wasting) ENT: positive: No signs of dehydration Neck: positive: Trachea midline Cardiovascular: positive: Regular rate & rhythm, No murmur Respiratory: positive: No respiratory distress, Breath sounds nml. negative: Rales Abdomen: positive: Non-tender, Soft, Nml bowel sounds. negative: Distended, Obe se Skin: positive: Other (b/l heels intact without erythema; +thickened toenails). negative: Rash Extremities: positive: No pedal edema, Other (+muscular atrophy- generalized; +scars to b/l knees; +b/l knees slightly flexed due to contracture; +left upper extremity without tenderness to palpation with discomfort with active movement reported) Neurologic/Psychiatric: positive: Mood/affect nml, Disoriented to time, Weaknes s, Other (Calm without aggitation) Palliative Care - POLST Patient has POLST: Yes POLST Status: DNR, Comfort Measures Pain: Comment (Improvement of neuropathy to b/l feet; reporting discomfort to left shoulder with movement intermittently with positive response to massage with application of hemp or aspercreme and if needed administration of acetaminophen) Sleep: Sleeps well Constipation: Managed Performance Status: FAST 7C Results - Lab Results Fish Bones: 10/04/20 10:55 Impression and Recommendations - Palliative Care Impression: This is an 85-year-old gentleman who was had the misfortune of sustaining an ischemic right MCA stroke that has led to functional decline and residual left hemiparesis. His underlying dementia subsequently worsened after sustaining a CVA with behavioral disturbances. His neuropathy is controlled with gabapentin 250 mg twice daily. His overall mood is stable. However, is showing some signs of decline with sleeping more during the day and opting to stay in bed. However, his left MAC remains stable at 26.5 cm. The goal is to focus on comfort within the home setting. Palliative care will continue to provide support for symptom management, care coordination, supportive listening, anticipatory guidance with transition to hospice when medically appropriate. Recommendations/Counseling Done: 1. Neuropathic pain. History of CVA in 2020. Improved. Continue gabapentin 250 mg twice daily. Continue to monitor and adjust regimen as needed to optimize comfort. 2.Osteoarthritic pain. Multiple joints. Pain presently appears to be stable and controlled. Continue acetaminophen 500 mg in the morning. Continue acetaminophen 500 mg every 8 hours as needed for discomfort. Left shoulder discomfort responds appropriately to routine massage with [id number] Aspercreme cream and will continue this. If there is a point that this is no longer effective then consider Voltaren gel application for management. Patient significant other has relate hesitancy about opioid therapy in the past and this is a consideration regarding management. Continue to monitor and adjust pain regimen as needed to optimize the patient's level of comfort. 3. Constipation. Sedentary lifestyle contributing as well as poor rectal tone resulting from his history of CVA. If patient has adequate bowel response to MiraLAX then would proceed the following day with just half a cap daily as too much with 1 cap peers to be too effective. Caregiver and significant other verbalized understanding. 4.Dementia with behavioral disturbances. Multifactorial due to underlying cognitive deficits prior to sustaining a CVA in July 2019. Continue citalopram 10 mg daily. Continue risperidone 0.5 mg in the evening. Continue risperidone 0.25 mg once daily as needed for acute anxiety or agitation. Despite originally being open to having a volunteer be present within the home the patient has now declined and will discontinue volunteer services from palliative care/hospice pool. We will continue to expect a gradual decline given the patient advanced age and chronic comorbidities. 5. Hypothyroidism. Continue Synthroid as prescribed. Obtain free T4 and TSH today and follow with results to see if dose adjustment is needed. We will follow with results. 6. Hyperlipidemia. At the present time, continue statin therapy and obtain lipid panel and CMP for evaluation of liver enzymesAnd follow with results. Patient begins to demonstrate further decline may have a conversation with the patient's significant other and court-appointed guardian regarding discontinuation of statin therapy weighing benefits versus burdens and time to see benefit. 7.Advance care planning. Patient has a POLST as DN AR focused on comfort measures. Patient significant other wishes for the patient to remain within his home environment with support of caregivers until end-of-life with her transition to hospice services. She does express some concern [place] the financial burden. However, at the present time the patient has adequate coverage for caregiving support and will continue to provide supportive listening to the spouse of significant other and assist if possible to maintain the goal of having the patient remain within his home setting. Total time spent 60 minutes with greater than 50% spent in counseling and coordination of care with the patient, significant other, caregiver present; review of medications; examination of patient; review of hospice criteria; supportive listening; review of pain and symptom management and anticipatory guidance. Disclaimer: The chart note was formulated using voice recognition technology and unfortunately sound alike errors may occur.
[2020-10-04 11:24] LABS: ALBUMIN 3.4 g/dL (3.2-5.5); ALBUMIN/GLOBULIN RATIO 1.3 (1.0-2.2); ALKALINE PHOSPHATASE 46 IU/L (42-121); ALT ALANINE AMINOTRANSFERASE 10 IU/L (10-60); AST ASPARTATE AMINOTRANSFERASE 16 IU/L (10-42); BILIRUBIN,TOTAL 0.9 mg/dL (0.2-1.0); BUN - BLOOD UREA NITROGEN 20 mg/dL (6-20); CALCIUM 8.9 mg/dL (8.5-10.3); CARBON DIOXIDE - CO2 24 mmol/L (21-32); CHLORIDE 105 mmol/L (101-111); CHOL/HDL RATIO 3.5 (<5.0); CHOLESTEROL 107 mg/dL; CREATININE 0.7 mg/dL (0.6-1.2); GFR - MDRD 108 (>89); GLUCOSE 93 mg/dL (70-100); HDL CHOLESTEROL 31 mg/dL; LDL CHOLESTEROL,CALCULATED 55 mg/dL; LDL/HDL RATIO 1.8 (<3.6); SODIUM 137 mmol/L (135-145); TOTAL PROTEIN 6.1 g/dL (6.7-8.2); TRIGLYCERIDES 106 mg/dL; VLDL CHOLESTEROL 21 mg/dL
[2020-10-04 11:35] LABS: THYROID STIMULATING HORMONE 3.35 uIU/mL (0.34-5.60)
[2020-10-04 11:37] LABS: FREE T4 (FREE THYROXINE) 0.85 ng/dL (0.58-1.64)
== END 2020-10-04 10:54 | disposition home or self-care (01) ==
LOC: PC 10:53
PROVIDERS: ATTEND Nurse Practitioner Family
DX: Z51.5 Encounter for palliative care (principal); I69.354 Hemiplegia and hemiparesis following cerebral infarction affecting left non-dominant side; I69.398 Other sequelae of cerebral infarction; G62.9 Polyneuropathy, unspecified; M89.49 Other hypertrophic osteoarthropathy, multiple sites; F03.91 Unspecified dementia, unspecified severity, with behavioral disturbance; K59.00 Constipation, unspecified; E03.9 Hypothyroidism, unspecified; E78.5 Hyperlipidemia, unspecified; Z66 Do not resuscitate
CPT/HCPCS: 36415; 80053; 80061; 83721; 84439; 84443; 99350

== ENCOUNTER 2020-10-14 11:55 | Outpatient (CLI) | payer MEDICARE, OTHER ==
--- NOTE | 2020-10-14 13:12 | PROVIDER PROGRESS NOTE ---
HPI/Interval History - HPI/Interval History Initiated a telephone conversation with patient's legal guardian, Анна Pantoja at [phone] at the request of the patient's significant other, Viviana after lengthy discussion was had yesterday on 10/13 regarding the need for additional caregiving support for 247 caregiving. The patient has require 24/7 caregiving support since he sustained a CVA in July 2019 and progression of his dementia. He requires assistance with all ADLs and is bedbound.At the present time they only have 1 caregiver for filling the role and need a second caregiver to be adequately staffed. The patient's legal guardian, Анна wishes to discuss care coordination and advance care planning. Review of Systems - Constitutional Constitutional: reports: Fatigue, Other (appx 30lbs while in inpatient rehab, Left MAC 26cm January 2020; Left MAC 03/10/2020 26.5cm with visible muscular atrophy; Left MAC 26.5cm today 10/04/20 (stable)). denies: Fever - Eyes Eyes: reports: Vision loss (left eye) - Ears, Nose & Throat Ears, Nose & Throat: reports: Hearing loss, Hearing aids (does not wear his hearing aids). denies: Nasal congestion, Dry mouth - Respiratory Respiratory: reports: Other (+clearing throat intermittently, see HPI) - Gastrointestinal Gastrointestinal: reports: Other (appetite waxes and wanes but overall adequate intake). denies: Abdominal pain, Constipation (see HPI), Vomiting - Genitourinary Genitourinary: reports: Incontinence. denies: Dysuria - Musculoskeletal Musculoskeletal: reports: Stiffness (contractures noted to LE), Muscle weakness (due to CVA with left sided weakness), Joint pain (left shoulder, see HPI), Assistive devices, Transfer issues. denies: Joint swelling - Integumentary Integumentary: reports: Nail changes (left great toe nail improved without s/s of infection) - Neurological Neurological: reports: General weakness, Memory problems. denies: Other (neuropathic pain) - Psychiatric Psychiatric: reports: Aggitation (controlled), Behavior disturbances - Endocrine Endocrine: reports: Hypothyroidism - Hematologic/Lymphatic Hematologic/Lymph: denies: Recurrent infections - All Other Systems All Other Systems: reports: Reviewed and negative (Patient is a poor historian due to dementia. Review of systems supplemented patient's significant other Viviana and caregiver, Shannon.) Medications/Allergies - Medications Home Medications: Ambulatory Orders Medication Instructions Recorded Confirmed Atorvastatin [Lipitor] 40 mg PO DAILY 03/23/17 09/08/20 Acetaminophen [Pain Reliever Adult] 15 ml PO Q8H PRN 01/22/20 09/08/20 Aspirin 81 mg PO DAILY 01/22/20 09/08/20 Levothyroxine Sodium [Synthroid] 0.5 tab PO DAILY 01/22/20 09/08/20 Lidocaine HCl [Aspercreme 1 applic TP DAILY MDD to b/l knees 01/22/20 09/08/20 Lidocaine] Menthol/Zinc Oxide [Calmoseptine 1 applic TP DAILY 01/22/20 09/08/20 Ointment] Tamsulosin HCl [Flomax] 0.4 mg PO QPM 01/22/20 09/08/20 polyethylene glycoL 3350 [Miralax] 8.5 - 17 gm PO DAILY 01/22/20 09/08/20 Hemp Cream 1,000,000 TP DAILY PRN 02/19/20 risperiDONE [RisperDAL] 0.25 mg PO DAILY PRN 02/19/20 09/08/20 Citalopram [CeleXA] 10 mg PO DAILY 04/26/20 09/08/20 risperiDONE [Risperidone] 0.5 mg PO QPM 04/26/20 09/08/20 Gabapentin [Neurontin] 250 mg PO BID 06/21/20 09/08/20 Magnesium Hydroxide [Milk of 30 ml PO DAILY PRN MDD if no BM in 07/29/20 09/08/20 Magnesia] 3 days Acetaminophen [Acetaminophen Extra 500 mg PO DAILY MDD Liquid 08/20/20 09/08/20 Strength] 500mg/15ml - Allergies Allergies/Adverse Reactions: Allergies Allergy/AdvReac Type Severity Reaction Status Date / Time No Known Drug Allergies Allergy Verified 09/08/20 17:16 Palliative Care - Advance Care Planning Анна, the patient's legal guardian came into her role as the patient had d estroyed his DPOA paperwork indicating his significant other, Viviana as his healthcare power of estate attorney prior to sustaining his CVA in July 2019. Анна and Viviana have formed a partnership and Анна has been providing support to the patient's significant other as well as the patient himself and has been a valued restaurant team member. Has the patient continues to have a slow, progressive functional decline and requires increased assistance with his caregiving needs he cannot be left attended. The patient's significant other, Viviana has fragile physical health and is at risk for subsequent sequela of for her own wellbeing if the present situation continues long-term. At the present time a crisis point is coming if there are role of additional caregiver is not filled. The caregiver will needs to be continuous. If they are unable to obtain 24/7 caregiving support and the patient will need to transfer to an inpatient facility which is been previously articulated as not his wish. However, if it is a safety concern and this may need to be the next course of action. Discussed at length with Анна that there would be a potential to do a respite stay on [facility] or slightly off [place] and offered suggestions of facilities on [place] if they have a respite bed available. The goal would be to have the respite as a trial while the caregiving situation was teased out and fully established. They have contacted [facility] and are working with them for potential caregiver. Also doing a respite stay with leave some burden off of the patient's significant other. The ultimate goal is to have the patient be comfortable and ideally in his home setting however, this will not be feasible if there is not adequate caregiving support and safety needs to be looked at first and foremost. The patient is still not quite at a point to be hospice appropriate outside of being a FAS T7 C. However, even transitioning to hospice services would not solve the caregiver burden and the patient's legal guardian is aware of this. The patient's legal guardian was plans to speak with the patient's significant other, Viviana in regards to the plan of a respite stay and wayne a team of caregivers and then having the patient transition back home as a goal once caregiving support has been established. Time spent on Advance Care Planning (min): 31 Impression and Recommendations Recommendations/Counseling Done: 1.Dementia with behavioral disturbances. Multifactorial due to underlying cognitive deficits prior to sustaining a CVA in July 2019. Continue citalopram 10 mg daily. Continue risperidone 0.5 mg in the evening. Continue risperidone 0.25 mg once daily as needed for acute anxiety or agitation. Would continue to expect a gradual decline given the patient's advanced age and chronic comorbidities. 2.Advance care planning. Patient has a POLST as DN AR focused on comfort measures. The patient's significant other has previously stated her desire for the patient to remain within his home environment with support of caregivers until end-of-life with transition to hospice services. Presently it has been difficult to find an additional caregivers in the home and the next potential step would be a trial respite in a facility while setting up full caregiving support for 06/11 in the home. Guardian, Анна Pantoja plans to discuss with Viviana BROWN regarding this potential option. Palliative care will continue to provide emphatic listening and support transition to facility based care if needed. Disclaimer: The chart note was formulated using voice recognition technology and unfortunately sound alike errors may occur. Telehealth Visit - TeleMedicine Visit Referring Provider: Dr. Italo Reagan Visit Type:: TeleHealth Video Call Patient agrees and consents to this telehealth visit type: Yes Patient agrees to have their insurance billed: Yes Participants:: Other (Legal Guardian,Анна Pantoja) Location of provider:: Office Location of patient:: Home Time spent:: 31 minutes Provider Statement: I spent 100% on the TeleHealth Video Call with the patient with greater than 50% spent counseling the patient and coordination of care.
== END 2020-10-14 11:56 | disposition home or self-care (01) ==
LOC: PC 11:55
PROVIDERS: ATTEND Nurse Practitioner Family
DX: Z51.5 Encounter for palliative care (principal); F03.91 Unspecified dementia, unspecified severity, with behavioral disturbance; Z74.01 Bed confinement status
CPT/HCPCS: 99497

== ENCOUNTER 2020-11-05 09:35 | Outpatient (CLI) | payer MEDICARE, OTHER ==
--- NOTE | 2020-11-05 16:16 | CONSULTATION NOTE ---
Palliative Care Follow Up - Referral Referring Provider: Dr. Italo Reagan Time of Visit: [id number] Referral setting: Home Referral Reason: Dementia/CVA/FTT/Neuropathy - Information Sources Records reviewed: Previous records reviewed History/Review of Systems obtained from: Patient, Family (Significant Other, Viviana), Caregiver (Shannon) Exam limitations: Clinical condition (Advanced Dementia) - History of Present Illness Update Brief HPI Update: This is an 85-year-old gentleman who was seen in follow-up today in his home regarding residual effects of CVA, neuropathic pain, dementia with behavioral disturbances that is progressing with his significant other, Viviana and his private caregiver Sukhwinder at present at the bedside. The patient's neuropathic pain presently is well controlled with gabapentin 250 mg twice daily. He is no longer reporting any increased sensitivity to touch nor complaining of pain to his bilateral feet. The patient is having an increased reports of discomfort with his left shoulder. He has not had any injury to the site. The patient's significant other and caregiver have been applying hemp cream and administering acetaminophen 500 mg 3 times daily with minimal benefit. The patient himself is unable to fully raise his left arm. He is gotten to the point that he is no longer able to assist when rotating and the hospital bed and requires two-person assistance with rotating him. He is no longer able to hold onto the bed rail for any length of time due to the decreased upper extremity strength. The patient significant other previously was averse to opioid therapy but given seeing the patient's discomfort is now open to moving forward with this measure and the patient would ultimately benefit from this. The patient's bowel movements are now regular going approximately every other day soft and well formed. Administering half a cap of MiraLAX in the morning a nd senna 8.6 mg in the evening. The patient denies any abdominal pain. The patient significant other and caregiver also reporting that he is sleeping more during the day and having increased difficulty with word finding. Typically, the patient is very fluent in his confabulation of stories but these are now more halting in his telling given his difficulty with word finding. No behavioral disturbances that have escalated per report. There was 1 day on 11/01 that the patient did not void for almost the entire day. Since that time, he has had multiple saturated depends that have required jesse nging. The patient denies any abdominal discomfort. He does have a history of BPH and is on Flomax. His appetite continues to wax and wane however, his choices are pickier and what he wishes to consume. He is also reduced his coffee intake. The patient is seen resting in his hospital bed with no evidence of acute distress. 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 Social History - Living Situation Living arrangement: At home Living Situation: With spouse/s.o., With caregiver(s) Support System: Patient has been twice. He has a significant other, Viviana have been together for approximately 27 years. They relocated to [facility] in 1998. 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 He also served in [employer]. He is a graduate of the [employer] in [place] in 1959. He has 06/11 caregiving support from [facility]. Unfortunately, [facility] is unable to supply a second caregiver and Shannon has been providing care 24/ for 7 days per week since the previous caregiver gave her notice. The patient is on a wait list for [facility] and this was a difficult decision for Viviana to make but she feels the correct one. post manager for [facility] visited on 10/21 and by legal guardian, Анна on 10/22 at the home. Medications/Allergies - Medications Home Medications: Ambulatory Orders Medication Instructions Recorded Confirmed Acetaminophen [Pain Reliever Adult] 15 ml PO Q8H PRN 01/22/20 09/08/20 Aspirin 81 mg PO DAILY 01/22/20 09/08/20 Levothyroxine Sodium [Synthroid] 0.5 tab PO DAILY 01/22/20 09/08/20 Lidocaine HCl [Aspercreme 1 applic TP DAILY MDD to b/l knees 01/22/20 09/08/20 Lidocaine] Menthol/Zinc Oxide [Calmoseptine 1 applic TP DAILY 01/22/20 09/08/20 Ointment] Tamsulosin HCl [Flomax] 0.4 mg PO QPM 01/22/20 09/08/20 polyethylene glycoL 3350 [Miralax] 8.5 gm PO DAILY 01/22/20 09/08/20 Hemp Cream 1,000,000 TP DAILY PRN 02/19/20 risperiDONE [RisperDAL] 0.25 mg PO DAILY PRN 02/19/20 09/08/20 Citalopram [CeleXA] 10 mg PO DAILY 04/26/20 09/08/20 risperiDONE [Risperidone] 0.5 mg PO QPM 04/26/20 09/08/20 Gabapentin [Neurontin] 250 mg PO BID 06/21/20 09/08/20 Magnesium Hydroxide [Milk of 30 ml PO DAILY PRN MDD if no BM in 07/29/20 09/08/20 Magnesia] 3 days Acetaminophen [Acetaminophen Extra 500 mg PO TID MDD Liquid 500mg/15ml 08/20/20 09/08/20 Strength] Senna [Senokot] 8.6 mg PO DAILY 11/05/20 11/05/20 oxyCODONE [Roxicodone] 0.5 tab PO Q4H PRN 11/05/20 11/05/20 - Allergies Allergies/Adverse Reactions: Allergies Allergy/AdvReac Type Severity Reaction Status Date / Time No Known Drug Allergies Allergy Verified 11/05/20 16:23 Review of Systems - Constitutional Constitutional: reports: Fatigue, Other (appx 30lbs while in inpatient rehab, Left MAC 26cm January 2020; Left MAC 03/10/2020 26.5cm with visible muscular atrophy; Left MAC 26.5cm 10/04/20; Left MAC 25.8cm). denies: Fever - Eyes Eyes: reports: Vision loss (left eye). denies: Other (crusting to upper eyelids in AM) - Ears, Nose & Throat Ears, Nose & Throat: reports: Hearing loss, Hearing aids (does not wear his hearing aids) - Cardiovascular Cardiovascular: denies: Edema - Respiratory Respiratory: denies: Cough - Gastrointestinal Gastrointestinal: reports: Other (appetite waxes and wanes). denies: Abdominal pain, Abdominal distention, Constipation (see HPI), Vomiting - Genitourinary Genitourinary: reports: Incontinence, Other (see HPI). denies: Dysuria - Musculoskeletal Musculoskeletal: reports: Stiffness (contractures noted to LE), Muscle weakness (due to CVA with left sided weakness), Joint pain (left shoulder, see HPI), Assistive devices, Transfer issues. denies: Joint swelling - Integumentary Integumentary: denies: Rash - Neurological Neurological: reports: General weakness, Memory problems. denies: Other (neuropathic pain) - Psychiatric Psychiatric: reports: Aggitation (controlled), Behavior disturbances - Endocrine Endocrine: reports: Hypothyroidism - Hematologic/Lymphatic Hematologic/Lymph: denies: Recurrent infections - All Other Systems All Other Systems: reports: Reviewed and negative (Patient is a poor historian due to dementia. Review of systems supplemented patient's significant other Viviana and caregiver, Shannon.) Physical Exam - Vital Signs Temperature: 36.5 C Pulse Rate: 63 O2 Saturation: 95 (on RA) Blood Pressure: 142/82 - Physical Exam General Appearance: positive: No acute distress, Alert, Cachetic, Other (resting in hospital bed) Eyes Bilateral: positive: Other (+b/l temporal wasting) ENT: positive: No signs of dehydration Neck: positive: Trachea midline Cardiovascular: positive: Regular rate & rhythm, No murmur Respiratory: positive: No respiratory distress, Breath sounds nml Abdomen: positive: Non-tender, Soft, Nml bowel sounds. negative: Distended, Obese, Other (bladder nondistended to palpation) Skin: positive: Other ( +thickened toenails). negative: Rash Extremities: positive: No pedal edema, Other (+muscular atrophy- generalized; +scars to b/l knees; +b/l knees slightly flexed due to contracture; +left upper extremity without tenderness to palpation with sharp discomfort with active movement and trace ceptius noted) Neurologic/Psychiatric: positive: Mood/affect nml, Disoriented to time, Weakness, Other (Calm without aggitation; noted word finding difficulties with less fluent speech) Palliative Care - POLST Patient has POLST: Yes POLST Status: DNR, Comfort Measures Pain: Comment (Pain to left shoulder with movement not controlled fully with tylenol and hemp cream application) Tiredness/Fatigue: Moderate (4-6) (sleeping more during the day) Nausea: None Anorexia: Mild (1-3) Dyspnea: None Depression: None (controlled) Feelings of wellbeing/Perceived Quality of Life: Good Sleep: Sleeps well Constipation: Managed Performance Status: FAST 7C - Palliative Care Discussion: The patient in the last several weeks has demonstrated more functional and cognitive decline with noted weight loss with his MAC decreasing from 26.5 to 25.5 cm. The patient's primary caregiver and significant other recognize the patient's continued decline and ultimately, the patient significant other wishes to focus on comfort measures. Given the increased caregiving needs that the patient requires and lack of caregiving support within the home the patient's significant other has made the difficult decision to have the patient placed at [facility] however, he is on a wait list for an available bed. The patient's significant other is supported in this decision by the patient's state legal guardian, Анна as well as her children. She continues to have struggles regarding her own physical health and wellbeing due to the burden of the caregiving. The patient is having increased pain to his left shoulder likely related to underlying osteoarthritis. Would continue routine acetaminophen 500 mg 3 times daily with addition of oxycodone 2.5 mg every 4 hours as needed for pain. Reviewed purpose, dose and side effects with both the patient's primary caregiver and significant other with understanding verbalized. The patient's significant other wishes to proceed with opioid therapy to ensure that the patient is optimally comfortable. The patient significant other recognizes that hospice is more imminent and she in is preparing herself emotionally for that time but ultimately voices she will be grateful of the support. Impression and Recommendations - Palliative Care Impression: This is a 75-year-old gentleman who was had the misfortune of sustaining an ischemic right MCA stroke that has led to functional decline and residual left hemiparesis. His underlying dementia subsequently worsened after sustaining a CVA with behavioral disturbances. He is having increased osteoarthritic pain to his left shoulder not controlled with hemp cream or routine acetaminophen and would benefit from introduction of low-dose opioid therapy, oxycodone 2.5 mg every 4 hours as needed for pain. The patient is showing more signs of decline more specifically related to reduction in his MAC to 25.5 cm from previous 26.5 cm. The patient's significant other continues to shoulder a significant amount of caregiver burden. The goal is to focus on comfort within the home setting. Palliative care will continue to provide support for symptom management, care coordination, supportive listening and anticipatory guidance with transition to hospice when medically appropriate. Recommendations/Counseling Done: 1. Osteoarthritic pain. Multiple joints most pacifically to left shoulder. Continue acetaminophen 500 mg 3 times daily. Continue acetaminophen 5 mg every 8 hours as needed for discomfort not to exceed 3 g daily of acetaminophen from all sources. We will continue to utilize massage to the left shoulder daily in the morning. Initiate oxycodone 2.5 mg every 4 hours as needed for pain. Recommended utilization as a trial of oxycodone 2.5 mg first thing in the morning prior to a.m. care with his first dose of acetaminophen for adjunct of therapy. Discussed may lead to constipation symptoms and discussed bowel titration of senna and MiraLAX moving forward to ensure a soft, stool every other day. Continue to monitor and adjust pain regimen as needed to optimize the patient's level of comfort. 2. Constipation. Sedentary lifestyle contributing as well as poor rectal tone resulting from his history of CVA. Continue MiraLAX half a cap daily with senna 8.6 mg daily. Again, reviewed dose titration of MiraLAX and senna based on the patient's symptoms to both caregiver and patient significant other with understanding verbalized. 3. Hyperlipidemia. Given the patient's further decline reviewed purpose and time to benefit with the patient's significant other and in agreement to discontinue atorvastatin. 4. Dementia with behavioral disturbances. Multifactorial due to underlying cognitive deficits prior to sustaining a CVA in July 2019. Continue citalopram 10 mg daily. New Rx for citalopram 10 mg sent to [facility] pharmacy per her significant other's request. Continue risperidone 0.5 mg in the evening. Continue risperidone 0.25 mg once daily as needed for acute anxiety or agitation. Patient now at an FAS T7 C demonstrating further signs of decline and is close to being appropriate to transitioning to hospice services. We will continue continue to monitor and expect a gradual decline given the patient's advanced age and chronic comorbidities. 5. Caregiver burden. Patient significant other continues to demonstrate her own underlying health problems and is at risk for subsequent health decline due to this burden. 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 Supportive and empathetic listening provided to the patient significant other. 6. Advanced care planning. Patient has POLST as DN AR focused on comfort measures. Patient has a pending placement for [facility] when a bed is available after the patient significant other making this difficult decision recognizing that the patient requires increased care that is not optimized within the home environment. Total time spent 60 minutes with greater than 50% of the spent in counseling coronation of care with the patient, significant other, child care lead teacher present; review of medications; review of pain management with purpose, dose and side effects; examination of patient; supportive listening; review of pain and symptom management and anticipatory guidance. Disclaimer: The chart note was formulated using voice recognition technology and unfortunately sound alike errors may occur.
== END 2020-11-05 09:36 | disposition home or self-care (01) ==
LOC: PC 09:35
PROVIDERS: ATTEND Nurse Practitioner Family
DX: Z51.5 Encounter for palliative care (principal); R53.83 Other fatigue; M19.012 Primary osteoarthritis, left shoulder; G62.9 Polyneuropathy, unspecified; F03.91 Unspecified dementia, unspecified severity, with behavioral disturbance; I69.354 Hemiplegia and hemiparesis following cerebral infarction affecting left non-dominant side; R63.4 Abnormal weight loss; E78.5 Hyperlipidemia, unspecified; K59.00 Constipation, unspecified; Z79.899 Other long term (current) drug therapy; Z74.1 Need for assistance with personal care; Z74.8 Other problems related to care provider dependency; Z66 Do not resuscitate
CPT/HCPCS: 99350

== ENCOUNTER 2020-11-19 09:05 | Outpatient (CLI) | payer MEDICARE, OTHER ==
--- NOTE | 2020-11-19 14:09 | CONSULTATION NOTE ---
Palliative Care Follow Up - Referral Referring Provider: Dr. 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 Due to a series of unfortunate events he was transferred to [facility] and then was discharged to rehab facility in [place]. It was also unfortunate at the time the patient sustained his CVA his significant other of 28 years was out of state with her own health concerns and therefore the patient was placed in guardianship with his friends, José Manuel and Armida and this was subsequently transitioned to a court appointed guardian, Анна. The patient was in a facility at [facility] for approximately 5 weeks where he lost approximately 30 pounds. He previously weighed 190 pounds prior to his stroke. He is becoming less interested in food. He previously will consume foods that were well prepared for him and now is preferring processed foods. He will continue to have some of his coffee and typically will have his breakfast but otherwise, it is hit or miss if he consumes other meals during the day. His significant other and caregiver are providing smoothies as well as Ensure with protein powder to ensure caloric intake and protein. Recently, the patient significant other started Pedialyte that resulted in loose bowels.She is cutting back on the Pedialyte the patient's bowel movements have returned to her baseline. On last evaluation he was initiated on oxycodone 2.5 mg first in the morning before a.m. care that has been effective however, appears to wear off and does not fully take away his discomfort. His caregiver and significant other report that the patient is asking for Tylenol and typically this is an indicator of the patient is having pain at this is his go to. He continues on acetaminophen 500 mg 3 times daily for pain. Is becoming increasingly difficult to provide care in the bed as the patient is not able to lay on his left side And more difficult on his right side. 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 He continues on risperidone 0.5 mg nightly. His word finding issues are also noting to be increased and he is sleeping more during the day as well as staying in bed. Left MAC 25.5cmToday that has been a gradual increase with left MAC 26.5 cm on 03/10/2020. Patient is seen initially resting in bed with his eyes closed easily arousable. Initially he would not open his eyes even though conversing and with took some prompting to be able to open his eyes. Had some crusting to his eyelids that responded well to administration of artificial tears and a warm washcloth. No evidence of acute distress. 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 +COVID 19 vaccine Social History - Living Situation Living arrangement: At home Living Situation: With spouse/s.o., With caregiver(s) Support System: Patient has been twice. He has a significant other, Viviana have been together for approximately 28 years. They relocated to [facility] in 1998. 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 He also served in [place]. He is a graduate of the [employer] in [place] in 1959. He has 24/7 caregiving support from gael Ramesh. Unfortunately, G[facility] Corcor[facility] is unable to supply a second caregiver and Shannon has been providing care 24/7 for 7 days per week since the previous caregiver gave her notice approximately 3 months ago. The patient is on a wait list for [facility], but could not be until the end of November. The patient had a visit over the weekend from his out of state cousin that was enjoyable. Medications/Allergies - Medications Home Medications: Ambulatory Orders Medication Instructions Recorded Confirmed Acetaminophen [Pain Reliever Adult] 15 ml PO Q8H PRN 01/22/20 09/08/20 Aspirin 81 mg PO DAILY 01/22/20 09/08/20 Levothyroxine Sodium [Synthroid] 0.5 tab PO DAILY 01/22/20 09/08/20 Lidocaine HCl [Aspercreme 1 applic TP DAILY MDD to b/l knees 01/22/20 09/08/20 Lidocaine] Menthol/Zinc Oxide [Calmoseptine 1 applic TP DAILY 01/22/20 09/08/20 Ointment] Tamsulosin HCl [Flomax] 0.4 mg PO QPM 01/22/20 09/08/20 polyethylene glycoL 3350 [Miralax] 8.5 gm PO DAILY 01/22/20 09/08/20 Hemp Cream 1,000,000 TP DAILY PRN 02/19/20 risperiDONE [RisperDAL] 0.25 mg PO DAILY PRN 02/19/20 09/08/20 Citalopram [CeleXA] 10 mg PO DAILY 04/26/20 09/08/20 risperiDONE [Risperidone] 0.5 mg PO QPM 04/26/20 09/08/20 Gabapentin [Neurontin] 250 mg PO BID 06/21/20 09/08/20 Magnesium Hydroxide [Milk of 30 ml PO DAILY PRN MDD if no BM in 07/29/20 09/08/20 Magnesia] 3 days Acetaminophen [Acetaminophen Extra 500 mg PO TID MDD Liquid 500mg/15ml 08/20/20 09/08/20 Strength] Senna [Senokot] 8.6 mg PO DAILY 11/05/20 11/05/20 oxyCODONE [Roxicodone] 0.5 tab PO Q4H PRN 11/05/20 11/05/20 oxyCODONE [Roxicodone] 2.5 mg PO .AT 1400 11/19/20 11/19/20 oxyCODONE [Roxicodone] 5 mg PO .IN MORNING 11/19/20 11/19/20 - Allergies Allergies/Adverse Reactions: Allergies Allergy/AdvReac Type Severity Reaction Status Date / Time No Known Drug Allergies Allergy Verified 11/05/20 16:23 Review of Systems - Constitutional Constitutional: reports: Fatigue, Other (appx 30lbs while in inpatient rehab, Left MAC 26cm January 2020; Left MAC 03/10/2020 26.5cm with visible muscular atrophy; Left MAC 26.5cm 10/04/20; Left MAC 25.8cm 10/2020; Present left MAC 25.5cm). denies: Fever - Eyes Eyes: reports: Vision loss (left eye), Other (crusting to upper eyelids in AM) - Ears, Nose & Throat Ears, Nose & Throat: reports: Hearing loss, Hearing aids (does not wear his hearing aids) - Cardiovascular Cardiovascular: denies: Edema - Respiratory Respiratory: denies: Cough - Gastrointestinal Gastrointestinal: reports: Diarrhea (see HPI), Other (appetite waxes and wanes with overall decrease, see HPI, requires assistance with feeding). denies: Abdominal pain, Vomiting - Genitourinary Genitourinary: reports: Incontinence. denies: Hematuria - Musculoskeletal Musculoskeletal: reports: Stiffness (contractures noted to LE), Muscle weakness (due to CVA with left sided weakness), Joint pain (left shoulder, see HPI), Assistive devices, Transfer issues. denies: Joint swelling - Integumentary Integumentary: denies: Rash - Neurological Neurological: reports: General weakness, Memory problems. denies: Other (neuropathic pain) - Psychiatric Psychiatric: reports: Aggitation (controlled), Behavior disturbances - Endocrine Endocrine: reports: Hypothyroidism - Hematologic/Lymphatic Hematologic/Lymph: denies: Recurrent infections - All Other Systems All Other Systems: reports: Reviewed and negative (Patient is a poor historian due to dementia. Review of systems supplemented patient's significant other Viviana and caregiver, Shannon.) Physical Exam - Vital Signs Temperature: 36.7 C Pulse Rate: 67 O2 Saturation: 94 (on RA) Blood Pressure: 122/67 (left arm) - Physical Exam General Appearance: positive: No acute distress, Alert, Cachetic, Other (resting in hospital bed) Eyes Bilateral: positive: Other (+b/l temporal wasting; crusting to eyelids that responded to warm washcloth) ENT: positive: No signs of dehydration Neck: positive: Trachea midline Cardiovascular: positive: Regular rate & rhythm Respiratory: positive: No respiratory distress, Breath sounds nml. negative: Wheezes Abdomen: positive: Non-tender, Soft, Nml bowel sounds. negative: Distended, Other (bladder nondistended to palpation) Skin: positive: Other ( +thickened toenails) Extremities: positive: No pedal edema, Other (+muscular atrophy- generalized; +scars to b/l knees; +b/l knees slightly flexed due to contracture; +left upper extremity with trace ceptius noted without effusion) Neurologic/Psychiatric: positive: Mood/affect nml, Disoriented to time, Weakness, Other (Calm without aggitation; noted word finding difficulties with less fluent speech) Palliative Care - POLST Patient has POLST: Yes POLST Status: DNR, Comfort Measures Pain: Pain worsening (left shoulder and would benefit from increase of oxycodone doseage for comfort with continuation of acetaminophen) Drowsiness/Sedation: Moderate (4-6) Nausea: None Anorexia: Moderate (4-6) Sleep: Sleeps well Constipation: Managed Performance Status: Patient is nonambulatory. Mainly staying in bed versus getting out of bed in his tilt in space wheelchair. Incontinent of bowel and bladder. Requires assistance with feeding. No recent falls. FAS T7 C - Palliative Care Discussion: Patient has responded well to initiation of oxycodone 2.5 mg in the morning with routine acetaminophen 500 mg 3 times daily for his left shoulder osteoarthritis however, would benefit from further dose adjustment to ensure optimization of his comfort. Would recommend increasing oxycodone to 5 mg in the morning before a.m. care and 2.5 mg in the afternoon. Reviewed purpose, dose and side effects with both the patient's primary caregiver and significant other with understanding verbalized. The patient has had a further decrease in his left MAC to 25.5 cm which is not unexpected given the verbal report of decreased oral intake. The patient is demonstrating further functional and cognitive decline in the setting of further weight loss. The patient is presently pending being able to transfer to [facility] long-term care [facility] at the end of November if there is a bed available. There continues to be a struggle with caregiving support with only 1 primary caregiver presently and the patient's significant other provides assistance with the caregiving burden. The patient's significant other demonstrates caregiver burden physically with her own health struggles and burden that put her at increased risk of subsequent sequela leg with complications due to shouldering this burden. The patient significant other, Viviana has been supported by the patient's court to coordinate it guardian, Анна and they have built a rapport and ultimate goal to have the patient safe and comfortable. Given the patient's continued decline the patient significant other wishes to proceed forward with hospice services within the home environment and then transition to facility if and when that becomes available. Impression and Recommendations - Palliative Care Impression: This is an 85-year-old gentleman who was had the misfortune of sustaining an ischemic right MCA stroke that has led to functional decline and residual left hemiparesis. His underlying dementia has subsequently worsened after sustaining a CVA with behavioral disturbances which is presently controlled. He continues to have osteoarthritic pain to his left shoulder and responded well to routine oxycodone and would benefit from further dose titration to oxycodone 5 mg in the morning and 2.5 mg in the evening. He is also to continue on routine acetaminophen to optimize his comfort. The patient is showing further signs and symptoms of protein calorie malnutrition with reduction of his MAC to 25.5 cm. The patient's significant other continues to shoulder a significant amount of caregiver burden with the assistance of one private caregiver. The goal is to focus on comfort within the home setting for as long as possible and then transition to a facility setting if and when that becomes available. Patient is hospice appropriate and will transfer services to hospice at the request of the patient's significant other. Recommendations/Counseling Done: 1. Osteoarthritic pain. Multiple joints most pacifically to left shoulder. Continue acetaminophen 5 mg 3 times daily. Continue acetaminophen 5 mg every 8 hours as needed for discomfort not to exceed 3 g daily of acetaminophen from all sources. Continue to massage the left shoulder daily in the morning. Increase oxycodone to 5 mg first thing in the morning prior to a.m. care and 2.5 mg at 1400 after increased use to optimize comfort. Continue oxycodone 2.5 mg every 4 hours as needed for pain. Rx for oxycodone sent to [facility] pharmacy. Continue to monitor and adjust pain regimen as needed to optimize the patient's comfort and ensure optimal bowel movements. 2. Protein calorie malnutrition. In the setting of dementia. Left MAC decreased to 25.5 cm from 26.5 cm in 02/2020 indicative of progression of dementia. Caregiver and significant other continue to ensure caloric intake with protein rich drinks such as Ensure and smoothies with ice cream. However, despite these interventions the patient continues to demonstrate weight loss and muscular atrophy. Continue to encourage foods the patient finds pleasurable. No evidence of dysphagia. Continue to provide support port. 3. CVA with residual weakness. Sustained in July 2019. Chronic. Progressive. Supportive care. We will continue preventative measures for stroke with aspirin 81 mg daily. Requires 24-hour supervision within the home. Fall precautions. 4. Dementia with behavioral disturbances. Multifactorial due to underlying cognitive deficits prior to sustaining CVA in July 2019. Continue citalopram 10 mg daily. Discussed trial reduction of risperidone from 0.5 mg to 0.25 mg in the evening however, the patient significant other wishes to continue at dose of 0.5 mg as it has been effective. May readdress in the future. Patient is demonstrating a FAS T7 C with protein calorie malnutrition and to optimize the patient's comfort and provide additional support within the home setting will request that hospice services be initiated at the significant other's request. 5. Caregiver burden. Patient significant other continues to demonstrate her own underlying health problems and is at risk for subsequent health decline due to this burden. When the patient is admitted to hospice services he is eligible for additional caregiving support from the [place] system and will ask at the cabin worker follow-up regarding this. The patient's significant other is also supported by the patient's court-appointed guardian, Анна. Patient is on a waiting list for a senior care facility in [facility]. 6. Advanced care planning. Patient has POLST in place as DN AR with comfort measures. The patient has been demonstrating further signs and symptoms that he is tired as well as demonstrating further cognitive and functional decline and is appropriate to transition to hospice services at the request of his significant other. Total time spent 60 minutes with greater than 50% is spent in counseling c oronation of care with the patient, significant other and caregiver present; review of pain management; review of hospice philosophy and admission process; examination of patient; supportive listening; review of pain and symptom management as well as anticipatory guidance. Message left for patient's court appointed guardian, Анна Montano at [phone] who is presently out of the office today and will follow up next week regarding admission. Message left for patient's PCP updating regarding transition to hospice services. Disclaimer: The chart note was formulated using voice recognition technology and unfortunately sound alike errors may occur.
== END 2020-11-19 09:06 | disposition home or self-care (01) ==
LOC: PC 09:05
PROVIDERS: ATTEND Nurse Practitioner Family
DX: Z51.5 Encounter for palliative care (principal); I69.354 Hemiplegia and hemiparesis following cerebral infarction affecting left non-dominant side; F03.91 Unspecified dementia, unspecified severity, with behavioral disturbance; M19.012 Primary osteoarthritis, left shoulder; M89.49 Other hypertrophic osteoarthropathy, multiple sites; E46 Unspecified protein-calorie malnutrition; Z66 Do not resuscitate
CPT/HCPCS: 99350